=== PATIENT | male | born 1945 | race Caucasian/White ===

== ENCOUNTER 2020-11-22 06:25 | Day surgery (SDC) | payer OTHER ==
[~2020-11-22] VITALS: Ht 175.3 cm; Wt 59.1 kg
[~2020-11-22 06:25] MED LIST: ALBUTEROL SULF8.5 GM INH; ASPIR 8181 MG PO; ASPIRIN EC81 MG PO; AUGMENTIN 875-1 EACH PO; COLACE100 MG PO; COMBIVENT RESPIM4 GM INH; COZAAR100 MG PO; COZAAR25 MG PO; GLIPIZIDE XL5 MG PO; GLIPIZIDE5 MG PO; GLUCOPHAGE500 MG PO; HYDROCODON-ACE1 EA10 PO; LANTUS100 UNITS/ SUB-Q; METFORMIN HCL500 MG PO; NORVASC10 MG PO; OMEPRAZOLE10 MG PO; OMEPRAZOLE20 M1 PO; PERCOCET 5-3251 EACH PO; PERCOCET 7.5-31 EACH PO; PREDNISONE10 MG PO; PREDNISONE20 MG PO; REGLAN10 MG PO; REQUIP0.5 MG PO; ZITHROMAX250 MG PO
--- NOTE | 2020-11-22 09:17 | NUR ---
11/22/20 0917 Mackenzie Henderson 0904- PT ARRIVES TO PACU NONAROUSABLE TO NOXIOUS STIMULI WITH AN OPA IN PLACE. RESP EVEN AND SHALLOW. OXYGEN SAT HIGH 90'S ON 6L VIA MASK. 0909- PT REACTIVE TO STIMULI AND GAGGING ON HIS OPA. PT INSTRUCTED TO OPEN HIS MOUTH AND OPA REMOVED. OXYGEN MASK REPLACED AT 6L VIA. PT STARTS COUGHING FREQUENTLY. PRESSURE BEING HELD TO PT'S RIGHT INCISION. PT SOUNDS LIKE HE IS COUGHING UP SECRETIONS. MOUTH SUCTIONED. LUNG TODD ARE COARSE WITH A SLIGHT EXPIRATORY WHEEZE. DR. CARR NOTIFIED AND NEW ORDER RECEIVED.
[2020-11-22] MEDS ORDERED: IBUPROFEN600 MG PO (09:26)
[2020-11-22] MEDS ORDERED: ACETAMINOPHEN500 MG PO (09:27)
[2020-11-22] MEDS ORDERED: OXYCODON-ACETA1 EAC2 PO (09:27)
--- NOTE | 2020-11-22 10:44 | NUR ---
NEW VERBAL ORDER RECIEVED FOR T3 TO SUPRESS COUGH WELL TREAT PAIN. MEDICATED PER EMAR.
--- NOTE | 2020-11-23 10:04 | OR ---
[facility] [address], [place] [address] Signed DATE OF OPERATION: 11/22/2020 SURGEON: Irene Carr MD PREOPERATIVE DIAGNOSES: 1. Symptomatic right inguinal hernia. 2. Underlying chronic obstructive pulmonary disease, episodic cough. POSTOPERATIVE DIAGNOSES: 1. Right inguinal hernia, direct and indirect; indirect sac with sliding component (bladder fat). 2. Cord lipoma with nodule. ANESTHESIA: General endotracheal, Steve Rachael, SHOE CLERK and local 20 mL of 0.25% Marcaine with epinephrine. INDICATION: This 75-year-old white man is known to me from the past and is a patient of Dr. Syed. 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 He has underlying COPD, chronic cough, diabetes mellitus, hypertension, and other problems, but has developed rather significant right inguinal hernia which is relatively large, but completely reducible but quite symptomatic (painful). He is admitted to undergo repair at this time. He understands the risks of bleeding, infection, recurrent hernia, particularly given his chronic cough and COPD and other unforeseen complications. Understanding this, he wished to proceed. FINDINGS: There was a moderate-size lipoma of the cord, which had a firm nodule in the distal portion. This was excised. The hernia defect includes an indirect hernia sac without incarceration of hollow viscus both with bladder fat and the medial wall, which was freed up and ultimately hernia sac excised and ligated. The floor of the inguinal canal had an obvious direct defect as well. Implantation of Prolene mesh was undertaken in an underlay technique allowing for good repair of the hernia. Of note, the ilioinguinal nerve was well identified and preserved throughout. Electronically Signed By: IRENE CARR MD 11/23/20 1004 PATIENT NAME: ROSIE JANE OPERATIVE REPORT DATE OF : 43 REPORT #: [id number] PHYSICIAN: IRENE CARR MD PCP: ANTONELLA SYED MD REPORT IS CONFIDENTIAL AND NOT TO BE RELEASED WITHOUT AUTHORIZATION [facility] [address], [place] [address] Signed DESCRIPTION OF PROCEDURE: The patient was brought to the operating room, given a general endotracheal anesthetic. Preoperative antibiotic Ancef was given. Sequential compression device stockings were used and heparin subcutaneously administered. The lower abdomen was clipped and prepared with a chlorhexidine solution and draped sterilely. Affirmation of the right groin as the operative site was made. An incision was made cephalad to the pubic tubercle on the right side. Dissection was carried through the subcutaneous tissue with electrocautery. External oblique incised along its fibers and underlying ilioinguinal nerve was dissected free from the cremasteric muscle fibers and reflected around the external oblique protecting it throughout. The cord was mobilized from the floor with blunt and electrocautery dissection. The cord was encircled with a Bloxom drain. Dissection in the medial anterior aspect of the cord revealed a hernia sac, which was meticulously dissected free from the cord structures. Initially, noted was a lipoma of the cord laterally positioned and with a firm nodule in the distal portion. The hernia sac was dissected free fully and opened and internal inspection showed no sign of incarcerated hollow viscus, but there was on the medial wall a sliding component of bladder fat. This was dissected free from the hernia sac. The hernia sac was secured at its neck with 2 separate interrupted 2-0 silk sutures amputated and the sac amputated and passed for pathology. The lipoma of the cord was dissected free and similarly excised. An Allis clamp was applied to the tendon of the transversus abdominis. Medial to the inferior epigastric vessel was a hernia defect consistent with direct inguinal hernia. The attenuated fibers of the fascia transversalis were incised and properitoneal fat bluntly . The segment of Prolene mesh was cut to an elliptical configuration and secured in an underlay technique with interrupted 2-0 Prolene sutures. A defect was cut in the graft to accommodate the cord. The tails of the graft were secured laterally with all due care. A 20 mL of 0.25% Marcaine with epinephrine was injected locally. The cord was replaced into the canal. Hemostasis assured with electrocautery. The ilioinguinal nerve was replaced to the inguinal canal and the external oblique was reapproximated with running 2-0 Vicryl suture. Bryant layer was reapproximated with interrupted 3-0 Vicryl and skin closed with running subcuticular 3-0 Vicryl. Steri-Strips were applied as was an Acticoat silver sponge dressing. The patient tolerated procedure well and transferred to the recovery room in good condition. Notable in recovery room was a fair amount of coughing and straining. Hopefully, there is no effect on the recent repair. Electronically Signed By: IRENE CARR MD 11/23/20 1004 PATIENT NAME: ROSIE JANE OPERATIVE REPORT DATE OF : 43 REPORT #: [id number] PHYSICIAN: IRENE CARR MD PCP: ANTONELLA SYED MD REPORT IS CONFIDENTIAL AND NOT TO BE RELEASED WITHOUT AUTHORIZATION [facility] [address] [place] [address] Signed MD RONEN Mancuso/MADIL /[id number] cc: Antonella Syed MD Copies: ANTONELLA SYED MD ~ Electronically Signed By: IRENE CARR MD 11/23/20 1004 PATIENT NAME: ROSIE JANE OPERATIVE REPORT DATE OF : 43 REPORT #: [id number] PHYSICIAN: IRENE CARR MD PCP: ANTONELLA SYED MD REPORT IS CONFIDENTIAL AND NOT TO BE RELEASED WITHOUT AUTHORIZATION
--- NOTE | 2020-11-27 15:39 | PATH ---
[facility] [address] [place], [place] [address] Signed SPECIMEN(S): A RIGHT INDIRECT INGUINAL HERNIA SAC SPECIMEN(S): B LIPOMA OF CORD SPECIMEN SOURCE: A. RIGHT INDIRECT INGUINAL HERNIA SAC B. LIPOMA OF CORD CLINICAL HISTORY: Right inguinal hernia. FINAL PATHOLOGIC DIAGNOSIS: A. Right inguinal hernia sac: - Hernia sac. B. Lipoma of cord: - Congested fibroadipose tissue, consistent with features seen in lipoma of cord. COMMENT: Regarding specimen A, the specimen consists of benign fibrovascular tissue. There are changes compatible with a hernia sac. TWK:[facility]:C2NR MICROSCOPIC EXAMINATION: Histologic sections of all submitted blocks are examined by light microscopy. These findings, together with the gross examination, support the pathologic diagnosis. GROSS DESCRIPTION: Two specimens are received in two containers, labeled "JA." A. The specimen, labeled "JA, A," and designated on the requisition "right inguinal hernia sac," is received in formalin and consists of a portion of pink-mcginnis soft to membranous tissue (4.1 x 2.7 x 0.8 cm). Reporting Consultant sections are submitted in cassette A1. B. The specimen, labeled "JA, B," and designated on the requisition "lipoma of cord," is received in formalin and consists of a portion of yellow-mcginnis fatty tissue (5.5 x 2.3 x 1.3 cm). The specimen is inked blue and serially sectioned to reveal a yellow-mcginnis fatty lobulated cut surface with focal red-brown slightly firm area (1.6 x 1.4 x 1.0 cm). Reporting Consultant sections are submitted as follows: (B1) slightly firm area (B2-B3) fatty tissue PATIENT NAME: ROSIE JANE PATHOLOGY DATE OF : 43 REPORT #: [id number] PHYSICIAN: CAR YOUNG PCP: ANTONELLA SYED MD REPORT IS CONFIDENTIAL AND NOT TO BE RELEASED WITHOUT AUTHORIZATION [facility] [address] [facility] [place], [place] [address] Signed AC (under the direct supervision of a pathologist) The Gross Description was prepared using a voice recognition system. The report was reviewed for accuracy; however, sound-alike word errors, addition and/or deletions may occur. If there is any question about this report, please contact Client Services. PERFORMING LABORATORY: The technical component was performed by [employer], [address] [place] [address] (Rn Lvn: Awilda Napoles MD; CLIA# [id number]). The professional interpretation was performed by [facility], [address] [place] [address]. Diagnostician: Naren Wolf MD Pathologist Electronically Signed 11/27/2020 Copies: ~ PATIENT NAME: ROSIE JANE PATHOLOGY DATE OF : 43 REPORT #: [id number] PHYSICIAN: CAR PATHOLOGY PCP: ANTONELLA SYED MD REPORT IS CONFIDENTIAL AND NOT TO BE RELEASED WITHOUT AUTHORIZATION
== END 2020-11-22 11:25 | disposition home or self-care (01) ==
LOC: DS 06:25
PROVIDERS: ATTEND Surgery
PROC: 0YU50JZ Supplement Right Inguinal Region with Synthetic Substitute, Open Approach (ICD-10-PCS; principal; 2020-11-22 06:45)
DX: K40.90 Unilateral inguinal hernia, without obstruction or gangrene, not specified as recurrent (principal); D17.6 Benign lipomatous neoplasm of spermatic cord; J44.9 Chronic obstructive pulmonary disease, unspecified; I10 Essential (primary) hypertension; E11.9 Type 2 diabetes mellitus without complications; E78.00 Pure hypercholesterolemia, unspecified; K21.9 Gastro-esophageal reflux disease without esophagitis; M19.90 Unspecified osteoarthritis, unspecified site; G47.33 Obstructive sleep apnea (adult) (pediatric); F17.210 Nicotine dependence, cigarettes, uncomplicated; Z88.1 Allergy status to other antibiotic agents; Z88.8 Allergy status to other drugs, medicaments and biological substances; Z79.82 Long term (current) use of aspirin; Z79.4 Long term (current) use of insulin; Z79.899 Other long term (current) drug therapy; Z86.010 Personal history of colon polyps
CPT/HCPCS: 00830; 88302; 88304; C1781; J0131; J0690; J1100; J1644; J1885; J2001; J2370; J2405; J2704; J3010

== ENCOUNTER 2021-04-15 09:03 | Emergency (ER) | payer MEDICARE ==
[~2021-04-15] VITALS: Ht 175.3 cm; Wt 59.0 kg
[~2021-04-15 09:03] MED LIST changes: +ACETAMINOPHEN500 MG PO; +IBUPROFEN600 MG PO; +OXYCODON-ACETA1 EAC2 PO
[2021-04-15] MEDS ORDERED: PREDNISONE20 MG PO (12:07)
[2021-04-15] MEDS ORDERED: PERCOCET 5-3251 EACH PO (12:39)
--- NOTE | 2021-04-16 21:18 | EKG ---
[facility] [address] [facility] [place], [place] [address] Signed Normal sinus rhythm Left axis deviation Nonspecific ST abnormality Abnormal ECG When compared with ECG of 19-NOV-2020 10:55, QRS axis shifted left Confirmed by EUSEBIO LA DO ([id number]) on 04/16/2021 9:18:34 PM Electronically Signed By: EUSEBIO LA DO 04/16/212117 PATIENT NAME: ROSIE JANE Electrocardiogram DATE OF : 43 PHYSICIAN: EUSEBIO LA DO REPORT #: [id number] REPORT IS CONFIDENTIAL AND NOT TO BE RELEASED WITHOUT AUTHORIZATION
== END 2021-04-15 12:45 | disposition home or self-care (01) ==
LOC: ED 09:03
DX: J44.1 Chronic obstructive pulmonary disease with (acute) exacerbation (principal); I10 Essential (primary) hypertension; E11.9 Type 2 diabetes mellitus without complications; E78.00 Pure hypercholesterolemia, unspecified; F17.200 Nicotine dependence, unspecified, uncomplicated; Z88.1 Allergy status to other antibiotic agents; Z79.899 Other long term (current) drug therapy; Z79.82 Long term (current) use of aspirin; Z79.4 Long term (current) use of insulin; Z79.84 Long term (current) use of oral hypoglycemic drugs; Z20.822 Contact with and (suspected) exposure to COVID-19
CPT/HCPCS: 71045; 73630; 80048; 81001; 83880; 84484; 85025; 93005; 93010; 94640; 96374; 99285-25; C9803; J7512; U0003

== ENCOUNTER 2021-07-11 06:11 | Day surgery (SDC) | payer OTHER ==
[~2021-07-11] VITALS: Ht 175.3 cm; Wt 60.5 kg
--- NOTE | ~2021-07-11 | OR ---
[facility] [place] [facility] [address] [place], [place] [address] Draft DATE OF OPERATION: 07/11/2021 SURGEON: Irene Carr MD PREOPERATIVE DIAGNOSIS: History of Whipple resection and presumed gastroparesis. POSTOPERATIVE DIAGNOSES: 1. Anatomy consistent with Whipple resection and probable pyloric preservation. 2. Mild distal esophagitis with minimal Fierro's epithelial changes. 3. Retention of food in stomach (modest) probable gastroparesis with chronic gastritis. PROCEDURE: Upper endoscopy with biopsy. ANESTHESIA: Intravenous sedation; propofol infusion, Steve Cano CRNA. INDICATION: This 76-year-old white man is a patient of Dr. Syed at [facility]. He is referred for upper endoscopy. The patient is thought to have gastroparesis related in part to Whipple resection for duodenal tumor several years ago. He has no dysphagia or hematemesis. He has numerous other medical problems including advanced COPD. He understands the risk of bleeding, infection, and perforation related to upper endoscopy and wished to proceed. FINDINGS: There was retained material within the gastric remnant. It appeared that the pylorus was probably preserved (pylorus preserving Whipple resection). There was mild chronic distal esophagitis with minimal Fierro's changes. Retention of some portion of food in the stomach and mild gastritis. The jejunal limb appeared normal. The anastomosis was not strictured. PROCEDURE: The patient was brought to the endoscopy suite and placed in the lateral decubitus position with full cardiopulmonary monitoring and was given intravenous sedation with propofol infusional technique by the refinisher. A bite block was placed through the patient was edentulous. Ancef was given preoperatively. After satisfactory sedation, an Olympus video upper endoscope was passed in the hypopharynx. The vocal cords appeared normal. Scope was easily passed in the esophagus. Throughout its length, it had PATIENT NAME: ROSIE JANE OPERATIVE REPORT DATE OF : 43 REPORT #: [id number] PHYSICIAN: IRENE CARR MD PCP: JOHAN HERRERA MD REPORT IS CONFIDENTIAL AND NOT TO BE RELEASED WITHOUT AUTHORIZATION [facility] [place] [facility] [address] [place], [place] [address] Draft a chronic inflammatory appearance and some mucoid material. There was a feline appearance of the esophagus, but not typical of his eosinophilic esophagitis. The scope was passed into the stomach (gastric remnant) without problem showing retention of some mucoid bilious stained fluid suggestive though not diagnostic of gastroparesis. Scope was advanced to the gastrojejunal anastomosis which was widely patent. The scope was passed through it easily and the jejunal limb appeared normal, it was biopsied nevertheless. The scope was withdrawn and stomach biopsies were obtained as well as anastomotic biopsies. Retroflexed view showed a reasonably good flap valve. The scope was withdrawn to the distal esophagus. Small island of Fierro's epithelium was noted and not worrisome in appearance. Biopsies were obtained. The scope was withdrawn to the mid esophagus where biopsies were additionally obtained. Scope was removed and the patient was taken to the recovery room in good condition. CONCLUDING DIAGNOSIS: Anatomy consistent with prior Whipple resection with probable pyloric preservation though uncertain. There appears to be some component of delayed gastric emptying most likely, but no sign of gastric outlet obstruction. The flap valve was normal. There is minimal Fierro's epithelium. PLAN: If epigastric pain should occur, consideration might be made for Carafate prescription. Promotility agents are unlikely to be too effective in his case and his symptoms are rather minimal if any currently. He will return to the ongoing care of Dr. Syed at the [facility]. MD RONEN Mancuso/MODL /[id number] cc: Antonella Syed MD Copies: ANTONELLA SYED MD PATIENT NAME: ROSIE JANE OPERATIVE REPORT DATE OF : 43 REPORT #: [id number] PHYSICIAN: IRENE CARR MD PCP: JOHAN HERRERA MD REPORT IS CONFIDENTIAL AND NOT TO BE RELEASED WITHOUT AUTHORIZATION [facility] [place] [facility] [address] [place] [id number] Draft ~ PATIENT NAME: ROSIE JANE OPERATIVE REPORT DATE OF : 43 REPORT #: [id number] PHYSICIAN: IRENE CARR MD PCP: JOHAN HERRERA MD REPORT IS CONFIDENTIAL AND NOT TO BE RELEASED WITHOUT AUTHORIZATION
--- NOTE | 2021-07-11 08:03 | NUR ---
07/11/21 0803 Andrew,Kristen 0747 PT ARRIVED TO PACU ON 6L VIA NC, PT ASLEEP AND RESP EVEN AND UNLABORED. O2 DECREASED TO 2L. 0758 PT STARTS COUGHING AND O2 REMOVED. PT OPENS HIS EYES AND THEN EASILY FALLS BACK TO SLEEP.
--- NOTE | 2021-07-11 13:28 | NUR ---
PT ALERT, ORIENTED AND SUPPORTED BY HIS JULIUS. ALL QUESTIONS ASKED ANSWERED. PT REQUESTED PRAYER, JULIUS WILL REMAIN FOR DC. WILL FOLLOW NEEDED
--- NOTE | 2021-07-12 10:41 | PATH ---
[facility] [address] [place], [place] [address] Signed SPECIMEN(S): A JEJUNUM BIOPSY SPECIMEN(S): B GASTROJEJUNAL ANASTOMOSIS BIOPSY SPECIMEN(S): C BODY BIOPSY SPECIMEN(S): D DISTAL ESOPHAGEAL BIOPSY SPECIMEN(S): E MID ESOPHAGEAL BIOPSY SPECIMEN SOURCE: A. JEJUNUM BIOPSY B. GASTROJEJUNAL ANASTOMOSIS BIOPSY C. BODY BIOPSY D. DISTAL ESOPHAGEAL BIOPSY E. MID ESOPHAGEAL BIOPSY CLINICAL HISTORY: EGD. Gastroparesis, history of malignant tumor of duodenum (Whipple). Post: Chronic gastritis, possible Fierro's. FINAL PATHOLOGIC DIAGNOSIS: A. Small bowel, jejunum, biopsy: - Small bowel mucosa with focal reactive epithelial changes and mild villous blunting. - Negative for increased intraepithelial lymphocytes. - Negative for dysplasia or malignancy. B. Gastrojejunal anastomosis, biopsy: - Small bowel mucosa with villous blunting and reactive epithelial changes. - Negative for increased intraepithelial lymphocytes. - Negative for dysplasia or malignancy. C. Stomach, body, biopsy: - Oxyntic mucosa with focal wide reactive gastropathy. - Negative for Helicobacter organisms on HE stain. - Negative for dysplasia or malignancy. D. Esophagus, distal, biopsy: - Squamocolumnar junctional mucosa with mild chronic inflammation and reactive epithelial changes, suggestive of reflux esophagitis. - Negative for intestinal metaplasia, dysplasia, or malignancy. E. Esophagus, mid, biopsy: - Squamous mucosa with mild reactive changes and focal hyperkeratosis. - Negative for increased intraepithelial eosinophils. - Negative for intestinal metaplasia, dysplasia, or malignancy. NAL:cml:C2NR PATIENT NAME: ROSIE JANE PATHOLOGY DATE OF : 43 REPORT #: [id number] PHYSICIAN: CAR PATHOLOGY PCP: JOHAN HERRERA MD REPORT IS CONFIDENTIAL AND NOT TO BE RELEASED WITHOUT AUTHORIZATION [facility] [address] [place], [place] [address] Signed MICROSCOPIC EXAMINATION: Histologic sections of all submitted blocks are examined by light microscopy. These findings, together with the gross examination, support the pathologic diagnosis. GROSS DESCRIPTION: Five specimens are received in five containers, labeled "JA." A. The specimen, labeled "JA, 1," and designated on the requisition "jejunum," is received in formalin and consists of one mcginnis soft tissue fragment that measures 0.3 cm in greatest dimension. The specimen is entirely submitted in cassette (A1). B. The specimen, labeled "JA, 2," and designated on the requisition "gastrojejunal anastomosis," is received in formalin and consists of one mcginnis soft tissue fragment that measures 0.3 cm in greatest dimension. The specimen is entirely submitted in cassette (B1). C. The specimen, labeled "JA, 3," and designated on the requisition "stomach body," is received in formalin and consists of two mcginnis soft tissue fragments that measure 0.2-0.3 cm in greatest dimension. The specimen is entirely submitted in cassette (C1). D. The specimen, labeled "JA, 4," and designated on the requisition "distal esophagus," is received in formalin and consists of two mcginnis soft tissue fragments that measure 0.3 cm in greatest dimension. The specimen is entirely submitted in cassette (D1). E. The specimen, labeled "JA, 5," and designated on the requisition "mid esophagus," is received in formalin and consists of two mcginnis soft tissue fragments that measure 0.3-0.5 cm in greatest dimension. The specimen is entirely submitted in cassette (E1). AT (under the direct supervision of a pathologist) The Gross Description was prepared using a voice recognition system. The report was reviewed for accuracy; however, sound-alike word errors, addition and/or deletions may occur. If there is any question about this report, please contact Client Services. PERFORMING LABORATORY: The technical component was performed by [employer] [address] (CLIA# [id number]). Professional interpretation was performed by [facility], [address] [address] (CLIA# [id number]). PATIENT NAME: ROSIE JANE PATHOLOGY DATE OF : 43 REPORT #: [id number] PHYSICIAN: CAR YOUNG PCP: JOHAN HERRERA MD REPORT IS CONFIDENTIAL AND NOT TO BE RELEASED WITHOUT AUTHORIZATION [facility] [address] [place], [place] [address] Signed Diagnostician: Jeannette Kapadia MD Pathologist Electronically Signed 07/12/2021 Copies: ~ PATIENT NAME: ROSIE JANE PATHOLOGY DATE OF : 43 REPORT #: [id number] PHYSICIAN: CAR PATHOLOGY PCP: JOHAN HERRERA MD REPORT IS CONFIDENTIAL AND NOT TO BE RELEASED WITHOUT AUTHORIZATION
== END 2021-07-11 08:39 | disposition home or self-care (01) ==
LOC: OPS 06:11 → DS 06:13 → OPS 07:30 → DS 10:00
PROVIDERS: ATTEND Surgery
PROC: 0DB78ZX Excision of Stomach, Pylorus, Via Natural or Artificial Opening Endoscopic, Diagnostic (ICD-10-PCS; 2021-07-11)
PROC: 0DB68ZX Excision of Stomach, Via Natural or Artificial Opening Endoscopic, Diagnostic (ICD-10-PCS; 2021-07-11)
PROC: 0DBA8ZX Excision of Jejunum, Via Natural or Artificial Opening Endoscopic, Diagnostic (ICD-10-PCS; 2021-07-11)
PROC: 0DB28ZX Excision of Middle Esophagus, Via Natural or Artificial Opening Endoscopic, Diagnostic (ICD-10-PCS; principal; 2021-07-11 07:30)
DX: K31.9 Disease of stomach and duodenum, unspecified (principal); K20.90 Esophagitis, unspecified without bleeding; J44.9 Chronic obstructive pulmonary disease, unspecified; I10 Essential (primary) hypertension; C17.0 Malignant neoplasm of duodenum; Z88.1 Allergy status to other antibiotic agents; Z88.8 Allergy status to other drugs, medicaments and biological substances
CPT/HCPCS: J0690; J2704; J7121

== ENCOUNTER 2021-11-04 10:33 | Emergency (ER) | payer OTHER ==
[~2021-11-04] VITALS: Ht 175.3 cm; Wt 51.7 kg
[2021-11-04] MEDS ORDERED: DOXYCYCLINE HY100 MG PO (13:59)
[2021-11-04] MEDS ORDERED: PREDNISONE20 MG PO (13:59)
--- NOTE | 2021-11-05 07:29 | EKG ---
[facility] [address] [facility] [place] [address] Signed Sinus rhythm with premature supraventricular complexes and with occasional and consecutive premature ventricular complexes Low voltage QRS Nonspecific ST and T wave abnormality Abnormal ECG When compared with ECG of 15-APR-2021 10:56, premature ventricular complexes are now present premature supraventricular complexes are now present QRS axis shifted right ST more depressed in Inferior leads Confirmed by DARIUS RIDER MD ([id number]) on 11/05/2021 7:29:08 AM Electronically Signed By: DARIUS RIDER MD 11/05/21 0729 PATIENT NAME: ROSIE JANE Electrocardiogram DATE OF : 43 PHYSICIAN: DARIUS RIDER MD REPORT #: [id number] REPORT IS CONFIDENTIAL AND NOT TO BE RELEASED WITHOUT AUTHORIZATION
== END 2021-11-04 14:41 | disposition home or self-care (01) ==
LOC: ED 10:33
DX: J40 Bronchitis, not specified as acute or chronic (principal); E11.649 Type 2 diabetes mellitus with hypoglycemia without coma; I10 Essential (primary) hypertension; J44.9 Chronic obstructive pulmonary disease, unspecified; F17.200 Nicotine dependence, unspecified, uncomplicated; Z88.8 Allergy status to other drugs, medicaments and biological substances; Z79.899 Other long term (current) drug therapy; Z79.82 Long term (current) use of aspirin; Z79.4 Long term (current) use of insulin
CPT/HCPCS: 36415; 36600; 71045; 80053; 81001; 82803; 83605; 83690; 84484; 85025; 87502; 93005; 93010; 94640; 96374; 99285-25; J1100; U0003

== ENCOUNTER 2021-12-05 17:07 | Emergency (ER) | payer OTHER, MEDICARE ==
[~2021-12-05] VITALS: Ht 175.3 cm; Wt 56.7 kg
[~2021-12-05 17:07] MED LIST changes: +ADVAIR 500-501 EACH INH; -ALBUTEROL SULF8.5 GM INH; +BACLOFEN20 MG PO; +DOXYCYCLINE HY100 MG PO; -GLUCOPHAGE500 MG PO; +HYDROCODON-ACE1 EAC8 PO; +IPRAT-ALBUT 0.5-3 ML INH; +LANTUS SOL100 UNIT/1 SUB-Q; -LANTUS100 UNITS/ SUB-Q; +MEGESTROL400 MG/10 PO; +MULTI VITAMIN1 EACH PO; +NARCAN4 MG NAS; +PRAVASTATIN SOD80 MG PO; +PRESERVISION A1 EACH PO; +PROVENTIL HFA6.7 GM INH; -REQUIP0.5 MG PO; +ROPINIROLE HCL4 MG PO
--- OUTSIDE RECORDS SUMMARY | 2021-12-05 17:14 | XMS ---
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 CRITERIA MET - [facility] - 2 Visits in 30 Days CARE PROVIDERS [facility] Internal Medicine: Pulmonary Disease Current PHONE: Unknown SHARON [facility] Current PHONE: [phone] Sonali has no Care Guidelines for this patient. E.D. VISIT COUNT (12 MO.) [address] [place] [address] TOTAL 4 NOTE: Visits indicate total known visits. 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 - long term (current) use of aspirin - Essential (primary) hypertension - Pure hypercholesterolemia, unspecified - Contact with and (suspected) exposure to COVID-19 - Weakness - Type 2 diabetes mellitus without complications - long term (current) use of insulin - Allergy status to other antibiotic agents - long term (current) use of oral hypoglycemic drugs INPATIENT VISIT TRACKING (12 MO.) 11/07/2021:17 [facility] [place] TYPE: Observation COMPLAINT: - JUAN F DIAGNOSES: - Restless legs syndrome - Chronic obstructive pulmonary disease with (acute) exacerbation - Atrial premature depolarization - Chronic pain syndrome - Unspecified fall, initial encounter - Contact with and (suspected) exposure to COVID-19 - long term (current) use of oral hypoglycemic drugs - long term (current) use of aspirin - FDC (current) use of insulin - Opioid dependence, uncomplicated - Allergy status to other drugs, medicaments and biological substances - Acute kidney failure, unspecified - Allergy status to other antibiotic agents - Nicotine dependence, unspecified, uncomplicated - Essential (primary) hypertension - Type 2 diabetes mellitus with hyperglycemia [email or web address]
[2021-12-05] MEDS ORDERED: PLAVIX75 MG PO (20:01)
--- NOTE | 2021-12-07 17:35 | EKG ---
[facility] [address] [facility] [place] [address] Signed Normal sinus rhythm Left anterior fascicular block Abnormal ECG When compared with ECG of 07-NOV-2021 15:41, premature atrial complexes are no longer present Confirmed by BRETT DÍAZ MD ([id number]) on 12/07/2021 5:35:37 PM Electronically Signed By: BRETT DÍAZ MD 12/07/21 1735 PATIENT NAME: ROSIE JANE Electrocardiogram DATE OF : 43 PHYSICIAN: BRETT DÍAZ MD REPORT #: [id number] REPORT IS CONFIDENTIAL AND NOT TO BE RELEASED WITHOUT AUTHORIZATION
== END 2021-12-05 20:30 | disposition home or self-care (01) ==
LOC: ED 17:07
DX: G45.9 Transient cerebral ischemic attack, unspecified (principal); I10 Essential (primary) hypertension; J44.9 Chronic obstructive pulmonary disease, unspecified; E11.9 Type 2 diabetes mellitus without complications; F17.200 Nicotine dependence, unspecified, uncomplicated; Z88.1 Allergy status to other antibiotic agents; Z88.8 Allergy status to other drugs, medicaments and biological substances; Z79.52 Long term (current) use of systemic steroids; Z79.4 Long term (current) use of insulin
CPT/HCPCS: 36415; 70450; 70496; 70498; 71045; 80053; 84484; 85025; 85610; 85730; 87502; 93005; 93010; 99285-25; C9803; Q3014; Q9967; U0003

== ENCOUNTER 2021-12-29 02:32 | Emergency (ER) | payer OTHER, MEDICARE ==
[~2021-12-29] VITALS: Ht 175.3 cm; Wt 55.8 kg
[~2021-12-29 02:32] MED LIST changes: +CEFPODOXIME PR200 MG PO; +PLAVIX75 MG PO
--- OUTSIDE RECORDS SUMMARY | 2021-12-29 02:38 | XMS ---
PreManage Notification: ROSIE JANE Security Pulpit Operator Events No recent Security Events currently on file CRITERIA MET - [facility] - 2 Visits in 30 Days CARE PROVIDERS [facility] Internal Medicine: Pulmonary Disease Current PHONE: Unknown JOHAN HERRERA [facility] Current PHONE: [phone] Sonali has no Care Guidelines for this patient. Durga VISIT COUNT (12 MO.) [address] [place] [address] TOTAL 6 NOTE: Visits indicate total known visits. ED/UCC VISIT TRACKING (12 MO.) 12/29/2021 02:32 [facility] TYPE: Emergency COMPLAINT: - BLOOD SUGAR PROBLEM 12/13/2021 08:54 [facility] TYPE: Emergency COMPLAINT: - CHEST PAIN 12/05/2021 17:07 [facility] TYPE: Emergency COMPLAINT: - POSS STROKE DIAGNOSES: - Nicotine dependence, unspecified, uncomplicated - Contact with and (suspected) exposure to COVID-19 - Chronic obstructive pulmonary disease, unspecified - Weakness - Transient cerebral ischemic attack, unspecified - terminal clerk (current) use of systemic steroids - USP (current) use of insulin - Type 2 diabetes mellitus without complications - Allergy status to other drugs, medicaments and biological substances - Allergy status to other antibiotic agents - Essential (primary) hypertension 11/07/2021 15:16 [facility] TYPE: Emergency COMPLAINT: - FALL 11/04/2021 10:33 [facility] TYPE: Emergency COMPLAINT: - WEAKNESS DIAGNOSES: - terminal clerk (current) use of insulin - Essential (primary) hypertension - Nicotine dependence, unspecified, uncomplicated - Contact with and (suspected) exposure to COVID-19 - USP (current) use of aspirin - Bronchitis, not specified as acute or chronic - Allergy status to other drugs, medicaments and biological substances - Shortness of breath - Other long term care social worker (current) drug therapy - Type 2 diabetes mellitus with hypoglycemia without coma - Chronic obstructive pulmonary disease, unspecified 04/15/2021 09:04 [facility] TYPE: Emergency COMPLAINT: - MULTIPLE COMPLAINTS DIAGNOSES: - terminal clerk (current) use of oral hypoglycemic drugs - Nicotine dependence, unspecified, uncomplicated - Chronic obstructive pulmonary disease with (acute) exacerbation - Other long term care social worker (current) drug therapy - USP (current) use of aspirin - Essential (primary) hypertension - Pure hypercholesterolemia, unspecified - Contact with and (suspected) exposure to COVID-19 - Weakness - Type 2 diabetes mellitus without complications - USP (current) use of insulin - Allergy status to other antibiotic agents INPATIENT VISIT TRACKING (12 MO.) 12/15/2021 12:[address] [facility] TYPE: Medical Surgical COMPLAINT: - PNEUMONIA DIAGNOSES: - Essential (primary) hypertension - Personal history of malignant neoplasm of pancreas - Essential (primary) hypertension - Edema, unspecified - Contact with and (suspected) exposure to COVID-19 - Allergy status to other antibiotic agents - Pneumonia due to other streptococci - Pneumonia due to other streptococci - Allergy status to other drugs, medicaments and biological substances - Other specified postprocedural states - Chronic obstructive pulmonary disease with (acute) lower respiratory infection - Allergy status to other drugs, medicaments and biological substances - Nicotine dependence, cigarettes, uncomplicated - Other specified postprocedural states - Pneumonia, unspecified organism - Edema, unspecified - Other [facility] (current[facility] drug therapy - Chronic obstructive pulmonary disease with (acute) lower respiratory infection - Type 2 diabetes mellitus without complications - Type 2 diabetes mellitus without complications - Other long term care social worker (current) drug therapy - Tobacco abuse counseling - Tobacco abuse counseling - Contact with and (suspected) exposure to COVID-19 - Personal history of malignant neoplasm of pancreas - Allergy status to other antibiotic agents - Nicotine dependence, cigarettes, uncomplicated 11/07/2021 15:17 [facility] TYPE: Observation COMPLAINT: - JUAN F DIAGNOSES: - Type 2 diabetes mellitus with hyperglycemia - Restless legs syndrome - Chronic obstructive pulmonary disease with (acute) exacerbation - Atrial premature depolarization - Chronic pain syndrome - Unspecified fall, initial encounter - Contact with and (suspected) exposure to COVID-19 - terminal clerk (current) use of oral hypoglycemic drugs - terminal clerk (current) use of aspirin - USP (current) use of insulin - Opioid dependence, uncomplicated - Allergy status to other drugs, medicaments and biological substances - Acute kidney failure, unspecified - Allergy status to other antibiotic agents - Nicotine dependence, unspecified, uncomplicated - Essential (primary) hypertension [email or web address]
== END 2021-12-29 07:10 | disposition home or self-care (01) ==
LOC: ED 02:32
DX: E11.649 Type 2 diabetes mellitus with hypoglycemia without coma (principal); J44.9 Chronic obstructive pulmonary disease, unspecified; R33.9 Retention of urine, unspecified; I10 Essential (primary) hypertension; E78.00 Pure hypercholesterolemia, unspecified; F17.200 Nicotine dependence, unspecified, uncomplicated; Z88.1 Allergy status to other antibiotic agents; Z88.8 Allergy status to other drugs, medicaments and biological substances; Z79.899 Other long term (current) drug therapy; Z79.4 Long term (current) use of insulin; Z79.02 Long term (current) use of antithrombotics/antiplatelets; Z79.82 Long term (current) use of aspirin
CPT/HCPCS: 36415; 51702; 71045; 74177; 80053; 81001; 83880; 85025; 85610; 85730; 94640; 99285-25; J1170; J2405; J2930; Q9967

== ENCOUNTER 2021-12-30 10:10 | Emergency (ER) | payer OTHER, MEDICARE ==
[~2021-12-30] VITALS: Ht 175.3 cm; Wt 55.8 kg
--- OUTSIDE RECORDS SUMMARY | 2021-12-30 10:22 | XMS ---
PreManage Notification: ROSIE JANE Security Partridge Farmer Events No recent Security Events currently on file CRITERIA MET - 6 ED Visits in 6 Months - [facility] - 2 Visits in 30 Days CARE PROVIDERS [facility] Internal Medicine: Pulmonary Disease Current PHONE: Unknown SHARON [facility] Current PHONE: [phone] Sonali has no Care Guidelines for this patient. Durga VISIT COUNT (12 MO.) [address] [place] [address] TOTAL 7 NOTE: Visits indicate total known visits. ED/UCC VISIT TRACKING (12 MO.) 12/30/2021 10:10 [facility] TYPE: Emergency COMPLAINT: - CHEST PAIN 12/29/2021 02:32 [facility] TYPE: Emergency COMPLAINT: - BLOOD SUGAR PROBLEM 12/13/2021 08:54 [facility] TYPE: Emergency COMPLAINT: - CHEST PAIN 12/05/2021 17:07 [facility] TYPE: Emergency COMPLAINT: - POSS STROKE DIAGNOSES: - Weakness - Transient cerebral ischemic attack, unspecified - assisted (current) use of systemic steroids - assisted (current) use of insulin - Type 2 diabetes mellitus without complications - Allergy status to other drugs, medicaments and biological substances - Allergy status to other antibiotic agents - Essential (primary) hypertension - Nicotine dependence, unspecified, uncomplicated - Contact with and (suspected) exposure to COVID-19 - Chronic obstructive pulmonary disease, unspecified 11/07/2021 15:16 [facility] TYPE: Emergency COMPLAINT: - FALL 11/04/2021 10:33 [facility] TYPE: Emergency COMPLAINT: - WEAKNESS DIAGNOSES: - Contact with and (suspected) exposure to COVID-19 - termite exterminator helper (current) use of aspirin - Bronchitis, not specified as acute or chronic - Allergy status to other drugs, medicaments and biological substances - Shortness of breath - Other bed bug exterminator (current) drug therapy - Type 2 diabetes mellitus with hypoglycemia without coma - Chronic obstructive pulmonary disease, unspecified - assisted (current) use of insulin - Essential (primary) hypertension - Nicotine dependence, unspecified, uncomplicated 04/15/2021 09:04 [facility] TYPE: Emergency COMPLAINT: - MULTIPLE COMPLAINTS DIAGNOSES: - assisted (current) use of aspirin - Essential (primary) hypertension - Pure hypercholesterolemia, unspecified - Contact with and (suspected) exposure to COVID-19 - Weakness - Type 2 diabetes mellitus without complications - termite exterminator helper (current) use of insulin - Allergy status to other antibiotic agents - assisted (current) use of oral hypoglycemic drugs - Nicotine dependence, unspecified, uncomplicated - Chronic obstructive pulmonary disease with (acute) exacerbation - Other bed bug exterminator (current) drug therapy INPATIENT VISIT TRACKING (12 MO.) 12/15/2021 12:42 [facility] TYPE: Medical Surgical COMPLAINT: - PNEUMONIA DIAGNOSES: - Allergy status to other drugs, medicaments and biological substances - Pneumonia due to other streptococci - Other specified postprocedural states - Chronic obstructive pulmonary disease with (acute) lower respiratory infection - Allergy status to other drugs, medicaments and biological substances - Nicotine dependence, cigarettes, uncomplicated - Other specified postprocedural states - Pneumonia, unspecified organism - Other longterm (current) drug therapy - Edema, unspecified - Chronic obstructive pulmonary disease with (acute) lower respiratory infection - Type 2 diabetes mellitus without complications - Other bed bug exterminator (current) drug therapy - Type 2 diabetes mellitus without complications - Tobacco abuse counseling - Tobacco abuse counseling - Contact with and (suspected) exposure to COVID-19 - Personal history of malignant neoplasm of pancreas - Allergy status to other antibiotic agents - Nicotine dependence, cigarettes, uncomplicated - Essential (primary) hypertension - Personal history of malignant neoplasm of pancreas - Essential (primary) hypertension - Contact with and (suspected) exposure to COVID-19 - Edema, unspecified - Allergy status to other antibiotic agents - Pneumonia due to other streptococci 11/07/2021 15:17 [facility] TYPE: Observation COMPLAINT: - JUAN F DIAGNOSES: - Chronic pain syndrome - Unspecified fall, initial encounter - Contact with and (suspected) exposure to COVID-19 - termite exterminator helper (current) use of oral hypoglycemic drugs - termite exterminator helper (current) use of aspirin - termite exterminator helper (current) use of insulin - Opioid dependence, uncomplicated - Allergy status to other drugs, medicaments and biological substances - Acute kidney failure, unspecified - Allergy status to other antibiotic agents - Nicotine dependence, unspecified, uncomplicated - Essential (primary) hypertension - Type 2 diabetes mellitus with hyperglycemia - Restless legs syndrome - Chronic obstructive pulmonary disease with (acute) exacerbation - Atrial premature depolarization [email or web address]
--- NOTE | 2021-12-30 16:18 | EKG ---
[facility] [address] [place] [address] Signed Sinus rhythm with occasional premature ventricular complexes Left axis deviation Low voltage QRS Abnormal ECG When compared with ECG of 13-DEC-2021 08:55, premature ventricular complexes are now present Confirmed by DARIUS RIDER MD ([id number]) on 12/30/2021 4:18:26 PM Electronically Signed By: DARIUS RIDER MD 12/30/21 1618 PATIENT NAME: ROSIE JANE Electrocardiogram DATE OF : 43 PHYSICIAN: DARIUS RIDER MD REPORT #: [id number] REPORT IS CONFIDENTIAL AND NOT TO BE RELEASED WITHOUT AUTHORIZATION
== END 2021-12-30 12:30 | disposition home or self-care (01) ==
LOC: ED 10:10
DX: R07.9 Chest pain, unspecified (principal); K59.00 Constipation, unspecified; J44.9 Chronic obstructive pulmonary disease, unspecified; I10 Essential (primary) hypertension; E11.9 Type 2 diabetes mellitus without complications; E78.00 Pure hypercholesterolemia, unspecified; F17.200 Nicotine dependence, unspecified, uncomplicated; Z88.1 Allergy status to other antibiotic agents; Z88.8 Allergy status to other drugs, medicaments and biological substances; Z79.899 Other long term (current) drug therapy; Z79.4 Long term (current) use of insulin; Z79.84 Long term (current) use of oral hypoglycemic drugs
CPT/HCPCS: 36415; 71045; 80053; 83735; 84484; 85025; 93005; 93010; 94640; 99285-25

== ENCOUNTER 2022-10-21 12:24 | Emergency (ER) | payer MEDICARE ==
[~2022-10-21] VITALS: Ht 175.3 cm; Wt 60.9 kg
--- OUTSIDE RECORDS SUMMARY | ~2022-10-21 | XMS | Continuity of Care Document ---
Demographics + + + | Address | [address] | | | [place] [address] | + + + | Preferred Language | Unknown | + + + | Marital Status | | + + + | Yazidism Affiliation | Unknown | + + + | Race | White | + + + | Ethnic Group | Unknown | + + + Author + + + | Author | [facility] | + + + | Organization | [facility] | + + + | Address | [address] | | | [place] [address] | + + + | Phone | | + + + Care Team Providers + + + + | Care Aircraft Instrument Mechanic Name | Role | Phone | + + + + Unavailable | Unavailable | + + + + Allergies and Intolerances + + + + + + | date | description | facility | reaction | severity | + + + + + + | (no date) | NO ALLERGY | [facility] | (no reaction) | (no severity) | | | INFORMATION ON | Medical Center | | | | | FILE | Hospital | | | + + + + + + Encounters No information. Functional Status No information. Immunizations No information. Medications No information. Problems + + + + | date | description | facility | + + + + | 2022-09-01 18:33 | TYPE 2 DIABETES MELLITUS | [facility] | | | WITHOUT COMPLICATIONS | | + + + + | 2022-09-01 18:33 | NICOTINE DEPENDENCE, | [facility] | | | UNSPECIFIED, UNCOMPLICATED | | + + + + | 2022-09-01 18:33 | Essential (primary) | [facility] | | | hypertension | | + + + + | 2022-09-01 18:33 | CHR OBSTRUCTIVE PULMON | [facility] | | | DISEASE WITH (ACUTE) LOWER | | + + + + | 2022-09-01 18:33 | CHRONIC OBSTRUCTIVE | [facility] | | | PULMONARY DISEASE W (ACUTE) | | | | EX | | + + + + | 2022-09-01 18:33 | PAIN IN LEFT SHOULDER | [facility] | + + + + | 2022-09-01 18:33 | CONTUSION OF LEFT ELBOW, | [facility] | | | INITIAL ENCOUNTER | | + + + + | 2022-09-01 18:33 | LACERATION WITHOUT FOREIGN | [facility] | | | BODY OF RIGHT ELBOW, IN | | + + + + | 2022-09-01 18:33 | LACERATION WITHOUT FOREIGN | [facility] | | | BODY OF LEFT ELBOW, INI | | + + + + | 2022-09-01 18:33 | LACERATION W/O FOREIGN | [facility] | | | BODY OF RIGHT FOREARM, INIT | | | | | | + + + + | 2022-09-01 18:33 | LACERATION WITHOUT FOREIGN | [facility] | | | BODY OF LEFT FOREARM, I | | + + + + | 2022-09-01 18:33 | STRIKING AGAINST OTH | [facility] | | | OBJECT W SUBSEQUENT FALL, | | | | INI | | + + + + | 2022-09-01 18:33 | USP (CURRENT) USE OF | [facility] | | | INSULIN | | + + + + | 2022-09-01 18:33 | COLOR CHECKER ROVING OR YARN (CURRENT) USE OF | [facility] | | | SYSTEMIC STEROIDS | | + + + + | 2022-09-01 18:33 | COLOR CHECKER ROVING OR YARN (CURRENT) USE OF | [facility] | | | ASPIRIN | | + + + + | 2022-09-01 18:33 | OTHER COLOR CHECKER ROVING OR YARN (CURRENT) | [facility] | | | DRUG THERAPY | | + + + + | 2022-09-01 18:33 | ALLERGY STATUS TO OTHER | [facility] | | | ANTIBIOTIC AGENTS STATUS | | + + + + | 2022-09-01 18:33 | ALLERGY STATUS TO OTH | [facility] | | | DRUG/MEDS/BIOL SUBST STATUS | | | | | | + + + + | 2022-09-01 18:33 | PRESENCE OF LEFT | [facility] | | | ARTIFICIAL HIP JOINT | | + + + + | 2022-09-26 08:41 | EFFUSION, LEFT ELBOW | [facility] | + + + + | 2022-09-26 08:41 | CONTUSION OF LEFT ELBOW, | [facility] | | | SUBSEQUENT ENCO | | + + + + | 2022-09-26 08:41 | CONTUSION OF LEFT ELBOW, | [facility] | | | SUBSEQUENT ENCOUNTER | | + + + + Procedures No information. Results/Labs No information. Social History No information. Vital Signs No information."
--- OUTSIDE RECORDS SUMMARY | ~2022-10-21 | XMS | Continuity of Care Document ---
Demographics + + + | Address | [address] | | | [place] [address] | + + + | Preferred Language | Unknown | + + + | Marital Status | | + + + | Hinduism Affiliation | Unknown | + + + | Race | White | + + + | Ethnic Group | Unknown | + + + Author + + + | Author | [facility] | + + + | Organization | [facility] | + + + | Address | [address] | | | [place] [address] | + + + | Phone | | + + + Care Team Providers + + + + | Care Sewer Connector Name | Role | Phone | + + + + Unavailable | Unavailable | + + + + Allergies and Intolerances + + + + + + | date | description | facility | reaction | severity | + + + + + + | (no date) | NO ALLERGY | [facility] | (no reaction) | (no severity) [...] + + + | 2022-09-01 18:33 | ASSISTED (CURRENT) USE OF | [facility] | | | INSULIN | | + + + + | 2022-09-01 18:33 | DEBIT AGENT (CURRENT) USE OF | [facility] | | | SYSTEMIC STEROIDS | | + + + + | 2022-09-01 18:33 | DEBIT AGENT (CURRENT) USE OF | [facility] | | | ASPIRIN | | + + + + | 2022-09-01 18:33 | OTHER DEBIT AGENT (CURRENT) | [facility] | | | DRUG [...]
[~2022-10-21 12:24] MED LIST changes: +AMOX TR-K CLV1 EAC1 PO; +COLCRYS0.6 MG PO; +FUROSEMIDE20 MG PO; +GABAPENTIN300 MG PO; +POTASSIUM CHLO10 ME1 PO; +SPIRIVA18 MCG INH
[2022-10-21] MEDS ORDERED: PREDNISONE20 MG PO (13:05)
[2022-10-21] MEDS ORDERED: CLOPIDOGREL75 MG PO (13:06)
[2022-10-21 17:50] VITALS: BP 116/72
--- NOTE | 2022-10-21 20:53 | EKG ---
[facility] [address] [place] [address] Signed Normal sinus rhythm Left axis deviation Low voltage QRS Abnormal ECG When compared with ECG of 01-SEP-2022 19:37, No significant change was found Confirmed by Bertha Sanchez MD () on 10/21/2022 8:53:09 PM Electronically Signed By: BERTHA SANCHEZ MD 10/21/222052 PATIENT NAME: CAMERONROSIE HARTMAN Electrocardiogram DATE OF : 43 PHYSICIAN: BERTHA SANCHEZ MD REPORT #: [id number] REPORT IS CONFIDENTIAL AND NOT TO BE RELEASED WITHOUT AUTHORIZATION
== END 2022-10-21 17:59 | disposition home or self-care (01) ==
LOC: ED 12:24
DX: R53.1 Weakness (principal); J44.9 Chronic obstructive pulmonary disease, unspecified; R60.0 Localized edema; I10 Essential (primary) hypertension; E11.9 Type 2 diabetes mellitus without complications; E78.00 Pure hypercholesterolemia, unspecified; F17.200 Nicotine dependence, unspecified, uncomplicated; Z88.1 Allergy status to other antibiotic agents; Z88.8 Allergy status to other drugs, medicaments and biological substances; Z79.899 Other long term (current) drug therapy; Z79.4 Long term (current) use of insulin; Z79.52 Long term (current) use of systemic steroids
CPT/HCPCS: 36415; 71045; 80053; 83735; 83880; 84484; 85025; 93005; 93010; 94640; 96374; 99285-25; 99406; J1940

== ENCOUNTER 2023-01-07 13:08 | Inpatient (IN) | payer OTHER ==
[~2023-01-07] VITALS: Ht 175.3 cm; Wt 59.0 kg
[~2023-01-07 13:08] MED LIST changes: +CLOPIDOGREL75 MG PO
[2023-01-07 13:34] LABS: BASOPHILS 0.8 % (0-2); EOSINOPHILS 3.8 % (0-6); HEMATOCRIT 42.4 % (35.0-50.0); HEMOGLOBIN 13.7 g/dL (12.0-18.0); LYMPHOCYTES 10.6 % (24-44); MCHC 32.4 g/dl (30-36); MCV 92.8 fl (81-99); MONOCYTES 8.7 % (0-12); NEUTROPHILS 76.1 % (39-80); PLATELET COUNT 213 K/uL (140-440); RBC 4.57 M/ul (4.3-5.7); RDW 16.5 (10.5-15.0)
[2023-01-07 13:46] LABS: ALBUMIN 3.7 g/dL (3.4-5.0); ANION GAP 13.5 (7-21); BILIRUBIN, TOTAL 0.4 ng/dL (0.2-1.0); BUN/CREATININE RATIO 19.54 (6.0-28.6); CALCIUM 9.7 mg/dL (8.5-10.1); CREATININE, SERUM 0.87 mg/dL (0.70-1.30); MAGNESIUM 2.1 mg/dL (1.8-2.4); POTASSIUM 4.5 mmol/L (3.5-5.1); PROTEIN, TOTAL 7.4 g/dL (6.4-8.2)
[2023-01-07 16:11] LABS: INFLUENZA B NAA NEGATIVE (NEGATIVE); RESPIRATORY SYNCYTIAL VIR NAA NEGATIVE (NEGATIVE)
--- NOTE | 2023-01-07 20:44 | EKG ---
[facility] [address] [place] [address] Signed Normal sinus rhythm Left axis deviation Abnormal ECG When compared with ECG of 05-NOV-2022 19:35, T wave amplitude has increased in Lateral leads Confirmed by Bertha Sanchez MD () on 01/07/2023 8:44:06 PM Electronically Signed By: BERTHA SANCHEZ MD 01/07/232043 PATIENT NAME: CAMERONROSIE HARTMAN Electrocardiogram DATE OF : 43 PHYSICIAN: BERTHA SANCHEZ MD REPORT #: [id number] REPORT IS CONFIDENTIAL AND NOT TO BE RELEASED WITHOUT AUTHORIZATION
--- NOTE | 2023-01-07 21:00 | NUR ---
PT ARRIVED TO UNIT AT 2030. PT ARRIVED DROWSY FROM PREVIOUSLY GIVEN ATIVAN, BUT ABLE TO COMMUNICATE AND IS A&O X4. PT IS A LITTLE FORGETFUL AT THIS TIME. PT ARRIVED ON 2L NC, SPO2 97%. LUNGS ARE COARSE AND DIMISHED, PT HAS A WET COUGH BUT IN NON PRODUCTIVE. BP AND HEART RYTHEM WNL. PT DID URINATE IN URINAL WITH OUT TROUBLE. PT DOES HAVE GENERALIZED BRUISING. FAMILY IS AT BEDSIDE. ALL QUESTIONS AND CONCERNS ADDRESSED. PT DID RECIEVE A SNACK. PT IS NOW RESTING, CALL LIGHT WITH IN REACH AND BED ALARM IS SET.
[2023-01-07 21:07] VITALS: BP 148/78
--- NOTE | 2023-01-07 22:00 | NUR ---
PT IS RESTING IN BED. VS ARE WNL. NO COMPLAINTS OF PAIN. ALL QUESTIONS AND CONCERNS ADDRESSED. CALL LIGHT WITH IN REACH.
[2023-01-08] VITALS (9 sets, daily range): BP systolic 111–145; BP diastolic 46–81
--- NOTE | 2023-01-08 | NUR ---
PT IS RESTING IN BED. VS ARE WNL, NO COMPLAINTS OF PAIN AT THIS TIME. PT ABLE TO USE URINAL. NO QUESTION OR CONCERNS AT THIS TIME. CALL LIGHT WITH IN REACH.
--- NOTE | 2023-01-08 02:00 | NUR ---
PT IS RESTING. PT DID REQUEST URINAL. NO COMPLAINTS OF PAIN. ALL QUESTIONS AND CONCERNS ADDRESSED. PT REPOSITIONS SELF. CALL LIGHT WITH IN REACH, BED ALARM SET.
--- NOTE | 2023-01-08 04:29 | NUR ---
PT RESTING IN BED, PT CALLED FOR URINAL. NO COMPLAINTS AT THIS TIME. PT REPOSITIONS SELF. CALL LIGHT WITH IN REACH AND BED ALARM SET. VS ARE WNL.
[2023-01-08 05:39] LABS: BASOPHILS 0.6 % (0-2); HEMATOCRIT 40.9 % (35.0-50.0); HEMOGLOBIN 13.3 g/dL (12.0-18.0); LYMPHOCYTES 6.9 % (24-44); MCHC 32.4 g/dl (30-36); MCV 92.4 fl (81-99); MONOCYTES 1.1 % (0-12); NEUTROPHILS 91.4 % (39-80); PLATELET COUNT 199 K/uL (140-440); RBC 4.43 M/ul (4.3-5.7); RDW 16.2 (10.5-15.0)
[2023-01-08 05:57] LABS: ALBUMIN 3.5 g/dL (3.4-5.0); ALBUMIN/GLOBULIN RATIO 0.97 (1.1-2.4); ANION GAP 14.3 (7-21); BILIRUBIN, TOTAL 0.4 ng/dL (0.2-1.0); BUN/CREATININE RATIO 26.08 (6.0-28.6); CALCIUM 9.3 mg/dL (8.5-10.1); CREATININE, SERUM 0.92 mg/dL (0.70-1.30); MAGNESIUM 2.1 mg/dL (1.8-2.4); PHOSPHORUS, INORGANIC 4.1 mg/dL (2.5-4.9); POTASSIUM 4.3 mmol/L (3.5-5.1); PROTEIN, TOTAL 7.1 g/dL (6.4-8.2)
--- NOTE | 2023-01-08 06:40 | NUR ---
PT IS UP TO CHAIR, CHAIR ALARM ON. VS WNL. PT IS RESTING COMFORTABLY. NO QUESTIONS OR CONCERNS AT THIS TIME. PT STANDBY ASSIST WITH WALKER. CALL LIGHT WITH IN REACH.
--- NOTE | 2023-01-08 07:30 | NUR ---
REPORT RECIEVED FROM SAFETY INVESTIGATOR RN. PATIENT RESTING IN THE CHAIR AT THIS TIME. PATIENT ALERT AND ORIENTED AND CALLS APPROPRIATELY. PATIENT USES THE URINAL ON HIS OWN WITH NO ISSUES. CALL LIGHT IN REACH.
--- NOTE | 2023-01-08 08:17 | NUR ---
PATIENT SITTING UP IN RECLINER. VITALS AND GLUCOSE CHARTED. BREAKFAST AND FRESH ICE WATER PROVIDED. WASHCLOTH PROVIDED FOR FACE AND HANDS. CALL LIGHT IN EASY REACH
[2023-01-08] MEDS ORDERED: PIOGLITAZONE HC15 MG PO (08:26)
[2023-01-08] MEDS ORDERED: LANTUS SOL100 UNIT/1 SUB-Q (08:50)
--- NOTE | 2023-01-08 09:30 | NUR ---
THIS RN IN TO SEE PATIENT. PATIENT MEDICATIONS GIVEN THIS AM. PATIENTS AT THE BEDSIDE AND REVIEWED PLAN OF CARE WITH PATIENT AND HIS . PATIENT WILL MOVE TO [place] TODAY. PATIENT STATES "I WANT TO GO HOME". UPDATED ON PLAN OF CARE THAT HE IS NOT READY YET, BUT IS MAKING IMPROVEMENT. PATIENT WILL BE UP TO WORK WITH PT/OT TODAY.
[2023-01-08] MEDS ORDERED: ECONAZOLE NITRA30 GM TOP (09:35)
--- NOTE | 2023-01-08 09:36 | NUR ---
MED REC COMPLETE
--- NOTE | 2023-01-08 10:00 | NUR ---
PATIENT UP WORKING WITH PT/OT. PATIENTS AT THE BEDSIDE.
--- NOTE | 2023-01-08 10:06 | NUR ---
PATIENT BACK TO ROOM AFTER WORKING WITH PT. AT BEDSIDE, CALL LIGHT IN EASY REACH
--- NOTE | 2023-01-08 10:50 | NUR ---
PATIENT SITTING UP IN RECLINER, , KANDI, IN ROOM WELL. STATES HE LIVES IN HOUSE WITH , HAS 2 STEPS TO GET IN. HAS BEEN WORKING WITH [facility]. STATES HE USES WALKER AND OCCASIONALLY CANE TO GET AROUND. STATES HE HAS A SHOWER CHAIR AND NEBULIZER WELL. NOT ON HOME OXYGEN CHRONICALLY. PATIENT STATES FINANCIALLY HE IS DOING FINE, CONFIRMS. PATIENT AND SPOUSE BOTH DRIVE, BUT PROVIDES TRANPORTATION PRIMARILY. CAN NOT THINK OF ANY CURRENT NEEDS AT THIS TIME.
--- NOTE | 2023-01-08 10:59 | NUR ---
PATIENT REPORT GIVEN TO JESSICA FIGUEROA. THIS RN AND DEANDRA STUDENT NURSE TRANSFERED PATIENT IN THE CHAIR TO HIS NEW ROOM ON [place] ROOM 112. HIS BED HAS A WAFFLE OVERLAY PLACED FOR PATIENTS COMFORT. PATIENT REPORTED THE BED LAST NIGHT WAS VERY UNCOMFORTABLE. THIS RN SPOKE WITH MD ABOUT PATIENTS ANXIETY. SEE EMAR FOR NEW ORDERES. PATIENTS HOME MED ALSO ORDERED AND ADMINISTERED PRIOR TO TRANSFER. ALL BELONGIGNS SENT WITH PATIENT. PATIENT AND DENY ANY FURTHER NEEDS AT THIS TIME.
--- NOTE | 2023-01-08 11:05 | NUR ---
Patient to the medical floor from CCU. Patient arrived alert and oriented x3, no acute distress. Patient is on 1L of oxygen per nc, sp02 94%. Patient reports being a bit short of breath at this time; encouraged deep breathing techniques. Patient oriented to room and call light. at bedside. Personal supplies and call light within reach.
--- NOTE | 2023-01-08 13:26 | NUR ---
PT CONSENTED TO PRAYER. PRAYED FOR QUAKER AND ABIDING PEACE.
--- NOTE | 2023-01-08 15:27 | NUR ---
ADMIN TYLENOL 650MG PO AND NEURONTIN 600MG PO FOR REPORTS OF LEG PAIN. PATIENT ASSISTED FROM CHAIR TO BED PER HIS REQUEST SO HE CAN TAKE A SHORT NAP. REMAINS AT BEDSIDE. FRESH WATER PROVIDED. PERSONAL SUPPLIES AND CALL LIGHT WITHIN REACH.
--- NOTE | 2023-01-08 17:27 | NUR ---
ADMIN ATIVAN 0.5MG PO FOR REPORTS OF ANXIETY.
--- NOTE | 2023-01-08 17:39 | NUR ---
PATIENT SITTING UP IN CHAIR EATING DINNER, TOLERATING WELL. PATIENT HAS NO NOTABLE DISTRESS, SP02 95% ON 0.5L OXYGEN PER NC. CALL LIGHT WITHIN REACH.
--- NOTE | 2023-01-08 19:30 | NUR ---
PATIENT RESTING IN BED. REPORT PROVIDED BY DAYSHIFT RN, PATIENT WITHOUT COMPLAINT AND CALL LIGHT WITHIN REACH.
--- NOTE | 2023-01-08 20:37 | NUR ---
CALL RECEIVED FROM JOJO IN LAB, CRITICAL GLUCOSE RESULT OF 595, DR SANCHEZ MADE AWARE AT [address] ORDERS FOR ADDITIONAL INSULIN. CLARIFIED INSULIN ORDERS WITH MD, INSTRUCTED TO GIVE THE 10 UNITS LONG ACTING WITH THE 10 UNITS REGULAR INSULIN NOW AND TO RECHECK BS AROUND [id number] AND TO NOTIFY MD WITH RESULTS, HOLD SCHEDULED LISPRO FOR NOW AND WILL REASSESS NEED WITH 2200 BS CHECK. ALSO INSTRUCTED BY DR SANCHEZ TO HOLD EVENING IV SOLU-MEDROL. READ BACK TO CONFIRM, PRIMARY RN JARETT MADE AWARE.
--- NOTE | 2023-01-08 21:00 | NUR ---
PATIENT REPOSITIONED IN BED, VSS, BLOOD SUGAR ON GLUCOMETER >600 LAB DRAW DONE TO VERIFY AND IT WAS AT 595. VIDEO NETWORK ENGINEER CALLED MD AND ORDERS GIVEN FOR INSULIN. AND THEN A RECHECK IN 1-2 HOURS. AP REG. LUNGS DIMINISHED WITH EXP WHEEZE. rt IN ROOM TO DO BREATHING TREATMENT AND PULMONARY CARE. PATIENT STATES HE IS FEELING BETTER. LOOSE PRODUCTIVE COUGH. IV INFILTRATED WHEN ANTIBIOTIC STARTED AND D/C'D INTACT AND NEW IV STARTED IN RIGHT HAND WITH 20 GAUGE WITHOUT DIFFICULTY. PATIENT DENIES PAIN, WANTED TO GO TO BED. LIGHTS OUT AND CALL LIGHT IN REACH.
--- NOTE | 2023-01-08 22:49 | NUR ---
PATIENT TRYING TO SLEEP INBETWEEN CARE, RECHECK OF BS = 359 AND MD NOTIFIED AND CONFIRMED USE OF SS INSULIN FOR COVERAGE. PATIENT GIVEN 11 UNITS. WILL RECHECK BLOOD SUGAR IN 1-2 HOURS. PATIENT RESTING, NO RESP DISTRESS NOTED, LIGHTS OUT AND CALL LIGHT IN REACH.
--- NOTE | 2023-01-08 23:31 | NUR ---
PATIENT RESTING WITH EYES CLOSED, APPEARS COMFORTABLE, NO NOTED RESP DISTRESS, RR=20, O2 SATS >92%. CALL LIGHT WITHIN REACH.
[2023-01-09] VITALS (24 sets, daily range): BP systolic 76–116; BP diastolic 44–67
--- NOTE | 2023-01-09 00:11 | NUR ---
0011: CPOX ALARMING AND PRIMARY RN JARETT IN ROOM TO ASSESS FOLLOWED BY THIS RN PER REQUEST OF PRIMARY RN FOLLOWED QUICKLY BY NAILING MACHINE OPERATOR AUTOMATIC JUNE WHO WAS AT RN STATION. pt CYANOTIC IN COLOR AND APPEARS TO BE STARING OFF, NONVERBAL AND NOT ANSWERING QUESTIONS. pt FOUND LAYING IN BED, INCONTINENT OF URINE WITH FEET HANGING OVER EDGE OF BED. SPO2 60% 0.5LNC, HR WNL. pt FEET BACK IN BED. SEE EVENTS BELOW FOR DETAILS REGARDING RAPID RESPONSE. 0012: RAPID RESPONSE CALLED BY HENRY CLARK. SPO2 REMAINING IN THE 60'S, RESPIRATIONS LABORED, pt BEING PLACED ON 15L NONREBREATHER. RT AMISH TO ROOM AND ASSISTING WITH OXYGEN THERAPY. 0013: BLOOD SUGAR CHECKED, RESULT OF 305. 0015: BP OF 116/53, MAP OF 66, HR 69. [id number]:DR SANCHEZ TO ROOM AND UPDATED ON EVENTS THUS FAR. 0020: SPO2 64%, HR 68. X-RAY PER DR SNOWDEN COMPLETED. ED MD WANTED X-RAY PRIOR TO BIPAP PLACEMENT. 0021:BIPAP PLACED, SETTINGS 16/4, 100% O2. pt BECOMING MORE ALERT AND CONVERSE WITH PRIMARY RN JARETT. 0024:BP RESULT OF 99/49, MAP OF 57, HR 70. 0025: CALLED BY HENRY PADRON AND TO COME TO SEE pt. 0027:SPO2 80%, HR 69. BIPAP SETTINGS UNCHANGED, RT MANAGING BIPAP. 0028:SPO2 86-88%, HR 69. pt STATES WHILE ON BIPAP: "WHAT'S ALL THE FUSS ABOUT". pt UPDATED ON EVENTS AND THERAPEUTIC COMMUNICATION PROVIDED BY STAFF. 0030:pt TRANSFERRED TO CCU FOR CLOSER OBSERVATION. PRIMARY JARETT TO GO WITH pt AND GIVE REPORT TO CCU RN. RAPID RESPONSE COMPLETED. INDIVIDUALS PRESENT FOR RAPID RESPONSE INCLUDE: PRIMARY RN JARETT, ANDERS RNJUNE NAILING MACHINE OPERATOR AUTOMATIC, RT AMISH AND RT CECILE QUESADA, HENRY CLARK, HENRY PADRON, DR SNOWDEN, DR SANCHEZ, IMAGING, LAB.
--- NOTE | 2023-01-09 00:26 | NUR ---
PT CALLED AND NOTIFIED OF PT CHANGE OF CONDITION BY RN. ON PHONE WITH AT THIS TIME.
--- NOTE | 2023-01-09 00:38 | NUR ---
RN CHECK ON PATIENT BECAUSE HIS CONTINOUS PULSE OX WAS ALARMING, PATIENT FOUND WITH FEET OVER SIDE OF BED, UNRESPONSIVE AND O2 SATS @ 60%. SEE NOTE FROM MANAGER RISK FOR DETAILS OF RAPID RESPONCE. MD CONTACT PATIENT'S AND SHE IS COMING IN. PATIENT TRANSFERRED TO CCU AND REPORT GIVEN TO CCU RN.
--- NOTE | 2023-01-09 00:45 | NUR ---
PATIENT ARRIVED TO THE UNIT VIA THE BED WITH RT AND CARNALLITE PLANT OPERATOR. PATIENT ON BIPAP AND IS AROUSABLE UPON TRANSFER. VS STABLE ON ARRIVAL. BIPAP SETTINGS PER RT AT BEDSIDE. TREATMENT GIVEN. PATIENT HAS POOR AIR MOVEMENT THROUGHOUT LUNG FEILDS. CONGESTED COUGH NOTED. IN ROOM.
--- NOTE | 2023-01-09 01:15 | NUR ---
PATIENT'S BEDDING CHANGED; PATIENT HAD BEEN INCONTINENT DURING HYPOXIC EVENT ON MS. PATIENT TOLERATED BED CHANGE. DISCUSSED PATIENT'S ELEVATED GLUCOSE WITH MD; WILL REEVALUATE IN THE AM. PATIENT'S BP IS TRENDING DOWN; MD AWARE. IVF BOLUS STARTED. IV SITE WNL X1. PATIENT'S IN ROOM, DISCUSSED PLANS WITH AND RT. ALL QUESTIONS ANSWERED.
--- NOTE | 2023-01-09 02:15 | NUR ---
IV FLUID BOLUS FINISHED; CONTINUE NS AT 125. PATIENT IS RESTING COMFORTABLY. VS STABLE. BP SOFT; WITH ADEQUATE MAP.
--- NOTE | 2023-01-09 04:30 | NUR ---
PATIENT IS ALERT AND ORIENTED. REPORTS HAVING A GOOD NIGHT SLEEP. IS AWARE OF EVENTS FROM LAST NIGHT BUT ONLY FROM HIS TELLING HIM. PATIENT LUNG SOUNDS ARE DIMINISHED THROUGHOUT. TOLERATING 2L NC. VS STABLE. PATIENT DENIED NEED TO VOID. AT BEDSIDE.
[2023-01-09 05:24] LABS: BASOPHILS 0.4 % (0-2); HEMATOCRIT 33.3 % (35.0-50.0); HEMOGLOBIN 10.8 g/dL (12.0-18.0); LYMPHOCYTES 3.3 % (24-44); MCH 29.7 (27-36); MCHC 32.5 g/dl (30-36); MCV 91.3 fl (81-99); MONOCYTES 8.2 % (0-12); NEUTROPHILS 88.1 % (39-80); PLATELET COUNT 182 K/uL (140-440); RBC 3.64 M/ul (4.3-5.7); RDW 15.9 (10.5-15.0)
[2023-01-09 05:45] LABS: ALBUMIN/GLOBULIN RATIO 1.03 (1.1-2.4); ANION GAP 12.8 (7-21); BILIRUBIN, TOTAL 0.2 ng/dL (0.2-1.0); BUN/CREATININE RATIO 36.2 (6.0-28.6); CALCIUM 8.4 mg/dL (8.5-10.1); CREATININE, SERUM 1.16 mg/dL (0.70-1.30); POTASSIUM 3.8 mmol/L (3.5-5.1); PROTEIN, TOTAL 5.9 g/dL (6.4-8.2)
--- NOTE | 2023-01-09 06:15 | NUR ---
PATIENT PROVIDED FRESH COFFEE. RESTING IN BED. DENIED ANY FURTHER NEEDS. CALL LIGHT IN REACH.
--- NOTE | 2023-01-09 06:49 | NUR ---
PATIENT TOLERATING 4L NC; TITRATED TO 2L NC PER RT.
--- NOTE | 2023-01-09 07:03 | NUR ---
AT BEDSIDE. STATES PT DOES NOT REMEMBER EVENTS OF LAST NIGHT. STATES SHE IS "OK." BUT GETS TEARY EASILY. REQUESTED PRAYER. PRAYED FOR PEACE AND COMFORT. GAVE THANKS FOR SIKH.
--- NOTE | 2023-01-09 07:30 | NUR ---
REPORT RECIEVED FROM MACHINE RIGGER RN. PATIENT RESTING IN BED WITH HIS AT THE BEDSIDE. PATIENT ON 2L NC. PATIENT DENIES SOB.
--- NOTE | 2023-01-09 08:00 | NUR ---
PATIENT UP TO CHAIR FOR BREAKFAST, 1PA FOR SAFETY. IN ROOM. ROOM TIDIED, URINE AND VITALS CHARTED. CALL LIGHT IN EASY REACH
--- NOTE | 2023-01-09 09:00 | NUR ---
PATIENT UP IN THE CHAIR EATING BREAKFAST. PATIENT MEDICATIONS ADMINISTERED. MD IN TO SEE PATIENT. REVIEWED PATIENT PLAN OF CARE. PATIENTS BREATH SOUNDS COARSE BUT NO CRACKLES NOTED. PATIENTS COUGH IN MUCH MORE WET AND LOOSE TODAY WITH MORE REQUESNT COUGHING. PATIENT ALSO REQUIRING 2L FROM 0.5L YESTERDAY. REVIEWED POTENTIAL FLUID OVERLOAD. NO EDEMA IN FEET AT THIS TIME. WILL CLOSELY MONITOR. PATIENT ON IV FLUIDS AT 125MLS/HR. PATIENT WILL DO CHEST PHYSIOTHERAPY TODAY WITH RT. PATIENT AND AGREEABLE TO PLAN OF CARE. CALL LIGHT IN REACH.
--- NOTE | 2023-01-09 10:00 | NUR ---
PATIENT WORKING WITH RT AND DOING CHEST PHYSIOTHERAPY UP IN THE CHAIR. PATIENT TOLERATING WELL.
--- NOTE | 2023-01-09 12:30 | NUR ---
MEDICATIONS ADMINISTERED. PATIENT UP EATING LUNCH. PATIENTS FAMILY IN AT THE BEDSIDE. PATIENT HAS CALL LIGHT IN REACH AND CALLS APPROPRIATELY.
--- NOTE | 2023-01-09 14:30 | NUR ---
PATIENT RESTING UP IN THE CHAIR. PATIENT WATCHING TV. STAFF IN TO CHECK ON PATIENT. PATIENTS UPDATED ON PLAN OF CARE. ALL QUESTIONS ANSWERED. NO OTHER NEEDS AT THIS TIME.
--- NOTE | 2023-01-09 14:42 | NUR ---
UR NOTE: [facility] MET FOR CHRONIC OBSTRUCTIVE PULMONARY DISEASE (ISC) INPATIENT GL DAY 1 01/08/23 MET GL DAY 2 01/09/23 VARIANCE GL DAY 3
--- NOTE | 2023-01-09 16:51 | NUR ---
PATIENT AWAKE IN RECLINER, VISITING WITH AND SON. VITALS AND GLUCOSE CHARTED. CALL LIGHT IN EASY REACH
--- NOTE | 2023-01-09 17:30 | NUR ---
PATIENT UP EATING DINNER. MEDICATIONS ADMINISTERED. PATIENT FAMILY STEPPED OUT AT THIS TIME. PATIENT HAS FRESH WATER. CALL LIGHT IN REACH.
--- NOTE | 2023-01-09 18:00 | NUR ---
patient up working with occupational therapy.
--- NOTE | 2023-01-09 19:15 | NUR ---
SHIFT REPORT RECEIVED. PATIENT RESTING IN RECLINER WATCHING TV. VS STABLE. CALL LIGHT IN REACH.
--- NOTE | 2023-01-09 21:00 | NUR ---
PATIENT PROVIDED SCHEUDLED MEDS. IV SITE LEAKING IN RIGHT HAND. NEW SITE ESTABLISHED IN RIGHT WRIST. IV ABX STARTED PER ORDER. PATIENT MOVED FROM RECLINER TO BED WITH FWW AND MINIMAL ASSIST. PATIENT TOLERATING ROOM AIR. LUNG SOUNDS ARE DIMINISHED WITH COARSENESS IN RUL. MODERATE PRODUCTIVE COUGH. PATIENT USING EMESIS BAG TO SPIT. PATIENT REQUEST COFFEE; DECAF PROVIDED. PATIENT IN BED WATCHING TV. CALL LIGHT IN REACH. VS STABLE.
--- NOTE | 2023-01-09 22:15 | NUR ---
LIGHTS DIMMED. PATIENT DENIED FURTHER NEEDS. CALL LIGHT IN REACH. VS STABLE.
[2023-01-10] VITALS: BP 98/56
--- NOTE | 2023-01-10 01:00 | NUR ---
PATIENT TOLERATING ROOM AIR. APPEARS COMFORTABLE IN BED. EYES CLOSED. VS STABLE. ALLOW PATIENT TO REST. CALL LIGHT IN REACH.
[2023-01-10 02:00] VITALS: BP 99/55
[2023-01-10 04:00] VITALS: BP 113/58
--- NOTE | 2023-01-10 04:15 | NUR ---
PATIENT WOKE EASILY TO VOICE. DENIED ANY NEEDS OR CONCERNS. LUNG SOUNDS ARE DIMINSIHED AND COARSE THROUGHOUT. PATIENT CONTINUES TO COUGH WITH OCCATIONAL THICK SPUTUM. VS STABLE Sp02 88-90% ON ROOM AIR. ENCOURAGED COUGH AND DEEP BREATHING.
[2023-01-10 06:00] VITALS: BP 114/63
--- NOTE | 2023-01-10 06:00 | NUR ---
PATIENT APPEARS COMOFRTABLE. CALL LIGHT IN REACH. VS STABLE. UPDATE GIVEN TO
--- NOTE | 2023-01-10 07:30 | NUR ---
REPORT RECEIVED. UP OOB TO CHAIR. ASSESSMENT DONE. TRANSFERS FAIR WITH ASSIST. HAS OCC COUGH.
--- NOTE | 2023-01-10 08:00 | NUR ---
DR. MELO HERE TO SEE PATIENT. PATIENT WILL BE DISCHARGED TO HOME TODAY. EATING BREAKFAST WHILE SITTING IN CHAIR.
[2023-01-10] MEDS ORDERED: AZITHROMYCIN500 MG PO (08:09)
[2023-01-10] MEDS ORDERED: PREDNISONE20 MG PO (08:09)
[2023-01-10] MEDS ORDERED: CEFDINIR300 MG PO (08:09)
--- NOTE | 2023-01-10 09:40 | NUR ---
DISCHARGE INSTRUCTIONS GIVEN TO PATIENT AND PATIENT WITH UNDERSTANDING. SL TO R FOREARM DC'D WITH CATH INTACT.
== END 2023-01-10 09:45 | disposition home or self-care (01) | DRG 193 ==
LOC: ED 13:08 → MS 19:49 → CCU 19:49 → MS 01-08 10:30 → CCU 01-09 00:30
PROVIDERS: Emergency Medicine; ADMIT Family Medicine; ATTEND Family Medicine
PROC: 5A09357 Assistance with Respiratory Ventilation, Less than 24 Consecutive Hours, Continuous Positive Airway Pressure (ICD-10-PCS; principal; 2023-01-07)
DX: J18.9 Pneumonia, unspecified organism (principal); J96.21 Acute and chronic respiratory failure with hypoxia; J44.1 Chronic obstructive pulmonary disease with (acute) exacerbation; R04.2 Hemoptysis; J93.9 Pneumothorax, unspecified; J44.0 Chronic obstructive pulmonary disease with (acute) lower respiratory infection; T17.590A Other foreign object in bronchus causing asphyxiation, initial encounter; Z66 Do not resuscitate; F41.9 Anxiety disorder, unspecified; I10 Essential (primary) hypertension; E11.65 Type 2 diabetes mellitus with hyperglycemia; E78.00 Pure hypercholesterolemia, unspecified; F17.210 Nicotine dependence, cigarettes, uncomplicated; G25.81 Restless legs syndrome; Z85.07 Personal history of malignant neoplasm of pancreas; Z98.890 Other specified postprocedural states; Z96.642 Presence of left artificial hip joint; Z88.1 Allergy status to other antibiotic agents; Z88.8 Allergy status to other drugs, medicaments and biological substances; Z79.4 Long term (current) use of insulin; Z79.84 Long term (current) use of oral hypoglycemic drugs; Z79.01 Long term (current) use of anticoagulants; Z79.51 Long term (current) use of inhaled steroids; Z79.82 Long term (current) use of aspirin; Z90.89 Acquired absence of other organs; Z79.899 Other long term (current) drug therapy; Z11.52 Encounter for screening for COVID-19
CPT/HCPCS: 36415; 71045; 71260; 80053; 82803; 82947; 83036; 83735; 84100; 84484; 85025; 87040; 87070; 87205; 87502; 93005; 93010; 94640; 94660; 94667; 94668; 94762; 97161; 97164; 97165; 97168; 97530; 99406; A9270; C9803; J0456; J0696; J1815; J2060; J2930; J7030; J7060; J7512; Q0177; Q9967; U0002

== ENCOUNTER 2023-09-04 12:11 | Inpatient (IN) | payer OTHER ==
[~2023-09-04] VITALS: Ht 175.3 cm; Wt 59.0 kg
[~2023-09-04 12:11] MED LIST changes: +ALBUTEROL2.5 MG/3 M INH; +AZITHROMYCIN500 MG PO; +BREZTRI AEROS10.7 GM INH; +CEFDINIR300 MG PO; +ECONAZOLE NITRA30 GM TOP; +FERRIC X-150150 MG PO; +IPRATROPIU0.2 MG/1 M INH; +JARDIANCE25 MG PO; +PIOGLITAZONE HC15 MG PO; +PRESERVISION A1 EAC6 PO; +TOBRAMYCIN300 MG/5 M INH; +VITAMIN B-121000 MCG PO; +VITAMIN C500 M1 PO; +VITAMIN D325 MCG PO; +ZITHROMAX500 MG PO; +ZYRTEC10 MG PO
--- OUTSIDE RECORDS SUMMARY | 2023-09-04 12:12 | XMS ---
PreManage Notification: ROSIE JANE Security Composition Floor Layer Events No recent Security Events currently on file CRITERIA MET - [employer] [facility] Internal Medicine: Pulmonary Disease Current PHONE: Unknown Sonali has no Care Guidelines for this patient. ELarissa VISIT COUNT (12 MO.) 5 [facility] TOTAL 5 NOTE: Visits indicate total known visits. ED/UCC VISIT TRACKING (12 MO.) 09/04/2023 12:11 [facility] [place] TYPE: Emergency COMPLAINT: - SHORTNESS OF BREATH 07/14/2023 08:41 [facility] [place] TYPE: Emergency COMPLAINT: - L TOE WOUND DIAGNOSES: - Allergy status to other antibiotic agents - Allergy status to other drugs, medicaments and biological substances - Blister (nonthermal), left lesser toe(s), initial encounter - Chronic obstructive pulmonary disease, unspecified - Contusion of left great toe without damage to nail, initial encounter - Essential (primary) hypertension - Exposure to other specified factors, initial encounter - intermediate accountant (current) use of insulin - Nicotine dependence, unspecified, uncomplicated - Other nursing home (current) drug therapy - Type 2 diabetes mellitus without complications 01/07/2023 13:09 [facility] [place] TYPE: Emergency COMPLAINT: - SOB, COUGHING BLOOD 11/05/2022 19:10 [facility] [place] TYPE: Emergency COMPLAINT: - WEAKNESS DIAGNOSES: - Allergy status to other antibiotic agents - Allergy status to other drugs, medicaments and biological substances - Chronic obstructive pulmonary disease, unspecified - Contact with and (suspected) exposure to COVID-19 - Essential (primary) hypertension - MCFP (current) use of aspirin - intermediate accountant (current) use of insulin - intermediate accountant (current) use of oral hypoglycemic drugs - Nicotine dependence, unspecified, uncomplicated - Other nursing home (current) drug therapy - Spinal stenosis, lumbar region without neurogenic claudication - Type 2 diabetes mellitus without complications - Weakness 10/21/2022 12:25 [facility] [place] TYPE: Emergency COMPLAINT: - WEAKNESS DIAGNOSES: - Allergy status to other antibiotic agents - Allergy status to other drugs, medicaments and biological substances - Chronic obstructive pulmonary disease, unspecified - Essential (primary) hypertension - Localized edema - intermediate accountant (current) use of insulin - MCFP (current) use of systemic steroids - Nicotine dependence, unspecified, uncomplicated - Other nursing home (current) drug therapy - Pure hypercholesterolemia, unspecified - Type 2 diabetes mellitus without complications - Weakness INPATIENT VISIT TRACKING (12 MO.) [facility] DIAGNOSES: - Occlusion and stenosis of left carotid artery - Other acute postprocedural pain 01/28/2023 23:49 [facility] [place] TYPE: Observation COMPLAINT: - COPD EXACERBATION DIAGNOSES: - Allergy status to other antibiotic agents - Allergy status to other drugs, medicaments and biological substances - Altered mental status, unspecified - Chronic obstructive pulmonary disease with (acute) exacerbation - Encounter for screening for COVID-19 - Essential (primary) hypertension - Gout, unspecified - Hyperlipidemia, unspecified - intermediate accountant (current) use of antithrombotics/antiplatelets - MCFP (current) use of aspirin - MCFP (current) use of oral hypoglycemic drugs - Nicotine dependence, cigarettes, uncomplicated - Restless legs syndrome - Type 2 diabetes mellitus without complications 01/07/2023 19:49 [facility] [place] TYPE: Critical Care COMPLAINT: - ACUTE HYPOXIC RESPIRATORY FAILURE DIAGNOSES: - Acquired absence of other organs - Acute and chronic respiratory failure with hypoxia - Allergy status to other antibiotic agents - Allergy status to other drugs, medicaments and biological substances - Anxiety disorder, unspecified - Chronic obstructive pulmonary disease with (acute) exacerbation - Chronic obstructive pulmonary disease with (acute) lower respiratory infection - Do not resuscitate - Encounter for screening for COVID-19 - Essential (primary) hypertension - Hemoptysis - MCFP (current) use of anticoagulants - intermediate accountant (current) use of aspirin - intermediate accountant (current) use of inhaled steroids - intermediate accountant (current) use of insulin - intermediate accountant (current) use of oral hypoglycemic drugs - Nicotine dependence, cigarettes, uncomplicated - Other foreign object in bronchus causing asphyxiation, initial encounter - Other intermediate accountant (current) drug therapy - Other specified postprocedural states - Personal history of malignant neoplasm of pancreas - Pneumonia, unspecified organism - Pneumothorax, unspecified - Presence of left artificial hip joint - Pure hypercholesterolemia, unspecified - Restless legs syndrome - Type 2 diabetes mellitus with hyperglycemia - Type 2 diabetes mellitus without complications [email or web address]
[2023-09-04] MEDS ORDERED: ALBUTEROL/IPRATROPIUM 3 ML NEB INH PRN (12:45)
[2023-09-04 13:26] LABS: BASOPHILS 0.6 % (0-2); EOSINOPHILS 3.1 % (0-6); HEMATOCRIT 40.1 % (35.0-50.0); MCH 29.6 (27-36); MCHC 32.3 g/dl (30-36); MCV 91.7 fl (81-99); MONOCYTES 11.2 % (0-12); NEUTROPHILS 74.1 % (39-80); PLATELET COUNT 176 K/uL (140-440); RBC 4.37 M/ul (4.3-5.7); RDW 17.1 (10.5-15.0)
[2023-09-04] MEDS ORDERED: methylPREDNISolone SOD SUCC 125 MG/2 ML VIAL IV ONE (13:30)
[2023-09-04 13:51] LABS: ALBUMIN 3.4 g/dL (3.4-5.0); ALBUMIN/GLOBULIN RATIO 0.87 (1.1-2.4); BILIRUBIN, TOTAL 0.4 ng/dL (0.2-1.0); BUN/CREATININE RATIO 17.39 (6.0-28.6); CALCIUM 8.6 mg/dL (8.5-10.1); CREATININE, SERUM 0.92 mg/dL (0.70-1.30); MAGNESIUM 2.2 mg/dL (1.8-2.4); PROTEIN, TOTAL 7.3 g/dL (6.4-8.2)
[2023-09-04] MEDS ORDERED: GABAPENTIN 300 MG CAP PO ONE (14:30)
[2023-09-04] MEDS ORDERED: ROPINIROLE HCL 1 MG TAB PO ONE (14:30)
[2023-09-04] MEDS ORDERED: ALBUTEROL/IPRATROPIUM 3 ML NEB INH ONE (17:30)
[2023-09-04] MEDS ORDERED: ALBUTEROL SULFATE 0.083% 3 ML VIAL INH ONE (18:00)
[2023-09-04] MEDS ORDERED: AZITHROMYCIN 250 MG TAB PO ONE (18:00)
[2023-09-04] MEDS ORDERED: CEFTRIAXONE/SODIUM CHLORIDE 1 GM/100 ML PIGGYBACK IV ONE ×3 (18:00→21:30)
[2023-09-04] MEDS ORDERED: ACETAMINOPHEN 325 MG TAB PO PRN (18:45)
[2023-09-04] MEDS ORDERED: IBLOOD GLUCOSE TEST STRIP 1 EA TEST XX PRN (18:45)
[2023-09-04] MEDS ORDERED: ondansetron HCL 4 MG/2 ML VIAL IV PRN (18:45)
[2023-09-04] MEDS ORDERED: GLUCAGON,HUMAN RECOMBINANT 1 MG/ML VIAL SUB-Q PRN (18:45)
[2023-09-04] MEDS ORDERED: DEXTROSE 50% 50 ML SYR IV PRN ×2 (18:45)
[2023-09-04] MEDS ORDERED: DEXTROSE 5% 1,000 ML IV PRN (18:45)
--- NOTE | 2023-09-04 19:40 | NUR ---
REPORT RECEIVED OVER PHONE. PATIENT ARRIVED TO UNIT VIA STRETCHER. PATIENT ABLE TO TRANSFER SELF TO BED WITH 1 PA STAND BY ASSIST. NOTED SOB WITH ACTIVITY. AUDIABLE WHEEZING NOTED. WET PRODUCTIVE COUGH NOTED. SECOND RN SKIN CHECK COMPLETED. MILD REDNESS NOTED TO COCCXY AREA ON THAT IS BLANCHABLE. BRUISE NOTED TO RIGHT ANTERIOR HOLCOMB AND SKIN TEAR LIKE ABRASION NOTED TO LEFT ANTERIOR HOLCOMB. VSS. NO FURTHER NEEDS AT THIS TIME.
[2023-09-04 19:46] VITALS: BP 140/66
--- NOTE | 2023-09-04 20:00 | NUR ---
IV ABX STARTED, PATIENT REQUESTING FOOD. SANDWHICH BOX GIVEN. HS BLOOD SUGAR TAKEN AND MEDICATIONS GIVEN. NO FURTHER NEEDS AT THIS TIME. CALL LIGHT WITHIN REACH.
--- NOTE | 2023-09-04 20:17 | NUR ---
APPLICATION SUPPORT ANALYST CHECK PT BLOOD SUGAR. BLOOD SUGAR WAS 231. RN NOTIFIED. PT STATES NO FURTHER NEEDS AT THIS TIME. CALL LIGHT WITHIN REACH.
--- NOTE | 2023-09-04 20:28 | NUR ---
HS MEDICATIONS ADMINISTERED. PATIENT DENIES ANY NEEDS AT THIS TIME CALL LIGHT WITHIN REACH.
[2023-09-04] MEDS ORDERED: IBLOOD GLUCOSE TEST STRIP 1 EA TEST VI SCH (21:00)
[2023-09-04] MEDS ORDERED: INSULIN GLARGINE-YFGN 100 UNIT/ML ML SUB-Q SCH (21:00)
[2023-09-04] MEDS ORDERED: ROPINIROLE HCL 1 MG TAB PO SCH (21:00)
[2023-09-04] MEDS ORDERED: INSULIN LISPRO 100 UNIT/ML ML SUB-Q SCH (21:00)
[2023-09-04] MEDS ORDERED: MELATONIN 3 MG TAB PO PRN (21:00)
--- NOTE | 2023-09-04 22:47 | NUR ---
ASSESSMENT COMPLETED. PATIENT HAS NO C/O PAIN AT THIS TIME. REPORTS SLIGHT SOB WHILE AT REST. LUNGS CORASE WITH CRACKLES IN BILATERAL LOWER LOBES AND WHEEZING NOTED IN UPPER BILATERAL LOBES. OXYGEN SATURATION REMAINS WNL ON ROOM AIR. DISCUSSED PATIENTS RESPIRATORY STATUS WITH RT. NO FURTHER NEEDS AT THIS TIME. CALL LIGHT WITHIN REACH.
--- NOTE | 2023-09-04 23:09 | NUR ---
BED ALARM ANSWERED. PT SITTING ON EDGE OF BED NEEDED TO USE URINAL. FRACTIONATION PLANT SUPERVISOR SBA WHILE PT USED URINAL. OUTPUT NOTED AND URINAL EMPTIED. PT STATES NO FURTHER NEEDS AT THIS TIME. PT BACK IN BED WITH CALL LIGHT IN REACH. BED ALARMS BACK ON.
[2023-09-05 00:31] LABS: INFLUENZA B NAA NEGATIVE (NEGATIVE); RESPIRATORY SYNCYTIAL VIR NAA NEGATIVE (NEGATIVE)
--- NOTE | 2023-09-05 01:10 | NUR ---
PATIENT RESTING IN BED WITH EYES CLOSED. RESPIRATIONS EVEN AND UNLABORED. CALL LIGHT WITHIN REACH.
[2023-09-05 03:06] VITALS: BP 119/70
[2023-09-05 03:07] VITALS: BP 119/70
--- NOTE | 2023-09-05 03:09 | NUR ---
VSS. PATIENT DENIES ANY PAIN OR DISCOMFORT. DENIES ANY SOB AT THIS TIME. LUNG SOUND CORASE INSPRIATORY WHEEZING AND EXPRITORY WHEEZING NOTED THROUGHOUT. OXYGEN SATURATING WNL ON ROOM AIR. NO FURTHER NEEDS AT THIS TIME CALL LIGHT WITHIN REACH.
--- NOTE | 2023-09-05 03:41 | NUR ---
BED ALARM ANSWERED. PT SITTING ON EDGE OF BED. PT STATED HE NEEDED TO USE THE URINAL. DETECTIVE YOUTH BUREAU SBA. PT BACK IN BED. URINAL EMPTIED AND OUTPUT NOTED. BED ALARM BACK ON. PT STATES NO FURTHER NEEDS AT THIS TIME. CALL LIGHT PLACED WITHIN REACH.
[2023-09-05 05:26] LABS: BASOPHILS 0.4 % (0-2); LYMPHOCYTES 11.1 % (24-44); MCH 29.5 (27-36); MCHC 32.3 g/dl (30-36); MCV 91.2 fl (81-99); MONOCYTES 2.3 % (0-12); NEUTROPHILS 86.2 % (39-80); PLATELET COUNT 179 K/uL (140-440); RBC 4.06 M/ul (4.3-5.7); RDW 16.9 (10.5-15.0)
[2023-09-05 05:44] LABS: ALBUMIN/GLOBULIN RATIO 0.83 (1.1-2.4); ANION GAP 12.6 (7-21); BILIRUBIN, TOTAL 0.3 ng/dL (0.2-1.0); CALCIUM 8.5 mg/dL (8.5-10.1); CREATININE, SERUM 1.05 mg/dL (0.70-1.30); MAGNESIUM 2.4 mg/dL (1.8-2.4); POTASSIUM 4.6 mmol/L (3.5-5.1); PROTEIN, TOTAL 6.6 g/dL (6.4-8.2)
[2023-09-05 05:45] VITALS: BP 127/65
[2023-09-05 05:47] VITALS: BP 127/65
--- NOTE | 2023-09-05 05:49 | NUR ---
PATIENT RRESTING IN BED. VSS. NOTED WET PRODUCTIVE COUGH. AUDIABLE WHEEZING NOTED. DENIES ANY SOB AT THIS TIME. DENIES ANY NEEDS AT THIS TIME. CALL LIGHT WITHIN REACH BED ALARM ON.
--- NOTE | 2023-09-05 07:26 | NUR ---
PT AWAKE WATCHING TV WITH CALL LIGHT WITHIN REACH. NO REQUESTS AT THIS TIME.
--- NOTE | 2023-09-05 07:46 | NUR ---
Board has been updated and call light has been placed within reach. Water has been filled and BG has been checked
[2023-09-05] MEDS ORDERED: BUDESONIDE 0.5 MG/2 ML VIAL INH SCH (08:00)
[2023-09-05] MEDS ORDERED: ALBUTEROL/IPRATROPIUM 3 ML NEB INH SCH (08:00)
[2023-09-05] MEDS ORDERED: predniSONE 20 MG TAB PO SCH (09:00)
[2023-09-05] MEDS ORDERED: ENOXAPARIN SODIUM 40 MG/0.4 ML SYR SUB-Q SCH (09:00)
[2023-09-05 09:05] VITALS: BP 125/62
[2023-09-05] MEDS ORDERED: PHARMACY RENAL DOSE ADJUSTMENT 1 DOSE MISC PO SCH (12:00)
--- NOTE | 2023-09-05 12:01 | NUR ---
DISCUSSED INSULIN FAST ACTING VS BASAL, IMPORTANCE OF KEEPING BLOOD GLUCOSE IN CONTROL, AND HOW MEDICATIONS CAN INFLUENCE IT.
[2023-09-05] MEDS ORDERED: PREDNISONE20 MG PO (12:18)
[2023-09-05] MEDS ORDERED: ZITHROMAX250 MG PO (12:20)
[2023-09-05] MEDS ORDERED: CEFDINIR300 MG PO (12:21)
--- NOTE | 2023-09-05 12:51 | NUR ---
PT RESTING IN BED, NOTIFIED OF DC ORDER AND PLAN FOR RT TO DO INSTRUCTION FIRST. CALL LIGHT WITHIN REACH.
[2023-09-05 13:13] VITALS: BP 140/76
--- NOTE | 2023-09-05 13:42 | NUR ---
PT AMBULATED TO RESTROOM, TOLERATED WELL.
[2023-09-05] MEDS ORDERED: CEFTRIAXONE/SODIUM CHLORIDE 2 GM/100 ML PIGGYBACK IV SCH (18:00)
[2023-09-05] MEDS ORDERED: AZITHROMYCIN 500 MG in DEXTROSE 5% 250 ML IV SCH (18:00)
--- NOTE | 2023-09-05 22:14 | EKG ---
[facility] [address] [place] [address] Signed Sinus rhythm with occasional premature ventricular complexes Junctional ST depression, probably normal Borderline ECG When compared with ECG of 07-JAN-2023 13:08, premature ventricular complexes are now present T wave amplitude has decreased in Lateral leads Confirmed by Bertha Sanchez MD () on 09/05/2023 10:14:43 PM Electronically Signed By: BERTHA SANCHEZ MD 09/05/23 2214 PATIENT NAME: ROSIE JANE Electrocardiogram DATE OF : 43 PHYSICIAN: BERTHA SANCHEZ MD REPORT #: [id number] REPORT IS CONFIDENTIAL AND NOT TO BE RELEASED WITHOUT AUTHORIZATION
== END 2023-09-05 14:03 | disposition home or self-care (01) | DRG 193 ==
LOC: ED 12:11 → MS 18:47
PROVIDERS: Emergency Medicine; ADMIT Family Medicine; ATTEND Family Medicine
DX: J18.9 Pneumonia, unspecified organism (principal); J96.21 Acute and chronic respiratory failure with hypoxia; J44.1 Chronic obstructive pulmonary disease with (acute) exacerbation; J44.0 Chronic obstructive pulmonary disease with (acute) lower respiratory infection; E11.9 Type 2 diabetes mellitus without complications; Z66 Do not resuscitate; I10 Essential (primary) hypertension; F17.210 Nicotine dependence, cigarettes, uncomplicated; G25.81 Restless legs syndrome; E78.00 Pure hypercholesterolemia, unspecified; J45.909 Unspecified asthma, uncomplicated; Z85.07 Personal history of malignant neoplasm of pancreas; Z98.890 Other specified postprocedural states; Z90.89 Acquired absence of other organs; Z88.1 Allergy status to other antibiotic agents; Z88.8 Allergy status to other drugs, medicaments and biological substances; Z79.2 Long term (current) use of antibiotics; Z79.84 Long term (current) use of oral hypoglycemic drugs; Z79.899 Other long term (current) drug therapy; Z79.01 Long term (current) use of anticoagulants; Z79.4 Long term (current) use of insulin; Z79.51 Long term (current) use of inhaled steroids
CPT/HCPCS: 36415; 71045; 80053; 83735; 84100; 84484; 85025; 87502; 93005; 93010; 94640; 94760; 94761; A9270; J0696; J1650; J1815; J2919; J7512; U0002

== ENCOUNTER 2023-09-18 20:05 | Observation (INO) | payer OTHER ==
[~2023-09-18] VITALS: Ht 175.3 cm; Wt 61.0 kg
--- OUTSIDE RECORDS SUMMARY | 2023-09-18 20:06 | XMS ---
PreManage Notification: ROSIE JANE Security Asbestos Pipe Supervisor Events No recent Security Events currently on file CRITERIA MET - [facility] - 2 Visits in 30 Days [facility] Internal Medicine: Pulmonary Disease Current PHONE: Unknown Sonali has no Care Guidelines for this patient. E.Emely VISIT COUNT (12 MO.) 6 [facility] TOTAL 6 NOTE: Visits indicate total known visits. ED/UCC VISIT TRACKING (12 MO.) 09/18/2023 20:05 [facility] TYPE: Emergency COMPLAINT: - SHORTNESS OF BREATH 09/04/2023 12:11 [facility] [place] TYPE: Emergency [...] to other specified factors, initial encounter - skilled nursing (current) use of insulin - Nicotine dependence, unspecified, uncomplicated - Other half-way (current) drug therapy - Type 2 diabetes [...] to COVID-19 - Essential (primary) hypertension - long term acute care registered nurse (current) use of aspirin - long term acute care registered nurse (current) use of insulin - long term acute care registered nurse (current) use of oral hypoglycemic drugs - Nicotine dependence, unspecified, uncomplicated - Other longwall shearer operator (current) drug therapy - Spinal stenosis, lumbar region without neurogenic claudication - Type 2 diabetes mellitus without complications - Weakness 10/21/2022 12:25 [facility] [place] TYPE: Emergency COMPLAINT: - WEAKNESS DIAGNOSES: - Allergy status to other antibiotic agents - Allergy status to other drugs, medicaments and biological substances - Chronic obstructive pulmonary disease, unspecified - Essential (primary) hypertension - Localized edema - skilled nursing (current) use of insulin - long term acute care registered nurse (current) use of systemic steroids - Nicotine dependence, unspecified, uncomplicated - Other longwall shearer operator (current) drug therapy - Pure hypercholesterolemia, unspecified - Type 2 diabetes mellitus without complications - Weakness INPATIENT VISIT TRACKING (12 MO.) 09/04/2023 18:[address] [facility] [place] TYPE: Medical Surgical COMPLAINT: - ACUTE HYPOXIC RESPIRATORY FAILURE DIAGNOSES: - Acquired absence of other organs - Acquired absence of other organs - Acute and chronic respiratory failure with hypoxia - Acute and chronic respiratory failure with hypoxia - Acute respiratory failure with hypoxia - Allergy status to other antibiotic agents - Allergy status to other antibiotic agents - Allergy status to other drugs, medicaments and biological substances - Allergy status to other drugs, medicaments and biological substances - Chronic obstructive pulmonary disease with (acute) exacerbation - Chronic obstructive pulmonary disease with (acute) exacerbation - Chronic obstructive pulmonary disease with (acute) lower respiratory infection - Chronic obstructive pulmonary disease with (acute) lower respiratory infection - Do not resuscitate - Do not resuscitate - Essential (primary) hypertension - Essential (primary) hypertension - skilled nursing (current) use of antibiotics - long term acute care registered nurse (current) use of antibiotics - skilled nursing (current) use of anticoagulants - skilled nursing (current) use of anticoagulants - skilled nursing (current) use of inhaled steroids - long term acute care registered nurse (current) use of inhaled steroids - skilled nursing (current) use of insulin - skilled nursing (current) use of insulin - skilled nursing (current) use of oral hypoglycemic drugs - skilled nursing (current) use of oral hypoglycemic drugs - Nicotine dependence, cigarettes, uncomplicated - Nicotine dependence, cigarettes, uncomplicated - Other longwall shearer operator (current) drug therapy - Other half-way (current) drug therapy - Other specified postprocedural states - Other specified postprocedural states - Personal history of malignant neoplasm of pancreas - Personal history of malignant neoplasm of pancreas - Pneumonia, unspecified organism - Pneumonia, unspecified organism - Pure hypercholesterolemia, unspecified - Pure hypercholesterolemia, unspecified - Restless legs syndrome - Restless legs syndrome - Type 2 diabetes mellitus without complications - Type 2 diabetes mellitus without complications - Unspecified asthma, uncomplicated - Unspecified asthma, uncomplicated [facility]23 09[facility] DIAGNOSES: [...] - Gout, unspecified - Hyperlipidemia, unspecified - long term acute care registered nurse (current) use of antithrombotics/antiplatelets - long term acute care registered nurse (current) use of aspirin - skilled nursing (current) use of oral hypoglycemic drugs - [...] - Essential (primary) hypertension - Hemoptysis - skilled nursing (current) use of anticoagulants - long term acute care registered nurse (current) use of aspirin - skilled nursing (current) use of inhaled steroids - skilled nursing (current) use of insulin - long term acute care registered nurse (current) use of oral hypoglycemic drugs - Nicotine dependence, cigarettes, uncomplicated - Other foreign object in bronchus causing asphyxiation, initial encounter - Other longwall shearer operator (current) drug therapy - Other specified postprocedural states - Personal history of malignant neoplasm of pancreas - Pneumonia, unspecified organism - Pneumothorax, unspecified - Presence of left artificial hip joint - Pure hypercholesterolemia, unspecified - Restless legs syndrome - Type 2 diabetes mellitus with hyperglycemia - Type 2 diabetes mellitus without complications [email or web address]
[2023-09-18 20:14] LABS: PH, VENOUS 7.397 (7.31-7.41)
[2023-09-18 20:15] LABS: BASOPHILS 0.5 % (0-2); EOSINOPHILS 4.9 % (0-6); HEMATOCRIT 39.3 % (35.0-50.0); HEMOGLOBIN 12.5 g/dL (12.0-18.0); LYMPHOCYTES 7.7 % (24-44); MCH 29.4 (27-36); MCHC 31.7 g/dl (30-36); MCV 92.6 fl (81-99); MONOCYTES 9.9 % (0-12); PLATELET COUNT 126 K/uL (140-440); RBC 4.24 M/ul (4.3-5.7); RDW 17.1 (10.5-15.0)
[2023-09-18] MEDS ORDERED: ALBUTEROL/IPRATROPIUM 3 ML NEB INH ONE (20:15)
[2023-09-18 20:36] LABS: ALBUMIN/GLOBULIN RATIO 0.86 (1.1-2.4); BILIRUBIN, TOTAL 0.4 ng/dL (0.2-1.0); BUN/CREATININE RATIO 15.74 (6.0-28.6); CREATININE, SERUM 1.27 mg/dL (0.70-1.30); PROTEIN, TOTAL 6.5 g/dL (6.4-8.2)
[2023-09-18] MEDS ORDERED: AZITHROMYCIN/DEXTROSE 500 MG/250 ML BAG IV ONE (22:30)
[2023-09-18 23:12] VITALS: BP 131/69
[2023-09-18] MEDS ORDERED: ALBUTEROL SULFATE 0.083% 3 ML VIAL INH PRN (23:15)
--- NOTE | 2023-09-18 23:38 | NUR ---
PATIENT TO THE FLOOR VIA STRETCHER BY MIGRATION AGENT. PATIENT TRANSFERRED INDEPENDENTLY FROM STRETCHER TO BED. IV FLUSHED WNL. ASSESSMENT COMPLETE. SCATTERED BRUISES NOTED AND RED JOHAN ON MIDDLE OF BACK. BILAT LUNG TODD DIMINISHED THROUGHOUT WITH EXP WHEEZES IN RLL. PATIENT DENIES NEEDS AT THIS TIME. PATIENT EDUCATED TO ROOM AND CALL LIGHT. CALL LIGHT IN REACH.
[2023-09-18] MEDS ORDERED: PRAVASTATIN SOD 20 MG TAB PO SCH (23:40)
--- NOTE | 2023-09-18 23:40 | NUR ---
in to provd. pt a cup of coffee, emptied urinal, no further needs
[2023-09-18] MEDS ORDERED: ROPINIROLE HCL 1 MG TAB PO SCH (23:41)
[2023-09-18] MEDS ORDERED: GABAPENTIN 300 MG CAP PO PRN (23:45)
[2023-09-19] MEDS ORDERED: ALBUTEROL/IPRATROPIUM 3 ML NEB INH SCH
--- NOTE | 2023-09-19 00:05 | NUR ---
PATIENT RESTING IN BED. SCHEDULED MEDICATIONS ADMINISTERED. FRESH WATER PROVIDED. MENU PROVIDED. PATIENT DENIES FURTHER NEEDS. BED ALARM ON FOR SAFETY. CALL LIGHT IN REACH.
--- NOTE | 2023-09-19 00:14 | NUR ---
DECREASED O2 TO 1 LPM.
--- NOTE | 2023-09-19 01:30 | NUR ---
CALL LIGHT ANSWERED. PATIENT UP AT BEDSIDE TO USE URINAL INDEPENDENTLY. PATIENT BACK TO BED. BED ALARM ON FOR SAFETY. CALL LIGHT IN REACH.
[2023-09-19 02:48] VITALS: BP 131/69
--- NOTE | 2023-09-19 02:50 | NUR ---
IN TO ASSIST PT WITH URINAL, PT SBA AT EOB TO VOID, VS CHECKED, PT PROVIDED CUP OF COFFEE AND ICE WATER
[2023-09-19 03:00] VITALS: BP 134/73
--- NOTE | 2023-09-19 04:27 | NUR ---
CALL LIGHT ANSWERED. PATIENT UP AT BEDSIDE TO VOID IN URINAL. ASSESSMENT COMPLETE. PATIENT DENIES SOB. LLL HAS EXP AND INSPIRATORY WHEEZES NOTED. RLL DIMINISHED. RUL CLEAR. STEPHANIA DIMINISHED. PATIENT HAS NO FURTHER NEEDS. CALL LIGHT IN REACH.
[2023-09-19 05:24] VITALS: BP 133/78
[2023-09-19 05:38] LABS: BASOPHILS 0.1 % (0-2); EOSINOPHILS 0.1 % (0-6); HEMATOCRIT 39.2 % (35.0-50.0); HEMOGLOBIN 12.7 g/dL (12.0-18.0); LYMPHOCYTES 3.7 % (24-44); MCH 29.7 (27-36); MCHC 32.5 g/dl (30-36); MCV 91.6 fl (81-99); MONOCYTES 0.9 % (0-12); NEUTROPHILS 95.2 % (39-80); PLATELET COUNT 123 K/uL (140-440); RBC 4.28 M/ul (4.3-5.7)
[2023-09-19 06:05] LABS: ALBUMIN 2.9 g/dL (3.4-5.0); ALBUMIN/GLOBULIN RATIO 0.78 (1.1-2.4); ANION GAP 15.9 (7-21); BILIRUBIN, TOTAL 0.5 ng/dL (0.2-1.0); BUN/CREATININE RATIO 20.61 (6.0-28.6); CALCIUM 8.1 mg/dL (8.5-10.1); CREATININE, SERUM 1.31 mg/dL (0.70-1.30); MAGNESIUM 2.4 mg/dL (1.8-2.4); POTASSIUM 3.9 mmol/L (3.5-5.1); PROTEIN, TOTAL 6.6 g/dL (6.4-8.2)
--- NOTE | 2023-09-19 06:58 | NUR ---
Pt report received from HENRY Jovel. Pt is awake, resting in bed, side rails up x2, call light in reach. Pt requested paper and pen, which was provided.
[2023-09-19] MEDS ORDERED: BUDESONIDE 0.5 MG/2 ML VIAL INH SCH (08:00)
--- NOTE | 2023-09-19 08:02 | NUR ---
IS ANALYST ASSISTED PATIENT IN GIVING HIM THE URINAL, PATIENT WAS THEN ABLE TO USE URINAL PROPERLY. PAITENT VOIDED URINE AND IS ANALYST RECORDED PATIENTS OUTPUT ON CHART IN ROOM. CALL LIGHT WITHIN REACH, NO FURTHER NEEDS AT THIS TIME.
[2023-09-19] MEDS ORDERED: CLOPIDOGREL BISULFATE 75 MG TAB PO SCH (09:00)
[2023-09-19 09:35] VITALS: BP 144/73
--- NOTE | 2023-09-19 09:37 | NUR ---
PATIENT SITTING ON SIDE OF BED. PT WALK SBA TO BR AND BACK TO BED. VITALS AND I/O'S COMPLETED. PT HAS NO OTHER REQUESTS AT THIS TIME. CALL LIGHT WITHIN REACH.
--- NOTE | 2023-09-19 10:42 | NUR ---
ASSISTED PT WITH MOVING FROM HIS BED TO SITTING IN THE RECLINER. BRAKE COUPLER ROAD FREIGHT EMPTIED PT URINAL, GAVE PT A WARM BLANKET, AND REFILLED PT ICE WATER. NO FUIRTHER COMPLAINTS AND CALL LIGHT IS WITHIN REACH
[2023-09-19] MEDS ORDERED: DULOXETINE HCL30 MG PO (11:01)
[2023-09-19] MEDS ORDERED: DULOXETINE HCL60 MG PO (11:02)
[2023-09-19] MEDS ORDERED: PIOGLITAZONE HC30 MG PO (11:03)
[2023-09-19] MEDS ORDERED: PREDNISONE20 MG PO (11:21)
[2023-09-19] MEDS ORDERED: predniSONE 20 MG TAB PO ONE (11:30)
--- NOTE | 2023-09-19 23:29 | EKG ---
[facility] [address] [facility] [place] [address] Signed Sinus rhythm with occasional premature ventricular complexes Left axis deviation Abnormal ECG When compared with ECG of 04-SEP-2023 12:57, No significant change was found Confirmed by Bertha Sanchez MD () on 09/19/2023 11:28:59 PM Electronically Signed By: BERTHA SANCHEZ MD 09/19/23 2329 PATIENT NAME: ROSIE JANE Electrocardiogram DATE OF : 43 PHYSICIAN: BERTHA SANCHEZ MD REPORT #: [id number] REPORT IS CONFIDENTIAL AND NOT TO BE RELEASED WITHOUT AUTHORIZATION
== END 2023-09-19 12:00 | disposition home or self-care (01) ==
LOC: ED 20:05 → MS 20:06
PROVIDERS: Internal Medicine; ADMIT Family Medicine; ATTEND Family Medicine
DX: J96.21 Acute and chronic respiratory failure with hypoxia (principal); J44.1 Chronic obstructive pulmonary disease with (acute) exacerbation; I10 Essential (primary) hypertension; E11.9 Type 2 diabetes mellitus without complications; E78.5 Hyperlipidemia, unspecified; G25.81 Restless legs syndrome; Z88.1 Allergy status to other antibiotic agents; Z88.8 Allergy status to other drugs, medicaments and biological substances; Z79.82 Long term (current) use of aspirin; Z79.4 Long term (current) use of insulin; Z79.899 Other long term (current) drug therapy
CPT/HCPCS: 36415; 71045; 80053; 82803; 83735; 84100; 84484; 85025; 93005; 93010; 94640; 94760; 96374; 99285-25; G0378; J0456

== ENCOUNTER 2023-09-25 20:08 | Emergency (ER) | payer OTHER ==
[~2023-09-25] VITALS: Ht 175.3 cm; Wt 57.2 kg
[~2023-09-25 20:08] MED LIST changes: +DULOXETINE HCL30 MG PO; +DULOXETINE HCL60 MG PO; +PIOGLITAZONE HC30 MG PO
--- OUTSIDE RECORDS SUMMARY | 2023-09-25 20:09 | XMS ---
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 E.Emely VISIT COUNT (12 MO.) [address] [place] [address] TOTAL 7 NOTE: Visits indicate total known visits. ED/UCC VISIT TRACKING (12 MO.) 09/25/2023 20:08 [facility] [place] TYPE: Emergency COMPLAINT: - SOB 09/18/2023 20:[address] [facility] [place] TYPE: Emergency COMPLAINT: - SHORTNESS OF [...] to other specified factors, initial encounter - terminal press operator (current) use of insulin - Nicotine dependence, unspecified, uncomplicated - Other assisted (current) drug therapy - Type 2 diabetes [...] to COVID-19 - Essential (primary) hypertension - terminal press operator (current) use of aspirin - terminal press operator (current) use of insulin - terminal press operator (current) use of oral hypoglycemic drugs - Nicotine dependence, unspecified, uncomplicated - Other exterminator termite (current) drug therapy - Spinal stenosis, lumbar region without neurogenic claudication - Type 2 diabetes mellitus without complications - Weakness 10/21/2022 12:25 [facility] [place] TYPE: Emergency COMPLAINT: - WEAKNESS DIAGNOSES: - Allergy status to other antibiotic agents - Allergy status to other drugs, medicaments and biological substances - Chronic obstructive pulmonary disease, unspecified - Essential (primary) hypertension - Localized edema - jail (current) use of insulin - terminal press operator (current) use of systemic steroids - Nicotine dependence, unspecified, uncomplicated - Other exterminator termite (current) drug therapy - Pure hypercholesterolemia, unspecified - Type 2 diabetes mellitus without complications - Weakness INPATIENT VISIT TRACKING (12 MO.) 09/18/2023 20:06 [facility] [place] TYPE: Observation COMPLAINT: - COPD EXACERBATION DIAGNOSES: - Acute and chronic respiratory failure with hypoxia - Allergy status to other antibiotic agents - Allergy status to other drugs, medicaments and biological substances - Chronic obstructive pulmonary disease with (acute) exacerbation - Essential (primary) hypertension - Hyperlipidemia, unspecified - terminal press operator (current) use of aspirin - terminal press operator (current) use of insulin - Other exterminator termite (current) drug therapy - Restless legs syndrome - Type 2 diabetes mellitus without complications 09/04/2023 18:[address] [facility] [address] [facility] [place] [...] (primary) hypertension - Essential (primary) hypertension - terminal press operator (current) use of antibiotics - terminal press operator (current) use of antibiotics - terminal press operator (current) use of anticoagulants - jail (current) use of anticoagulants - terminal press operator (current) use of inhaled steroids - terminal press operator (current) use of inhaled steroids - jail (current) use of insulin - jail (current) use of insulin - terminal press operator (current) use of oral hypoglycemic drugs - jail (current) use of oral hypoglycemic drugs - Nicotine dependence, cigarettes, uncomplicated - Nicotine dependence, cigarettes, uncomplicated - Other assisted (current) drug therapy - Other exterminator termite (current) drug therapy - Other specified postprocedural [...] uncomplicated - Unspecified asthma, uncomplicated [facility] [place] [facility] DIAGNOSES: - Occlusion and [...] - Gout, unspecified - Hyperlipidemia, unspecified - terminal press operator (current) use of antithrombotics/antiplatelets - jail (current) use of aspirin - terminal press operator (current) use of oral hypoglycemic drugs - [...] - Essential (primary) hypertension - Hemoptysis - jail (current) use of anticoagulants - terminal press operator (current) use of aspirin - jail (current) use of inhaled steroids - terminal press operator (current) use of insulin - terminal press operator (current) use of oral hypoglycemic drugs - Nicotine dependence, cigarettes, uncomplicated - Other foreign object in bronchus causing asphyxiation, initial encounter - Other exterminator termite (current) drug therapy - Other specified postprocedural states - Personal history of malignant neoplasm of pancreas - Pneumonia, unspecified organism - Pneumothorax, unspecified - Presence of left artificial hip joint - Pure hypercholesterolemia, unspecified - Restless legs syndrome - Type 2 diabetes mellitus with hyperglycemia - Type 2 diabetes mellitus without complications [email or web address]
[2023-09-25] MEDS ORDERED: ACETAMINOPHEN 500 MG TAB PO ONE (20:30)
[2023-09-25] MEDS ORDERED: LACTATED RINGER'S 1,000 ML IV ONE (20:30)
[2023-09-25 20:41] LABS: BASOPHILS 0.4 % (0-2); EOSINOPHILS 5.7 % (0-6); HEMATOCRIT 40.8 % (35.0-50.0); HEMOGLOBIN 13.1 g/dL (12.0-18.0); LYMPHOCYTES 5.6 % (24-44); MCH 29.3 (27-36); MCV 91.7 fl (81-99); MONOCYTES 4.9 % (0-12); NEUTROPHILS 83.4 % (39-80); PLATELET COUNT 145 K/uL (140-440); RBC 4.45 M/ul (4.3-5.7); RDW 16.9 (10.5-15.0)
[2023-09-25 21:09] LABS: ALBUMIN 3.1 g/dL (3.4-5.0); ALBUMIN/GLOBULIN RATIO 0.94 (1.1-2.4); ANION GAP 14.1 (7-21); BILIRUBIN, TOTAL 0.4 ng/dL (0.2-1.0); BUN/CREATININE RATIO 29.82 (6.0-28.6); CALCIUM 8.1 mg/dL (8.5-10.1); CREATININE, SERUM 1.14 mg/dL (0.70-1.30); POTASSIUM 4.1 mmol/L (3.5-5.1); PROTEIN, TOTAL 6.4 g/dL (6.4-8.2); TSH, 3RD GENERATION 1.243 uIU/mL (0.358-3.740)
[2023-09-25 21:41] LABS: INFLUENZA B NAA NEGATIVE (NEGATIVE); RESPIRATORY SYNCYTIAL VIR NAA NEGATIVE (NEGATIVE)
[2023-09-25 22:16] LABS: BILIRUBIN, URINE NEGATIVE (negative); BLOOD/HGB, URINE NEGATIVE (Negative); KETONE, URINE NEGATIVE (Negative); LEUK ESTERASE, URINE NEGATIVE (negative); NITRITE, URINE NEGATIVE (negative); PH, URINE 5.5 (5-7)
[2023-09-26 00:45] VITALS: BP 138/92
--- NOTE | 2023-09-26 13:38 | EKG ---
[facility] [address] [facility] [place] [address] Signed Sinus rhythm with occasional premature ventricular complexes Left axis deviation Nonspecific ST abnormality Abnormal ECG When compared with ECG of 18-SEP-2023 20:17, No significant change was found Confirmed by Sunday Emery MD ([id number]) on 09/26/2023 1:38:11 PM Electronically Signed By: SUNDAY EMERY 09/26/23 1338 PATIENT NAME: ROSIE JANE Electrocardiogram DATE OF : 43 PHYSICIAN: SUNDAY EMERY REPORT #: [id number] REPORT IS CONFIDENTIAL AND NOT TO BE RELEASED WITHOUT AUTHORIZATION
== END 2023-09-26 00:46 | disposition home or self-care (01) ==
LOC: ED 20:08
PROVIDERS: Internal Medicine
DX: B34.9 Viral infection, unspecified (principal); I10 Essential (primary) hypertension; J44.9 Chronic obstructive pulmonary disease, unspecified; E11.9 Type 2 diabetes mellitus without complications; F17.200 Nicotine dependence, unspecified, uncomplicated; Z88.1 Allergy status to other antibiotic agents; Z88.8 Allergy status to other drugs, medicaments and biological substances; Z79.899 Other long term (current) drug therapy; Z79.84 Long term (current) use of oral hypoglycemic drugs; Z79.4 Long term (current) use of insulin; Z79.82 Long term (current) use of aspirin
CPT/HCPCS: 36415; 71045; 80053; 81003; 83880; 84443; 84484; 85025; 87502; 93005; 93010; A9270; J7121; U0002

== ENCOUNTER 2023-10-01 16:11 | Emergency (ER) | payer OTHER ==
[~2023-10-01] VITALS: Ht 175.3 cm; Wt 56.2 kg
--- OUTSIDE RECORDS SUMMARY | 2023-10-01 16:12 | XMS ---
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 E.Emely VISIT COUNT (12 MO.) [address] [place] [address] TOTAL 8 NOTE: Visits indicate total known visits. ED/UCC VISIT TRACKING (12 MO.) 10/01/2023 16:11 [facility] [place] TYPE: Emergency COMPLAINT: - WEAKNESS/TROUBLE BREATHING 09/25/2023 20:08 [facility] [place] TYPE: Emergency COMPLAINT: - SOB DIAGNOSES: - Allergy status to other antibiotic agents - Allergy status to other drugs, medicaments and biological substances - Chronic obstructive pulmonary disease, unspecified - Essential (primary) hypertension - assisted (current) use of aspirin - assisted (current) use of insulin - intermediate teacher (current) use of oral hypoglycemic drugs - Nicotine dependence, unspecified, uncomplicated - Other chcf (current) drug therapy - Type 2 diabetes mellitus without complications - Viral infection, unspecified - Weakness 09/18/2023 20:05 [facility] [place] TYPE: Emergency [...] to other specified factors, initial encounter - assisted (current) use of insulin - Nicotine dependence, unspecified, uncomplicated - Other superintendent container terminal (current) drug therapy - Type 2 diabetes [...] to COVID-19 - Essential (primary) hypertension - assisted (current) use of aspirin - intermediate teacher (current) use of insulin - intermediate teacher (current) use of oral hypoglycemic drugs - Nicotine dependence, unspecified, uncomplicated - Other superintendent container terminal (current) drug therapy - Spinal stenosis, lumbar region without neurogenic claudication - Type 2 diabetes mellitus without complications - Weakness 10/21/2022 12:25 [facility] [place] TYPE: Emergency COMPLAINT: - WEAKNESS DIAGNOSES: - Allergy status to other antibiotic agents - Allergy status to other drugs, medicaments and biological substances - Chronic obstructive pulmonary disease, unspecified - Essential (primary) hypertension - Localized edema - assisted (current) use of insulin - assisted (current) use of systemic steroids - Nicotine dependence, unspecified, uncomplicated - Other chcf (current) drug therapy - Pure hypercholesterolemia, unspecified [...] Essential (primary) hypertension - Hyperlipidemia, unspecified - intermediate teacher (current) use of aspirin - assisted (current) use of insulin - Other superintendent container terminal (current) drug therapy - Restless legs syndrome - Type 2 diabetes mellitus without complications 09/04/2023 18:47 [facility] [place] TYPE: Medical Surgical COMPLAINT: - ACUTE [...] (primary) hypertension - Essential (primary) hypertension - intermediate teacher (current) use of antibiotics - assisted (current) use of antibiotics - intermediate teacher (current) use of anticoagulants - intermediate teacher (current) use of anticoagulants - assisted (current) use of inhaled steroids - intermediate teacher (current) use of inhaled steroids - intermediate teacher (current) use of insulin - assisted (current) use of insulin - assisted (current) use of oral hypoglycemic drugs - intermediate teacher (current) use of oral hypoglycemic drugs - Nicotine dependence, cigarettes, uncomplicated - Nicotine dependence, cigarettes, uncomplicated - Other superintendent container terminal (current) drug therapy - Other superintendent container terminal (current) drug therapy - Other specified postprocedural [...] uncomplicated - Unspecified asthma, uncomplicated 08/04/2023 09:41 [facility] ([facility] TYPE: Intensive Care DIAGNOSES: - Occlusion and stenosis of left carotid artery - Other acute postprocedural pain 01/28/2023 23:49 [facility] [place] TYPE: Observation COMPLAINT: - COPD EXACERBATION DIAGNOSES: - Allergy status to other antibiotic agents - Allergy status to other drugs, medicaments and biological substances - Altered mental status, unspecified - Chronic obstructive pulmonary disease with (acute) exacerbation - Encounter for screening for COVID-19 - Essential (primary) hypertension - Gout, unspecified - Hyperlipidemia, unspecified - intermediate teacher (current) use of antithrombotics/antiplatelets - intermediate teacher (current) use of aspirin - assisted (current) use of oral hypoglycemic drugs - Nicotine dependence, cigarettes, uncomplicated - Restless legs syndrome - Type 2 diabetes mellitus without complications 01/07/2023 19:[address] [facility] [place] TYPE: Critical Care COMPLAINT: - ACUTE [...] - Essential (primary) hypertension - Hemoptysis - assisted (current) use of anticoagulants - assisted (current) use of aspirin - intermediate teacher (current) use of inhaled steroids - assisted (current) use of insulin - intermediate teacher (current) use of oral hypoglycemic drugs - Nicotine dependence, cigarettes, uncomplicated - Other foreign object in bronchus causing asphyxiation, initial encounter - Other superintendent container terminal (current) drug therapy - Other specified postprocedural states - Personal history of malignant neoplasm of pancreas - Pneumonia, unspecified organism - Pneumothorax, unspecified - Presence of left artificial hip joint - Pure hypercholesterolemia, unspecified - Restless legs syndrome - Type 2 diabetes mellitus with hyperglycemia - Type 2 diabetes mellitus without complications [email or web address]
[2023-10-01] MEDS ORDERED: MORPHINE SULFATE 4 MG/ML VIAL IV ONE (17:45)
[2023-10-01] MEDS ORDERED: BACTRIM 400-801 EACH PO (19:11)
[2023-10-01 19:28] VITALS: BP 130/63
== END 2023-10-01 19:28 | disposition home or self-care (01) ==
LOC: ED 16:11
DX: L02.31 Cutaneous abscess of buttock (principal); I10 Essential (primary) hypertension; E11.9 Type 2 diabetes mellitus without complications; E78.00 Pure hypercholesterolemia, unspecified; J44.89 Other specified chronic obstructive pulmonary disease; Z79.02 Long term (current) use of antithrombotics/antiplatelets; Z79.84 Long term (current) use of oral hypoglycemic drugs; Z79.51 Long term (current) use of inhaled steroids; Z79.82 Long term (current) use of aspirin; Z79.899 Other long term (current) drug therapy; Z88.1 Allergy status to other antibiotic agents; Z88.8 Allergy status to other drugs, medicaments and biological substances
CPT/HCPCS: 10060; 99282-25; J2270

== ENCOUNTER 2023-10-11 09:09 | Emergency (ER) | payer OTHER, MEDICARE ==
[~2023-10-11] VITALS: Ht 175.3 cm; Wt 54.3 kg
[~2023-10-11 09:09] MED LIST changes: +BACTRIM 400-801 EACH PO
--- OUTSIDE RECORDS SUMMARY | 2023-10-11 09:10 | XMS ---
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 Durga VISIT COUNT (12 MO.) [address] [place] [address] TOTAL 9 NOTE: Visits indicate total known visits. ED/UCC VISIT TRACKING (12 MO.) 10/11/2023 09:09 [facility] [place] TYPE: Emergency COMPLAINT: - WOUND CHECK 10/01/2023 16:11 [facility] [place] TYPE: Emergency COMPLAINT: - WEAKNESS/TROUBLE BREATHING DIAGNOSES: - Allergy status to other antibiotic agents - Allergy status to other drugs, medicaments and biological substances - Cutaneous abscess of buttock - Essential (primary) hypertension - group home (current) use of antithrombotics/antiplatelets - group home (current) use of aspirin - terminal manager (current) use of inhaled steroids - terminal manager (current) use of oral hypoglycemic drugs - Nicotine dependence, unspecified, uncomplicated - Other rat exterminator (current) drug therapy - Other specified chronic obstructive pulmonary disease - Pure hypercholesterolemia, unspecified - Type 2 diabetes mellitus without complications - Weakness 09/25/2023 20:08 [facility] [place] TYPE: Emergency COMPLAINT: - SOB DIAGNOSES: - Allergy status to other antibiotic agents - Allergy status to other drugs, medicaments and biological substances - Chronic obstructive pulmonary disease, unspecified - Essential (primary) hypertension - group home (current) use of aspirin - terminal manager (current) use of insulin - group home (current) use of oral hypoglycemic drugs - Nicotine dependence, unspecified, uncomplicated - Other alf (current) drug therapy - Type 2 diabetes [...] other specified factors, initial encounter - terminal manager (current) use of insulin - Nicotine dependence, unspecified, uncomplicated - Other alf (current) drug therapy - Type 2 diabetes [...] COVID-19 - Essential (primary) hypertension - terminal manager (current) use of aspirin - group home (current) use of insulin - group home (current) use of oral hypoglycemic drugs - Nicotine dependence, unspecified, uncomplicated - Other alf (current) drug therapy - Spinal stenosis, lumbar region without neurogenic claudication - Type 2 diabetes mellitus without complications - Weakness 10/21/2022 12:25 [facility] [place] TYPE: Emergency COMPLAINT: - WEAKNESS DIAGNOSES: - Allergy status to other antibiotic agents - Allergy status to other drugs, medicaments and biological substances - Chronic obstructive pulmonary disease, unspecified - Essential (primary) hypertension - Localized edema - terminal manager (current) use of insulin - group home (current) use of systemic steroids - Nicotine dependence, unspecified, uncomplicated - Other alf (current) drug therapy - Pure hypercholesterolemia, unspecified [...] Essential (primary) hypertension - Hyperlipidemia, unspecified - group home (current) use of aspirin - terminal manager (current) use of insulin - Other rat exterminator (current) drug therapy - Restless legs syndrome [...] (primary) hypertension - Essential (primary) hypertension - group home (current) use of antibiotics - group home (current) use of antibiotics - group home (current) use of anticoagulants - group home (current) use of anticoagulants - group home (current) use of inhaled steroids - terminal manager (current) use of inhaled steroids - group home (current) use of insulin - terminal manager (current) use of insulin - group home (current) use of oral hypoglycemic drugs - group home (current) use of oral hypoglycemic drugs - Nicotine dependence, cigarettes, uncomplicated - Nicotine dependence, cigarettes, uncomplicated - Other alf (current) drug therapy - Other alf (current) drug therapy - Other specified postprocedural [...] uncomplicated - Unspecified asthma, uncomplicated [facility]23 [facility] [facility] [address] Care [...] - Gout, unspecified - Hyperlipidemia, unspecified - group home (current) use of antithrombotics/antiplatelets - group home (current) use of aspirin - group home (current) use of oral hypoglycemic drugs - [...] - Essential (primary) hypertension - Hemoptysis - terminal manager (current) use of anticoagulants - group home (current) use of aspirin - terminal manager (current) use of inhaled steroids - group home (current) use of insulin - terminal manager (current) use of oral hypoglycemic drugs - Nicotine dependence, cigarettes, uncomplicated - Other foreign object in bronchus causing asphyxiation, initial encounter - Other alf (current) drug therapy - Other specified postprocedural states - Personal history of malignant neoplasm of pancreas - Pneumonia, unspecified organism - Pneumothorax, unspecified - Presence of left artificial hip joint - Pure hypercholesterolemia, unspecified - Restless legs syndrome - Type 2 diabetes mellitus with hyperglycemia - Type 2 diabetes mellitus without complications [email or web address]
[2023-10-11] MEDS ORDERED: CEPHALEXIN500 M1 PO (10:02)
[2023-10-11 10:06] VITALS: BP 128/113
== END 2023-10-11 10:06 | disposition home or self-care (01) ==
LOC: ED 09:09
DX: L02.31 Cutaneous abscess of buttock (principal); I10 Essential (primary) hypertension; J44.9 Chronic obstructive pulmonary disease, unspecified; E11.9 Type 2 diabetes mellitus without complications; F17.200 Nicotine dependence, unspecified, uncomplicated; Z88.1 Allergy status to other antibiotic agents; Z88.8 Allergy status to other drugs, medicaments and biological substances; Z79.84 Long term (current) use of oral hypoglycemic drugs; Z79.4 Long term (current) use of insulin; Z79.899 Other long term (current) drug therapy; Z79.82 Long term (current) use of aspirin
CPT/HCPCS: 99282

== ENCOUNTER 2023-11-19 04:10 | Emergency (ER) | payer OTHER, MEDICARE ==
[~2023-11-19] VITALS: Ht 175.3 cm; Wt 60.0 kg
[~2023-11-19 04:10] MED LIST changes: +CEPHALEXIN500 M1 PO
--- OUTSIDE RECORDS SUMMARY | 2023-11-19 04:17 | XMS ---
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 Durga VISIT COUNT (12 MO.) 8 [facility] TOTAL 8 NOTE: Visits indicate total known visits. ED/UCC VISIT TRACKING (12 MO.) 11/19/2023 04:11 [facility] [place] TYPE: Emergency COMPLAINT: - RT HAND INJURY 10/11/2023 09:09 [facility] [place] TYPE: Emergency COMPLAINT: - WOUND CHECK DIAGNOSES: - Allergy status to other antibiotic agents - Allergy status to other drugs, medicaments and biological substances - Chronic obstructive pulmonary disease, unspecified - Cutaneous abscess of buttock - Essential (primary) hypertension - jail (current) use of aspirin - jail (current) use of insulin - jail (current) use of oral hypoglycemic drugs - Nicotine dependence, unspecified, uncomplicated - Other assisted (current) drug therapy - Type 2 diabetes mellitus without complications 10/01/2023 16:11 [facility] [place] TYPE: Emergency COMPLAINT: - WEAKNESS/TROUBLE BREATHING DIAGNOSES: - Allergy status to other antibiotic agents - Allergy status to other drugs, medicaments and biological substances - Cutaneous abscess of buttock - Essential (primary) hypertension - jail (current) use of antithrombotics/antiplatelets - jail (current) use of aspirin - jail (current) use of inhaled steroids - jail (current) use of oral hypoglycemic drugs - Nicotine dependence, unspecified, uncomplicated - Other assistant terminal manager (current) drug therapy - Other specified chronic obstructive pulmonary disease - Pure hypercholesterolemia, unspecified - Type 2 diabetes mellitus without complications - Weakness 09/25/2023 20:08 [facility] [place] TYPE: Emergency COMPLAINT: - SOB DIAGNOSES: - Allergy status to other antibiotic agents - Allergy status to other drugs, medicaments and biological substances - Chronic obstructive pulmonary disease, unspecified - Essential (primary) hypertension - long term (current) use of aspirin - long term (current) use of insulin - jail (current) use of oral hypoglycemic [...] to other specified factors, initial encounter - long term (current) use of insulin - Nicotine dependence, unspecified, uncomplicated - Other assistant terminal manager (current) drug therapy - Type 2 diabetes mellitus without complications 01/07/2023 13:09 [facility] [place] TYPE: Emergency COMPLAINT: - SOB, COUGHING BLOOD INPATIENT VISIT TRACKING (12 MO.) 09/18/2023 20:06 [facility] [place] TYPE: Observation COMPLAINT: - COPD EXACERBATION DIAGNOSES: - Acute and chronic respiratory failure with hypoxia - Allergy status to other antibiotic agents - Allergy status to other drugs, medicaments and biological substances - Chronic obstructive pulmonary disease with (acute) exacerbation - Essential (primary) hypertension - Hyperlipidemia, unspecified - jail (current) use of aspirin - jail (current) use of insulin - Other assistant terminal manager (current) drug therapy - Restless legs syndrome [...] (primary) hypertension - Essential (primary) hypertension - long term (current) use of antibiotics - jail (current) use of antibiotics - long term (current) use of anticoagulants - jail (current) use of anticoagulants - long term (current) use of inhaled steroids - long term (current) use of inhaled steroids - long term (current) use of insulin - long term (current) use of insulin - jail (current) use of oral hypoglycemic drugs - long term (current) use of oral hypoglycemic drugs - Nicotine dependence, cigarettes, uncomplicated - Nicotine dependence, cigarettes, uncomplicated - Other assisted (current) drug therapy - Other assistant terminal manager (current) drug therapy - Other specified postprocedural [...] uncomplicated - Unspecified asthma, uncomplicated 08/04/2023 09:41 [facility] (Jelani Palomares) TYPE: Intensive Care DIAGNOSES: - Occlusion and stenosis of left carotid artery - Other acute postprocedural pain 01/28/2023 23:49 [facility] [place] TYPE: Observation COMPLAINT: - COPD EXACERBATION DIAGNOSES: - Allergy status to other antibiotic agents - Allergy status to other drugs, medicaments and biological substances - Altered mental status, unspecified - Chronic obstructive pulmonary disease with (acute) exacerbation - Encounter for screening for COVID-19 - Essential (primary) hypertension - Gout, unspecified - Hyperlipidemia, unspecified - jail (current) use of antithrombotics/antiplatelets - jail (current) use of aspirin - long term (current) use of oral [...] - jail (current) use of anticoagulants - jail (current) use of aspirin - long term (current) use of inhaled steroids - long term (current) use of insulin - long term (current) use of oral hypoglycemic drugs - Nicotine dependence, cigarettes, uncomplicated - Other foreign object in bronchus causing asphyxiation, initial encounter - Other assisted (current) drug therapy - Other specified postprocedural states - Personal history of malignant neoplasm of pancreas - Pneumonia, unspecified organism - Pneumothorax, unspecified - Presence of left artificial hip joint - Pure hypercholesterolemia, unspecified - Restless legs syndrome - Type 2 diabetes mellitus with hyperglycemia - Type 2 diabetes mellitus without complications [email or web address]
[2023-11-19] MEDS ORDERED: HYDROCODONE/ACETA 7.5/325 TAB PO ONE (04:30)
[2023-11-19] MEDS ORDERED: COLCHICINE 0.6 MG TAB PO ONE (04:45)
[2023-11-19 04:55] LABS: BASOPHILS 0.8 % (0-2); HEMATOCRIT 40.2 % (35.0-50.0); LYMPHOCYTES 9.6 % (24-44); MCH 29.7 (27-36); MCHC 32.3 g/dl (30-36); MCV 91.8 fl (81-99); MONOCYTES 9.2 % (0-12); NEUTROPHILS 74.4 % (39-80); PLATELET COUNT 159 K/uL (140-440); RBC 4.38 M/ul (4.3-5.7); RDW 17.1 (10.5-15.0)
[2023-11-19 05:09] LABS: ALBUMIN/GLOBULIN RATIO 0.86 (1.1-2.4); BILIRUBIN, TOTAL 0.4 ng/dL (0.2-1.0); BUN/CREATININE RATIO 13.55 (6.0-28.6); CALCIUM 8.8 mg/dL (8.5-10.1); CREATININE, SERUM 1.18 mg/dL (0.70-1.30); PROTEIN, TOTAL 6.5 g/dL (6.4-8.2)
[2023-11-19] MEDS ORDERED: PREDNISONE20 MG PO (05:18)
[2023-11-19] MEDS ORDERED: HYDROCODONE BIT/ACETAMINOPHEN 5/325 MG 1 TAB HOME.PACK PO ONE (05:30)
[2023-11-19] MEDS ORDERED: predniSONE 20 MG TAB PO ONE (05:30)
[2023-11-19 05:40] VITALS: BP 160/76
== END 2023-11-19 05:40 | disposition home or self-care (01) ==
LOC: ED 04:10
PROVIDERS: Internal Medicine
DX: M19.041 Primary osteoarthritis, right hand (principal); I10 Essential (primary) hypertension; E11.9 Type 2 diabetes mellitus without complications; E78.00 Pure hypercholesterolemia, unspecified; J44.89 Other specified chronic obstructive pulmonary disease; F17.200 Nicotine dependence, unspecified, uncomplicated; Z79.82 Long term (current) use of aspirin; Z79.84 Long term (current) use of oral hypoglycemic drugs; Z79.899 Other long term (current) drug therapy; Z79.51 Long term (current) use of inhaled steroids; Z88.1 Allergy status to other antibiotic agents; Z88.8 Allergy status to other drugs, medicaments and biological substances
CPT/HCPCS: 36415; 73130; 80053; 84550; 85025; 86140; 99283; A9270; J7512

== ENCOUNTER 2024-01-24 16:27 | Emergency (ER) | payer OTHER, MEDICARE ==
[~2024-01-24] VITALS: Ht 175.3 cm; Wt 56.8 kg
[~2024-01-24 16:27] MED LIST changes: +AZITHROMYCIN250 MG PO; +CYCLOBENZAPRINE10 MG PO; +LIDODERM1 EACH TOP
--- OUTSIDE RECORDS SUMMARY | 2024-01-24 16:29 | XMS ---
PreManage Notification: ROSIE JANE Security Work Environment Safety Inspector Events No recent Security Events currently on file CRITERIA MET - 6 ED Visits in 6 Months CARE PROVIDERS [facility] Internal Medicine: Pulmonary Disease Current PHONE: Unknown Sonali has no Care Guidelines for this patient. Durga VISIT COUNT (12 MO.) 9 SUSAN Wiley TOTAL 9 NOTE: Visits indicate total known visits. ED/UCC VISIT TRACKING (12 MO.) 01/24/2024 16:28 [facility] [place] TYPE: Emergency COMPLAINT: - SHORTNESS OF BREATH 12/09/2023 15:23 [facility] [place] TYPE: Emergency COMPLAINT: - HIP PAIN DIAGNOSES: - Allergy status to other antibiotic agents - Allergy status to other drugs, medicaments and biological substances - Chronic obstructive pulmonary disease, unspecified - Essential (primary) hypertension - termite control representative (current) use of anticoagulants - termite control representative (current) use of aspirin - termite control representative (current) use of inhaled steroids - termite control representative (current) use of insulin - nursing home (current) use of oral hypoglycemic drugs - Nicotine dependence, unspecified, uncomplicated - Other fci (current) drug therapy - Pain in left hip - Personal history of malignant neoplasm of pancreas - Presence of left artificial hip joint - Pure hypercholesterolemia, unspecified - Type 2 diabetes mellitus without complications 11/19/2023 04:11 [facility] [place] TYPE: Emergency COMPLAINT: - RT HAND INJURY DIAGNOSES: - Allergy status to other antibiotic agents - Allergy status to other drugs, medicaments and biological substances - Essential (primary) hypertension - termite control representative (current) use of aspirin - nursing home (current) use of inhaled steroids - termite control representative (current) use of oral hypoglycemic drugs - Nicotine dependence, unspecified, uncomplicated - Other fci (current) drug therapy - Other specified chronic obstructive pulmonary disease - Pain in right hand - Primary osteoarthritis, right hand - Pure hypercholesterolemia, unspecified - Type 2 diabetes mellitus without complications 10/11/2023 09:09 [facility] [place] TYPE: Emergency COMPLAINT: - WOUND CHECK DIAGNOSES: - Allergy status to other antibiotic agents - Allergy status to other drugs, medicaments and biological substances - Chronic obstructive pulmonary disease, unspecified - Cutaneous abscess of buttock - Essential (primary) hypertension - termite control representative (current) use of aspirin - nursing home (current) use of insulin - nursing home (current) use of oral hypoglycemic drugs - Nicotine dependence, unspecified, uncomplicated - Other assistant terminal manager (current) drug therapy - Type 2 diabetes mellitus without complications 10/01/2023 16:11 [facility] TYPE: Emergency COMPLAINT: - WEAKNESS/TROUBLE BREATHING DIAGNOSES: - Allergy status to other antibiotic agents - Allergy status to other drugs, medicaments and biological substances - Cutaneous abscess of buttock - Essential (primary) hypertension - nursing home (current) use of antithrombotics/antiplatelets - nursing home (current) use of aspirin - nursing home (current) use of inhaled steroids - nursing home (current) use of oral hypoglycemic drugs - Nicotine dependence, unspecified, uncomplicated - Other fci (current) drug therapy - Other specified chronic obstructive pulmonary disease - Pure hypercholesterolemia, unspecified - Type 2 diabetes mellitus without complications - Weakness 09/25/2023 20:08 [facility] [place] TYPE: Emergency COMPLAINT: - SOB DIAGNOSES: - Allergy status to other antibiotic agents - Allergy status to other drugs, medicaments and biological substances - Chronic obstructive pulmonary disease, unspecified - Essential (primary) hypertension - nursing home (current) use of aspirin - nursing home (current) use of insulin - nursing home (current) use of oral hypoglycemic drugs [...] to other specified factors, initial encounter - nursing home (current) use of insulin - Nicotine dependence, unspecified, uncomplicated - Other assistant terminal manager (current) drug therapy - Type 2 diabetes mellitus without complications INPATIENT VISIT TRACKING (12 MO.) 09/18/2023 20:06 [facility] [place] TYPE: Observation COMPLAINT: - COPD EXACERBATION DIAGNOSES: - Acute and chronic respiratory failure with hypoxia - Allergy status to other antibiotic agents - Allergy status to other drugs, medicaments and biological substances - Chronic obstructive pulmonary disease with (acute) exacerbation - Essential (primary) hypertension - Hyperlipidemia, unspecified - nursing home (current) use of aspirin - nursing home (current) use of insulin - Other assistant [...] (primary) hypertension - Essential (primary) hypertension - termite control representative (current) use of antibiotics - nursing home (current) use of antibiotics - nursing home (current) use of anticoagulants - nursing home (current) use of anticoagulants - termite control representative (current) use of inhaled steroids - nursing home (current) use of inhaled steroids - nursing home (current) use of insulin - nursing home (current) use of insulin - termite control representative (current) use of oral hypoglycemic drugs - termite control representative (current) use of oral hypoglycemic drugs - Nicotine dependence, cigarettes, uncomplicated - Nicotine dependence, cigarettes, uncomplicated - Other fci (current) drug therapy - Other assistant terminal [...] uncomplicated - Unspecified asthma, uncomplicated 08/04/2023 09:41 [facility] Naomie DUONG (Jelani Palomares) TYPE: Intensive Care DIAGNOSES: - Occlusion and stenosis of left carotid artery - Other acute postprocedural pain 01/28/2023 23:49 [facility] TYPE: Observation COMPLAINT: - COPD EXACERBATION DIAGNOSES: - Allergy status to other antibiotic agents - Allergy status to other drugs, medicaments and biological substances - Altered mental status, unspecified - Chronic obstructive pulmonary disease with (acute) exacerbation - Encounter for screening for COVID-19 - Essential (primary) hypertension - Gout, unspecified - Hyperlipidemia, unspecified - nursing home (current) use of antithrombotics/antiplatelets - nursing home (current) use of aspirin - termite control representative (current) use of oral hypoglycemic drugs - Nicotine dependence, cigarettes, uncomplicated - Restless legs syndrome - Type 2 diabetes mellitus without complications [email or web address]
[2024-01-24] MEDS ORDERED: ALBUTEROL/IPRATROPIUM 3 ML NEB INH PRN (16:45)
[2024-01-24] MEDS ORDERED: methylPREDNISolone SOD SUCC 125 MG/2 ML VIAL IV ONE (17:00)
[2024-01-24] MEDS ORDERED: ALBUTEROL/IPRATROPIUM 3 ML NEB INH ONE (17:00)
[2024-01-24] MEDS ORDERED: ROPINIROLE HCL 1 MG TAB PO ONE (17:00)
[2024-01-24 17:17] LABS: BASOPHILS 2.1 % (0-2); EOSINOPHILS 9.4 % (0-6); HEMATOCRIT 44.8 % (35.0-50.0); HEMOGLOBIN 14.6 g/dL (12.0-18.0); LYMPHOCYTES 18.4 % (24-44); MCH 30.6 (27-36); MCHC 32.5 g/dl (30-36); MCV 93.9 fl (81-99); MONOCYTES 9.3 % (0-12); NEUTROPHILS 60.8 % (39-80); PLATELET COUNT 195 K/uL (140-440); RBC 4.77 M/ul (4.3-5.7); RDW 16.2 (10.5-15.0)
[2024-01-24 17:40] LABS: ALBUMIN 3.6 g/dL (3.4-5.0); ALBUMIN/GLOBULIN RATIO 0.9 (1.1-2.4); ANION GAP 14.4 (7-21); BILIRUBIN, TOTAL 0.4 ng/dL (0.2-1.0); BUN/CREATININE RATIO 15.38 (6.0-28.6); CALCIUM 9.2 mg/dL (8.5-10.1); CREATININE, SERUM 1.04 mg/dL (0.70-1.30); MAGNESIUM 2.2 mg/dL (1.8-2.4); POTASSIUM 4.4 mmol/L (3.5-5.1); PROTEIN, TOTAL 7.6 g/dL (6.4-8.2)
[2024-01-24 17:47] LABS: INFLUENZA B NAA NEGATIVE (NEGATIVE); RESPIRATORY SYNCYTIAL VIR NAA NEGATIVE (NEGATIVE)
[2024-01-24] MEDS ORDERED: ECONAZOLE NITRA30 GM TOP (17:55)
[2024-01-24] MEDS ORDERED: PRESERVISION A1 EAC5 PO (17:57)
[2024-01-24] MEDS ORDERED: ALLOPURINOL100 MG PO (17:57)
[2024-01-24] MEDS ORDERED: NOVOLOG FL100 UNIT/1 SUB-Q (17:57)
[2024-01-24] MEDS ORDERED: MAGNESIUM100 MG PO (17:58)
[2024-01-24] MEDS ORDERED: PRAVASTATIN SOD80 MG PO (17:59)
[2024-01-24] MEDS ORDERED: CEFDINIR 300 MG CAP PO ONE (18:00)
[2024-01-24] MEDS ORDERED: AZITHROMYCIN 250 MG TAB PO ONE (18:00)
[2024-01-24] MEDS ORDERED: ZITHROMAX250 MG PO (18:03)
[2024-01-24] MEDS ORDERED: PREDNISONE20 MG PO (18:03)
[2024-01-24] MEDS ORDERED: CEFDINIR300 MG PO (18:03)
[2024-01-24 18:11] VITALS: BP 157/74
--- NOTE | 2024-01-25 19:17 | EKG ---
[facility] [address] [facility] [place] [address] Signed Sinus rhythm with frequent premature ventricular complexes Left axis deviation Junctional ST depression, probably abnormal Abnormal ECG When compared with ECG of 24-JAN-2024 11:25, (Unconfirmed) premature ventricular complexes are now present (RBBB and left anterior fascicular block) is no longer present Confirmed by Fredi Britton MD ([id number]) on 01/25/2024 7:17:39 PM Electronically Signed By: FREDI BRITTON MD 01/25/241916 PATIENT NAME: ROSIE JANE Electrocardiogram DATE OF : 43 PHYSICIAN: FREDI BRITTON MD REPORT #: [id number] REPORT IS CONFIDENTIAL AND NOT TO BE RELEASED WITHOUT AUTHORIZATION
== END 2024-01-24 18:13 | disposition home or self-care (01) ==
LOC: ED 16:27
PROVIDERS: Emergency Medicine
DX: J44.1 Chronic obstructive pulmonary disease with (acute) exacerbation (principal); J44.0 Chronic obstructive pulmonary disease with (acute) lower respiratory infection; J18.9 Pneumonia, unspecified organism; I10 Essential (primary) hypertension; E11.9 Type 2 diabetes mellitus without complications; F17.200 Nicotine dependence, unspecified, uncomplicated; Z88.1 Allergy status to other antibiotic agents; Z88.8 Allergy status to other drugs, medicaments and biological substances; Z79.84 Long term (current) use of oral hypoglycemic drugs; Z79.4 Long term (current) use of insulin; Z79.82 Long term (current) use of aspirin; Z79.899 Other long term (current) drug therapy
CPT/HCPCS: 36415; 71045; 80053; 83735; 83880; 84484; 85025; 87502; 93005; 93010; 94640; 96374; 99285-25; J2919; U0002

== ENCOUNTER 2024-05-14 19:27 | Inpatient (IN) | payer OTHER, MEDICARE ==
[~2024-05-14] VITALS: Ht 175.3 cm; Wt 60.7 kg
[~2024-05-14 19:27] MED LIST changes: +ACTOS30 MG PO; +ALLOPURINOL100 MG PO; -COLCRYS0.6 MG PO; +MAGNESIUM250 M1 PO; +NOVOLOG FL100 UNIT/1 SUB-Q; -PIOGLITAZONE HC15 MG PO; +PRESERVISION A1 EAC5 PO
[2024-05-14] MEDS ORDERED: DEXTROSE 50% 50 ML SYR ONE (19:37)
[2024-05-14 19:40] LABS: BASOPHILS 0.7 % (0-2); HEMATOCRIT 45.8 % (35.0-50.0); HEMOGLOBIN 15.2 g/dL (12.0-18.0); LYMPHOCYTES 12.9 % (24-44); MCH 31.7 (27-36); MCHC 33.1 g/dl (30-36); MCV 95.7 fl (81-99); MONOCYTES 10.9 % (0-12); NEUTROPHILS 72.5 % (39-80); PLATELET COUNT 130 K/uL (140-440); RBC 4.78 M/ul (4.3-5.7); RDW 16.5 (10.5-15.0)
[2024-05-14] MEDS ORDERED: ALBUTEROL/IPRATROPIUM 3 ML NEB INH PRN (19:45)
[2024-05-14] MEDS ORDERED: DEXTROSE 50% 50 ML SYR IV ONE (19:45)
[2024-05-14 19:58] LABS: ALBUMIN 3.6 g/dL (3.4-5.0); ALBUMIN/GLOBULIN RATIO 0.92 (1.1-2.4); ANION GAP 13.5 (7-21); BILIRUBIN, TOTAL 0.5 mg/dL (0.2-1.0); BUN/CREATININE RATIO 16.32 (6.0-28.6); CALCIUM 8.8 mg/dL (8.5-10.1); CREATININE, SERUM 0.98 mg/dL (0.70-1.30); MAGNESIUM 2.4 mg/dL (1.8-2.4); POTASSIUM 4.5 mmol/L (3.5-5.1); PROTEIN, TOTAL 7.5 g/dL (6.4-8.2)
[2024-05-14 20:29] LABS: CORONAVIRUS COVID-19 AG NEGATIVE (NEGATIVE); INFLUENZA A AG NEGATIVE (NEGATIVE); INFLUENZA B AG NEGATIVE (NEGATIVE)
[2024-05-14] MEDS ORDERED: ALBUTEROL SULFATE 0.5% 2.5 MG/0.5 ML VIAL INH ONE (20:30)
[2024-05-14] MEDS ORDERED: methylPREDNISolone SOD SUCC 125 MG/2 ML VIAL IV ONE (20:30)
[2024-05-14] MEDS ORDERED: FUROSEMIDE 20 MG/2 ML VIAL IV ONE (20:45)
[2024-05-14] MEDS ORDERED: LORazepam 2 MG/ML VIAL IV ONE (21:00)
[2024-05-14 22:03] LABS: PH, VENOUS 7.389 (7.31-7.41)
[2024-05-14] MEDS ORDERED: IBLOOD GLUCOSE TEST STRIP 1 EA TEST XX PRN (22:15)
[2024-05-14] MEDS ORDERED: ondansetron HCL 4 MG/2 ML VIAL IV PRN (22:15)
[2024-05-14] MEDS ORDERED: ACETAMINOPHEN 325 MG TAB PO PRN (22:15)
[2024-05-14] MEDS ORDERED: DEXTROSE 50% 50 ML SYR IV PRN ×2 (22:15)
[2024-05-14] MEDS ORDERED: GLUCAGON,HUMAN RECOMBINANT 1 MG/ML VIAL SUB-Q PRN (22:15)
[2024-05-14] MEDS ORDERED: DEXTROSE 5% 1,000 ML IV PRN (22:15)
[2024-05-14] MEDS ORDERED: ROPINIROLE HCL 1 MG TAB PO SCH (22:29)
[2024-05-14] MEDS ORDERED: GABAPENTIN 300 MG CAP PO PRN (22:30)
[2024-05-14] MEDS ORDERED: NICOTINE 14 MG/24 HR 1 EA TDSY TD PRN (22:30)
[2024-05-14] MEDS ORDERED: AZITHROMYCIN 500 MG in DEXTROSE 5% 250 ML IV SCH (22:32)
[2024-05-14] MEDS ORDERED: CEFTRIAXONE SODIUM 2 GM in SODIUM CHLORIDE 0.9% 100 ML IV SCH (22:33)
[2024-05-14] MEDS ORDERED: CLOTRIMAZOLE 1% 30 GM TUBE TOP SCH (22:41)
[2024-05-14] MEDS ORDERED: guaiFENesin 600 MG TABCR PO PRN (22:45)
[2024-05-14] MEDS ORDERED: BENZONATATE 100 MG CAP PO PRN (22:45)
[2024-05-14] MEDS ORDERED: DEXTROSE 5% 250 ML IV ONE (22:49)
[2024-05-14 23:19] VITALS: BP 119/83
[2024-05-14] MEDS ORDERED: CEFTRIAXONE SODIUM 2 GM VIAL ONE (23:23)
[2024-05-14] MEDS ORDERED: hydrOXYzine pamoate 25 MG CAP PO PRN (23:45)
[2024-05-14] MEDS ORDERED: ALBUTEROL SULFATE 0.083% 3 ML VIAL INH PRN (23:45)
--- NOTE | 2024-05-14 23:46 | NUR ---
RT PROVIDED LYRIC WITH A PEP CORNET. HE DEMONSTRATED UNDERSTANDING AND PROFICIENCY IN THE USE OF THE CORNET LEVEL 5 PEP. ADDITIONALLY, RT PLACED LYRIC ON A CONTINUOUS PULSE OX DUE TO PNEUMONIA AND HIS NEED FOR OXYGEN. RT PLACED DUONEB, PULMICORT, AND ALBUTEROL ORDERS FOR LYRIC TO HELP HEAL FROM THE PNEUMONIA WITH A COPD EXACERBATION. LYRIC STATED THAT HE HAS BEEN SMOKING FOR WELL OVER 40 YEARS, DOES NOT USE A HOME CPAP/BIPAP, AND DOES HAVE PRN OXYGEN FOR HOME.
[2024-05-14 23:47] VITALS: BP 119/83
--- NOTE | 2024-05-14 23:58 | NUR ---
PATIENT ARRIVED TO THE FLOOR VIA STRETCHER. PATIENT ABLE TO TRANSFER FROM STRETCHER TO BED WITH MINIMAL ASSISTANCE. PATIENTS STANDING WEIGHT OBTAINED. PATIENT IS IN HOSPITAL BED RESTING. PATIENT PLACED ON 1L VIA NC. PATIENTS VITALS OBTAINED AND RECORDED. PATIENTS ADMISSION COMPLETED BY EMR IMPLEMENTATION SPECIALIST. PATIENTS ASSESMENT COMPLETED. IV ANX INFUSING PER ORDER. PATIENTS PM MEDS GIVEN PER ORDER. PATIENT IS REQUESTING MEDICATION FOR ANXIETY. PLACED CALL TO MD TO REQUEST PRN ANXIETY MEDICATION. TELEPHONE ORDER RECEIVED AND VERIFIED USING READBACK METHOD.
[2024-05-15] VITALS (10 sets, daily range): BP systolic 127–157; BP diastolic 62–79
--- NOTE | 2024-05-15 00:12 | NUR ---
PATIENT IS RESTING IN BED AND REMAINS ON 1L VIA NC. PATIENT GIVEN PRN ANXIETY PER REQUEST. PATIENT DENIES ANY FURTHER NEEDS. CALL LIGHT IN REACH. CPOX IN USE.
--- NOTE | 2024-05-15 02:21 | NUR ---
PATIENT IS RESTING IN BED WITH EYES CLOSED, RR 20. PATIENT REMAINS ON 1L VIA NC. CPOX IN USE. NAD NOTED. CALL LIGHT IN REACH.
--- NOTE | 2024-05-15 02:45 | NUR ---
PRN ALBUTEROL GIVEN. LYRIC WENT TO THE RESTROOM AND WAS SOB UPON RETURNING TO BED.
--- NOTE | 2024-05-15 02:55 | NUR ---
PATIENT UP OUT BED AND VOIDED. PATIENT SOB WHEN GETTING UP TO VOID. PATIENT IS BACK IN BED RESTING. RT IN ROOM TO ADMIN NEB. PATIENT REMAINS ON 1L VIA NC. CPOX IN USE. PATIENT DENIES ANY PAIN. NO FURTHER NEEDS NOTED. CALL LIGHT IN REACH.K
--- NOTE | 2024-05-15 04:07 | NUR ---
PATIENT IS RESTING IN BED WITH EYES CLOSED, CPOX READINGS ARE WNL. CALL LIGHT IN REACH. NAD NOTED.
[2024-05-15 05:22] LABS: BASOPHILS 0.1 % (0-2); HEMATOCRIT 38.4 % (35.0-50.0); HEMOGLOBIN 12.6 g/dL (12.0-18.0); LYMPHOCYTES 1.6 % (24-44); MCH 31.9 (27-36); MCHC 32.8 g/dl (30-36); MCV 97.3 fl (81-99); MONOCYTES 0.6 % (0-12); NEUTROPHILS 97.7 % (39-80); PLATELET COUNT 103 K/uL (140-440); RBC 3.95 M/ul (4.3-5.7); RDW 16.6 (10.5-15.0)
[2024-05-15 05:38] LABS: ALBUMIN 2.9 g/dL (3.4-5.0); ALBUMIN/GLOBULIN RATIO 0.85 (1.1-2.4); ANION GAP 16.2 (7-21); BILIRUBIN, TOTAL 0.3 mg/dL (0.2-1.0); BUN/CREATININE RATIO 13.28 (6.0-28.6); CREATININE, SERUM 1.43 mg/dL (0.70-1.30); MAGNESIUM 2.3 mg/dL (1.8-2.4); PHOSPHORUS, INORGANIC 3.3 mg/dL (2.5-4.9); POTASSIUM 5.2 mmol/L (3.5-5.1); PROTEIN, TOTAL 6.3 g/dL (6.4-8.2)
--- NOTE | 2024-05-15 06:15 | NUR ---
PLACED CALL TO MD TO UPDATE ON PATIENTS CRITCAL BS. NEW ORDERS RECEIVED. VERIFIED ORDER USING REPEATBACK METHOD.
[2024-05-15] MEDS ORDERED: INSULIN GLARGINE-YFGN 100 UNIT/ML ML SUB-Q ONE (06:30)
--- NOTE | 2024-05-15 06:45 | NUR ---
PATIENT IS RESTING IN BED WATCHING TV. PATIENTS BS CHECKED AND SS AND LONG ACTING GIVEN PER ORDER. PATIENT GIVEN PRN ANXIETY MEDICATION PER REQUEST. PATIENT UPDATED ON PLAN OF CARE AND ALL QUESTIONS ANSWERED. PATIENT DENIES ANY SOB. PATIENT REMAINS ON 1L VIA PR. PATIENT DENIES ANY FURTHER NEEDS. CALL LIGHT IN REACH.
--- NOTE | 2024-05-15 07:10 | NUR ---
REPORT RECEIVED FROM HENRY VASQUEZ. PT REQUESTS USING URINAL. STANDS AT BEDSIDE TO USE URINAL INDEPENDENTLY. PT ENCOURAGED TO USE CALL LIGHT, CALL IF HE IS EXPERIENCING SOB OR LIGHTHEADEDNESS. PT VERBALIZES UNDERSTANDING.
--- NOTE | 2024-05-15 07:29 | NUR ---
PT ASSISTED TO BSC WITH SBA ONLY. CALL LIGHT IN REACH, TOILET PAPER AVAILABLE.
--- NOTE | 2024-05-15 07:45 | NUR ---
NOTIFIED OF BLOOD GLUCOSE OF 462, NO NEW ORDERS AT THIS TIME.
[2024-05-15] MEDS ORDERED: ALBUTEROL/IPRATROPIUM 3 ML NEB INH SCH ×2 (08:00→12:00)
[2024-05-15] MEDS ORDERED: IBLOOD GLUCOSE TEST STRIP 1 EA TEST VI SCH (08:00)
[2024-05-15] MEDS ORDERED: INSULIN LISPRO 100 UNIT/ML ML SUB-Q SCH (08:00)
[2024-05-15] MEDS ORDERED: BUDESONIDE 0.5 MG/2 ML VIAL INH SCH (08:00)
--- NOTE | 2024-05-15 08:11 | NUR ---
PATIENT IN BED AT THIS TIME. CHIEF TRANSFER AND PUMPHOUSE OPERATOR WENT INTO PATIENTS ROOM FOR HOURLY ROUNDS. CALL LIGHT WITHIN REACH, NO FURTHER NEEDS AT THIS TIME.
--- NOTE | 2024-05-15 08:26 | NUR ---
MEDICATION ADMINISTERED, SEE MAR. PTs IV IN L WRIST HAS INFILTRATED WHEN FLUSHING. IV REMOVED. NEW IV PLACED IN R FOREARM. BREAKFAST TRAY ARRIVES, PT IS EATING BREAKFAST AT THIS TIME. NO OTHER REQUESTS, CALL LIGHT IN REACH.
[2024-05-15] MEDS ORDERED: ENOXAPARIN SODIUM 40 MG/0.4 ML SYR SUB-Q SCH (09:00)
[2024-05-15] MEDS ORDERED: methylPREDNISolone SOD SUCC 125 MG/2 ML VIAL IV SCH (09:00)
--- NOTE | 2024-05-15 09:17 | NUR ---
PT FAMILY PRESENT IN ROOM AT THIS TIME, REQUESTING TO BRING PT MCDONALDS. PT AND PT FAMILY EDUCATED ON PTs BLOOD SUGARS, ALL VERBALIZE UNDERSTANDING. PT IS REQUESTING ANTI-ANXIETY MEDICATION AT THIS TIME. AMISH, RESPIRATORY THERAPY, ALSO PRESENT IN ROOM ADMINISTERING BREATHING TREATMENT. NO OTHER REQUESTS, CALL LIGHT IN REACH.
--- NOTE | 2024-05-15 09:26 | NUR ---
NOTIFIED OF PTs CONTINUED COMPLAINTS OF ANXIEY.
[2024-05-15] MEDS ORDERED: LORazepam 1 MG TAB PO ONE (09:30)
--- NOTE | 2024-05-15 09:34 | NUR ---
PATIENT IN BED AT THIS TIME. ENGINEERING FACULTY MEMBER CHARTED VITALS AND I&O'S. CALL LIGHT WITHIN REACH, NO FURTHER NEEDS AT THIS TIME.
--- NOTE | 2024-05-15 10:45 | NUR ---
ASSESSMENT COMPLETE. PT HAS TWO VISITORS PRESENT IN ROOM AT THIS TIME. HE ENDORSES ANXIETY, ANXIOLYTIC MEDICATION ADMINISTERED, SEE MAR. CPOX AT BEDSIDE. PT SUSTAINS SPO2>96% WHILE RESTING IN BED. LUNG SOUNDS ARE COARSE WITH WHEEZES THROUGHOUT. PT HAS SEVERAL QUESTIONS REGARDING NEBULIZER TX AND INHALERS, EDUCATION PROVIDED, PT VERBALIZES UNDERSTANDING. PITTING EDEMA NOTED TO BILAT ANKLES TO MID-CALF. PT REPORTS THIS EDEMA IS CHRONIC FOR HIM, FAMILY INCLUDES THAT HE USUALLY JUST HAS SWELLING OF THE R LEG AND NOT BOTH. PT DENIES CARDIAC HX. FRESH ICE WATER PROVIDED. PT IS REQUESTING MCDONALDs. EDUCATION PROVIDED REGARDING BLOOD SUGARS, PT VERBALIZES UNDERSTANDING. NO OTHER REQUESTS AT THIS TIME, CALL LIGHT IN REACH.
--- NOTE | 2024-05-15 11:24 | NUR ---
MD PRESENT IN ROOM TO ASSESS, ANSWER QUESTIONS, AND ADDRESS CONCERNS. ALL QUESTIONS AND CONCERNS ADDRESSED AT THIS TIME. NO REQUESTS, CALL LIGHT IN REACH.
[2024-05-15] MEDS ORDERED: INHALER, ASSIST DEVICES 1 EACH SPACER MISC ONE (11:30)
[2024-05-15] MEDS ORDERED: ALBUTEROL SULFATE 8 GM INH INH PRN (11:30)
[2024-05-15] MEDS ORDERED: VENTOLIN HFA18 GM INH (11:35)
[2024-05-15] MEDS ORDERED: PHARMACY RENAL DOSE ADJUSTMENT 1 DOSE MISC PO SCH (12:00)
--- NOTE | 2024-05-15 12:05 | NUR ---
PT UPDATED ON PLAN OF CARE. PT REPORTS GOOD EFFECT FROM ANXIOLYTIC THIS AM. PHARMACY LATANYA PRESENT ATTEMPTING TO GET ACCURATE MED RECORDS. LATANYA REMAINS IN ROOM AT THIS TIME.
--- NOTE | 2024-05-15 12:29 | NUR ---
MEDICATION ADMINISTERED, SEE MAR. URINAL EMPTIED. PT IS EATING LUNCH. NO REQUESTS AT THIS TIME, CALL LIGHT IN REACH, SON PRESENT IN ROOM.
[2024-05-15] MEDS ORDERED: IRON325 M1 PO (13:05)
[2024-05-15] MEDS ORDERED: METFORMIN HCL500 M3 PO (13:07)
[2024-05-15] MEDS ORDERED: INSULIN AS100 UNIT/3 SUB-Q (13:11)
[2024-05-15] MEDS ORDERED: COLCRYS0.6 MG PO (13:13)
[2024-05-15] MEDS ORDERED: AZITHROMYCIN250 MG PO (13:13)
[2024-05-15] MEDS ORDERED: ONE DAILY WITH1 EACH PO (13:15)
--- NOTE | 2024-05-15 13:45 | NUR ---
PT RESTING IN BED WITH HOB ELEVATED, EYES CLOSED, RR EVEN AND UNLABORED WITH OCCASIONAL MOAN HEARD. CPOX AT BEDSIDE. SON REMAINS IN ROOM. LUNCH TRAY REMOVED. CALL LIGHT IN REACH.
--- NOTE | 2024-05-15 14:54 | NUR ---
PT RESTING IN BED, 2LNC IN PLACE WITH CPOX AT BEDSIDE. SON REMAINS IN ROOM. PT REPORTS SLIGHT EASE IN BREATHING. LUNG SOUNDS DIMINISHED THROUGHOUT, EXPIRATORY WHEEZES NOTED TO BUL, WHEEZES NOTED BLL. PT EXPRESSES CONCERN REGARDING RLS MEDICATIONS. IV TO R FOREARM FLUSHES WNL. NO REQUESTS AT THIS TIME, CALL LIGHT IN REACH.
--- NOTE | 2024-05-15 16:24 | NUR ---
MEDICATION ADMINISTERED, SEE MAR. PT UP IN RECLINER WORKING WITH AMISH FROM RESPIRATORY THERAPY AT THIS TIME. PT PRESENT IN ROOM. PT ASKING ABOUT PREVIOUSLY ADMINISTERED ANXIOLYTIC, STATES HE FELT IT WORKED VERY WELL FOR HIM. LARGER SOCKS PROVIDED PER PT REQUEST. PT HAS NO OTHER REQUESTS AT THIS TIME, REMAINS WORKING WITH RT. REMAINS IN ROOM. CALL LIGHT IN REACH.
--- NOTE | 2024-05-15 16:32 | NUR ---
MESSAGED REGARDING PTs MEDICATION REQUESTS.
--- NOTE | 2024-05-15 16:55 | NUR ---
MEDICATION ADMINISTERED, SEE MAR. PT UP IN RECLINER EATING SUPPER AT THIS TIME. NO REQUESTS, CALL LIGHT IN REACH.
[2024-05-15] MEDS ORDERED: GABAPENTIN 300 MG CAP PO SCH (17:00)
[2024-05-15] MEDS ORDERED: ROPINIROLE HCL 1 MG TAB PO SCH (17:00)
--- NOTE | 2024-05-15 18:30 | NUR ---
PT CPOX ALARMING. PT STANDING AT BEDSIDE USING URINAL, HE HAS REMOVED HIS CPOX PROBE. PT FINISHES WITH URINAL. FRESH CPOX PROBE APPLIED. PT EXPRESSES CONCERNS OVER MEDICATIONS, THERAPEUTIC COMMUNICATION PROVIDED. PT LAYS BACK DOWN IN BED, THIS RN ASSISTS TO RAISE COVERS. PT SPEAKS BRIEFLY THAT HE WAS IN [place] BUT DOES NOT EXPAND FURTHER. NO REQUESTS AT THIS TIME, CALL LIGHT IN REACH.
--- NOTE | 2024-05-15 19:15 | NUR ---
RECEIVED REPORT FROM DAY SHIFT RN. PATIENT IS RESTING IN BED. PATIENT DENIES ANY NEEDS. CALL LIGHT IN REACH.
--- NOTE | 2024-05-15 19:18 | EKG ---
[facility] [address] [facility] [place] [address] Signed Normal sinus rhythm Left axis deviation Junctional ST depression, probably normal Abnormal ECG When compared with ECG of 24-JAN-2024 16:43, premature ventricular complexes are no longer present Confirmed by Bertha Sanchez MD () on 05/15/2024 7:17:49 PM Electronically Signed By: BERTHA SANCHEZ MD 05/15/241917 PATIENT NAME: ROSIE JANE Electrocardiogram DATE OF : 43 PHYSICIAN: BERTHA SANCHEZ MD REPORT #: [id number] REPORT IS CONFIDENTIAL AND NOT TO BE RELEASED WITHOUT AUTHORIZATION
[2024-05-15] MEDS ORDERED: CEFTRIAXONE SODIUM 2 GM VIAL ONE (20:54)
[2024-05-15] MEDS ORDERED: AZITHROMYCIN 500 MG VIAL ONE (20:54)
--- NOTE | 2024-05-15 21:23 | NUR ---
PATIENTS VITALS TAKEN AND RECORDED. INTAKE AND OUTPUT RECORDED. PATIENT REMAINS ON 1L VIA NC. PATIENTS PM MEDS GIVEN PER ORDER. ABX INFUSING PER ORDER. PATIENT DENIES ANY PAIN. PATIENT DOES REPORT SOB-RT IN ROOM TO ADMIN NEB. ASSESMENT COMPLETED. PATIENT HAS CPOX IN USE. PATIENTS BS CHECK AND NO SS GIVEN BS NOTED TO BE 96. SNACK PROVIDED PER PATIENT REQUEST. PATIENT DENIES ANY FURTHER NEEDS. RT REMAINS IN ROOM. CALL LIGHT IN REACH.
--- NOTE | 2024-05-15 21:24 | NUR ---
RT DECREASED LYRIC TO 0.5L NC DURING HIS BREATHING TREATMENT TO SEE IF HE CAN MAINTAIN HIS SPO2 OFF OXYGEN. LYRIC DID REQUEST TO BE TRIALED OFF THE OXYGEN. LYRIC USES THE CORNET LEVEL 5 W/O DIFFICULTY.
--- NOTE | 2024-05-15 21:35 | NUR ---
LYRIC'S NASAL CANNULA IS CURRENTLY OFF, THOUGH HE DOES WEAR 1-3L PRN AT HOME. CURRENTLY LYRIC IS MAINTAINING HIS SPO2. RN HAS BEEN NOTIFIED OF CHANGE.
--- NOTE | 2024-05-15 22:25 | NUR ---
PATIENT REQUESTING MEDICATION FOR ANXIETY. PATIENT STATED "I JUST FEEL ANXIOUS AND I CANT SLLEP", PRN MEDICATION GIVEN PER ORDER. PATIENT DENIES ANY PAIN OR SOB. PATIENT DENIES ANY FURTHER NEEDS. CALL LIGHT IN REACH. IV ABX INFUSING PER ORDER.
[2024-05-15] MEDS ORDERED: LORazepam 1 MG TAB PO PRN (22:45)
--- NOTE | 2024-05-15 23:46 | NUR ---
LYRIC IS ASLEEP ON ROOM AIR AND MAINTAINING AN SPO2 OF 90-93%. RT REMOVED LYRIC'S GLASSES AND PLACED THEM ON THE BEDSIDE TABLE. DUONEB WAS GIVEN. LYRIC DOES MUMBLE TALK IN HIS SLEEP.
--- NOTE | 2024-05-16 00:01 | NUR ---
PATIENT IS RESTING IN BED WITH EYES CLSOED, CPOX READINGS ARE WNL. CALL LIGHT ON REACH. URINAL EMPITED.
--- NOTE | 2024-05-16 02:04 | NUR ---
PATIENT UP TO VOID IN URINAL AND MISSED URINAL. PATIENTS GOWN CHANGED. PATIENT IS BACK IN BED RESTING. PATIENTS LEGS WASHED AND NEW SOCKS APPLIED. PATIENT DENIES ANY PAIN OR SOB. PATIENT IS ON RA. VPOX IN USE. PATIENT DENIES ANY FURTHER NEEDS. CALL LIGHT IN REACH.
--- NOTE | 2024-05-16 04:18 | NUR ---
PATIENT IS RESTING IN BED WITH EYES CLOSED, CPOX READINGS ARE WNL. CALL LIGHT IN REACH.
[2024-05-16 04:37] VITALS: BP 160/74
[2024-05-16 04:42] VITALS: BP 160/74
--- NOTE | 2024-05-16 04:49 | NUR ---
PATIENT STOOD AT BEDSIDE AND USED URINAL. PATIENT ABLE TO VOID. PATIENT IS NOW IN RELCINER RESTING. PATIENTS VITALS TAKEN AND RECORDED. INTAKE AND OUTPUT RECORDED. PATIENT REPORTS SOB AND C/O COUGH. PRN COUGH MEDICATION GIVEN PER ORDER. PATIENT GIVEN PRN ANXIETY MEDICATION PER REQUEST. PATIENTS DW OBTAINED AND RECORDED. RT IN ROOM TO ADMIN NEB. PATIENT DENIES ANY FURTHER NEEDS. CALL LIGHT IN REACH. FRESH COFFEE AND WATER PROVIDED.
[2024-05-16 05:48] LABS: BASOPHILS 0.2 % (0-2); HEMATOCRIT 41.8 % (35.0-50.0); HEMOGLOBIN 13.5 g/dL (12.0-18.0); MCH 31.2 (27-36); MCHC 32.3 g/dl (30-36); MCV 96.6 fl (81-99); MONOCYTES 2.4 % (0-12); NEUTROPHILS 94.4 % (39-80); PLATELET COUNT 112 K/uL (140-440); RBC 4.32 M/ul (4.3-5.7); RDW 16.6 (10.5-15.0)
[2024-05-16 06:12] LABS: ALBUMIN 3.2 g/dL (3.4-5.0); ALBUMIN/GLOBULIN RATIO 0.94 (1.1-2.4); ANION GAP 13.7 (7-21); BILIRUBIN, TOTAL 0.2 mg/dL (0.2-1.0); BUN/CREATININE RATIO 23.68 (6.0-28.6); CALCIUM 8.7 mg/dL (8.5-10.1); CREATININE, SERUM 1.14 mg/dL (0.70-1.30); POTASSIUM 4.7 mmol/L (3.5-5.1); PROTEIN, TOTAL 6.6 g/dL (6.4-8.2)
--- NOTE | 2024-05-16 07:53 | NUR ---
MORNING REPORT RECIEVED FROM, HENRY VAQSUEZ. PT SITTING UP IN CHAIR PT REQUESTED MEDICATION FOR RESTLESS LEGS. MD SANCHEZ WAS MADE AWARE. PT HAS CALL LIGHT IN REACH AND NO CONCERNS AT THIS TIME.
--- NOTE | 2024-05-16 07:56 | NUR ---
MORNING GABAPENTIN GIVEN. DR. SANCHEZ IS ORDERING 2MG MIRAPEX THIS MORNING.
[2024-05-16] MEDS ORDERED: ALBUTEROL/IPRATROPIUM 3 ML NEB INH SCH (08:00)
[2024-05-16] MEDS ORDERED: ROPINIROLE HCL 1 MG TAB PO ONE (08:00)
--- NOTE | 2024-05-16 08:03 | NUR ---
PATIENT GIVEN ONE TIME DOSE 2MG REQUIP. BG IS 302.
--- NOTE | 2024-05-16 08:19 | NUR ---
UR CLINICAL REVIEW: [facility] [place] MEETS INPT STATUS FOR PNEUMONIA ID [facility] IN[facility] 05/14/24 @ 2219 ORDER MATCHES REG CLINICALS FAXED TO [facility] FOR REVIEW DISCHARGE TO HOME WHEN STABLE 05/18/24
[2024-05-16 08:59] VITALS: BP 148/66
--- NOTE | 2024-05-16 10:00 | NUR ---
PT LAYING IN BED WITH AT PT BEDSIDE, PT HAS NO CONCERNS AT THIS TIME. CALL LIGHT IN REACH.
--- NOTE | 2024-05-16 10:19 | NUR ---
Today I find Shan in his bed, AAOX3 and answering questions appropriately. His is at the bedside. Shan shares that he feels like his care has been good while in the hospital. He verbalizes that the nurses are explaining his treatment plan and medications, including side effects to him. And he feels that he has had good explanation of his transition of care for self care when returning to home. The IMM letter is explained, along with the four hour waiver information. Shna is agreeable with the information, he does cassie the IMM letter, and a signed copy of the letter is provided to him. He denies further questions or needs at this time.
[2024-05-16 10:31] VITALS: BP 148/66
--- NOTE | 2024-05-16 11:06 | NUR ---
PT WANTED TO MAKE SURE THE PT HAD NO RECIEVED ANY PAIN MEDICATION LIKE OXY. PT REPORTS PT HAS PAST ADDICTIONS TO NARCOTICS. PT WAS WAS AGREEABLE TO CONVERSATION.
--- NOTE | 2024-05-16 11:41 | NUR ---
PT SITTING UP IN BED WITH SITTING BED SIDE, MD SANCHEZ IS IN ROOM DISCUSSING POC WITH THE FAMILY. PT HAS CALL LIGHT IN REACH.
--- NOTE | 2024-05-16 11:44 | NUR ---
ALERT AND ORIENTED. FAMILY MEMBER IN ROOM AT THIS TIME. PATIENT LIVES IN HOUSE WITH RAMP TO GET INSIDE. HE HAS A WALKER, CANE, WHEELCHAIR, ELECTRIC SCOOTER, NEBULIZER AND OXYGEN HE WEARS PRN, THROUGH [employer]. PATIENT HAS A CAREGIVER WHICH IS PROVIDED BY MA. HE GETS 10 HOURS A WEEK OF ASSISTANCE. HE DRIVES. HE HAS NO FINANCIAL CONCERNS. HIS PHONE NUMBER IS NOT CORRECT IN THE SYSTEM. HIS PHONE NUMBER IS [phone]. ADMITTING NOTIFIED. NO KNOWN CM NEEDS AT THIS TIME. WILL CONTINUE TO CHECK IN WITH PATIENT.
--- NOTE | 2024-05-16 11:58 | NUR ---
medications reconciled by pharmacy
[2024-05-16] MEDS ORDERED: CEFDINIR300 MG PO (12:09)
[2024-05-16] MEDS ORDERED: CLOTRIMAZOLE45 G1 TOP (12:12)
[2024-05-16] MEDS ORDERED: PREDNISONE20 MG PO (12:14)
--- NOTE | 2024-05-16 12:20 | NUR ---
PT SITTING UP IN CHAIR, PT HAS LUNCH TRAY AND HAS NO CONCERNS AT THIS TIME. PT HAS CALL LIGHT IN REACH.
[2024-05-16 13:06] VITALS: BP 151/70
== END 2024-05-16 13:47 | disposition home or self-care (01) | DRG 193 ==
LOC: ED 19:27 → MS 22:19
PROVIDERS: Emergency Medicine; ADMIT Family Medicine; ATTEND Family Medicine
DX: J18.9 Pneumonia, unspecified organism (principal); J96.01 Acute respiratory failure with hypoxia; J44.0 Chronic obstructive pulmonary disease with (acute) lower respiratory infection; J44.1 Chronic obstructive pulmonary disease with (acute) exacerbation; I10 Essential (primary) hypertension; F17.210 Nicotine dependence, cigarettes, uncomplicated; Z96.643 Presence of artificial hip joint, bilateral; E78.5 Hyperlipidemia, unspecified; R21 Rash and other nonspecific skin eruption; G25.81 Restless legs syndrome; D69.6 Thrombocytopenia, unspecified; E87.70 Fluid overload, unspecified; E11.65 Type 2 diabetes mellitus with hyperglycemia; F41.9 Anxiety disorder, unspecified; Z98.62 Peripheral vascular angioplasty status; Z98.890 Other specified postprocedural states; Z88.1 Allergy status to other antibiotic agents; Z85.07 Personal history of malignant neoplasm of pancreas; Z99.81 Dependence on supplemental oxygen; Z87.09 Personal history of other diseases of the respiratory system; Z88.8 Allergy status to other drugs, medicaments and biological substances; Z79.84 Long term (current) use of oral hypoglycemic drugs; Z79.899 Other long term (current) drug therapy; Z79.4 Long term (current) use of insulin; Z79.51 Long term (current) use of inhaled steroids; Z79.82 Long term (current) use of aspirin; Z79.85 Long-term (current) use of injectable non-insulin antidiabetic drugs
CPT/HCPCS: 36415; 71045; 80053; 82803; 83036; 83735; 83880; 84100; 84484; 85025; 93005; 93010; 93970; 94640; 94644; 94667; 94668; 94762; 96374; 96375; 99285-25; A9270; A9270-GY; J0456; J1815; J1940; J2060; J2919; J7060; Q0177

== ENCOUNTER 2024-06-14 16:10 | Inpatient (IN) | payer OTHER, MEDICARE ==
[~2024-06-14] VITALS: Ht 175.3 cm; Wt 62.2 kg
[~2024-06-14 16:10] MED LIST changes: +CLOTRIMAZOLE45 G1 TOP; +COLCRYS0.6 MG PO; +INSULIN AS100 UNIT/3 SUB-Q; +IRON325 M1 PO; +METFORMIN HCL500 M3 PO; +ONE DAILY WITH1 EACH PO; +VENTOLIN HFA18 GM INH
[2024-06-14 16:27] LABS: BASOPHILS 0.7 % (0-2); EOSINOPHILS 4.2 % (0-6); HEMOGLOBIN 15.3 g/dL (12.0-18.0); LYMPHOCYTES 9.9 % (24-44); MCHC 33.2 g/dl (30-36); MCV 96.2 fl (81-99); MONOCYTES 8.6 % (0-12); NEUTROPHILS 76.6 % (39-80); PLATELET COUNT 126 K/uL (140-440); RBC 4.78 M/ul (4.3-5.7); RDW 16.7 (10.5-15.0)
[2024-06-14] MEDS ORDERED: ALBUTEROL/IPRATROPIUM 3 ML NEB INH PRN (16:30)
[2024-06-14] MEDS ORDERED: methylPREDNISolone SOD SUCC 125 MG/2 ML VIAL IV ONE (16:45)
[2024-06-14] MEDS ORDERED: ALBUTEROL SULFATE 0.5% 2.5 MG/0.5 ML VIAL INH ONE (16:45)
[2024-06-14 16:46] LABS: ALBUMIN 3.8 g/dL (3.4-5.0); ALBUMIN/GLOBULIN RATIO 1.09 (1.1-2.4); ANION GAP 13.6 (7-21); BILIRUBIN, TOTAL 0.4 mg/dL (0.2-1.0); BUN/CREATININE RATIO 18.62 (6.0-28.6); CALCIUM 8.8 mg/dL (8.5-10.1); CREATININE, SERUM 1.02 mg/dL (0.70-1.30); MAGNESIUM 2.5 mg/dL (1.8-2.4); POTASSIUM 4.6 mmol/L (3.5-5.1); PROTEIN, TOTAL 7.3 g/dL (6.4-8.2)
[2024-06-14] MEDS ORDERED: LORazepam 1 MG TAB PO ONE (18:00)
[2024-06-14] MEDS ORDERED: GLUCAGON,HUMAN RECOMBINANT 1 MG/ML VIAL SUB-Q PRN (19:15)
[2024-06-14] MEDS ORDERED: GABAPENTIN 300 MG CAP PO ONE (19:15)
[2024-06-14] MEDS ORDERED: IBLOOD GLUCOSE TEST STRIP 1 EA TEST XX PRN (19:15)
[2024-06-14] MEDS ORDERED: ROPINIROLE HCL 1 MG TAB PO ONE (19:15)
[2024-06-14] MEDS ORDERED: ondansetron HCL 4 MG/2 ML VIAL IV PRN (19:15)
[2024-06-14] MEDS ORDERED: NICOTINE 21 MG/24 HR 1 EA TDSY TD PRN (19:15)
[2024-06-14] MEDS ORDERED: ACETAMINOPHEN 325 MG TAB PO PRN (19:15)
[2024-06-14] MEDS ORDERED: DEXTROSE 5% 1,000 ML IV PRN (19:15)
[2024-06-14] MEDS ORDERED: DEXTROSE 50% 50 ML SYR IV PRN ×2 (19:15)
[2024-06-14] MEDS ORDERED: BUDESONIDE 0.5 MG/2 ML VIAL INH SCH (20:07)
--- NOTE | 2024-06-14 20:57 | NUR ---
pt TRANSFERRED TO [place] WITH RNS PRATEEK AND CHERYL. THIS RN TRANSPORTS pt TO CT. pt SOB WITH SLIDE TRANSFER AND STAND PIVOT IN CT. 2L OXYGEN BY NC APPLIED. RT IN ROOM AT THIS TIME, SPO2 97% WITH 2L OXYGEN BY NC. pt REPORTS FEELING ANXIOUS, ASKS IF THERES ANYTHING TO HELP HIM RELAX AND SLEEP TONIGHT.
[2024-06-14] MEDS ORDERED: IBLOOD GLUCOSE TEST STRIP 1 EA TEST VI SCH (21:00)
[2024-06-14] MEDS ORDERED: INSULIN LISPRO 100 UNIT/ML ML SUB-Q SCH (21:00)
[2024-06-14] MEDS ORDERED: INSULIN GLARGINE-YFGN 100 UNIT/ML ML SUB-Q SCH (21:00)
[2024-06-14 21:16] VITALS: BP 176/80
[2024-06-14] MEDS ORDERED: AZITHROMYCIN 500 MG in DEXTROSE 5% 250 ML IV SCH (21:19)
[2024-06-14] MEDS ORDERED: DOCUSATE SODIUM 100 MG CAP PO SCH (21:27)
[2024-06-14] MEDS ORDERED: guaiFENesin 600 MG TABCR PO PRN (21:30)
[2024-06-14] MEDS ORDERED: NICOTINE POLACRILEX 4 MG LOZENGE BUCCAL PRN (21:45)
[2024-06-14] MEDS ORDERED: LOSARTAN POTASSIUM 100 MG TAB PO SCH (21:49)
[2024-06-14] MEDS ORDERED: AMLODIPINE BESYLATE 10 MG TAB PO SCH (21:50)
--- NOTE | 2024-06-14 21:53 | NUR ---
TC TO DR. SANCHEZ TO DISCUSS LUNG SOUNDS, BP AND PATIENT REQUEST FOR ANXIETY MEDICATION FOR SLEEP. DR. SANCHEZ TO PLACE ORDERS FOR LASIX, HOME BLOOD PRESSURE MEDICATION AND ANXIETY MEDICATION.
[2024-06-14] MEDS ORDERED: AZITHROMYCIN 500 MG VIAL ONE (21:57)
[2024-06-14] MEDS ORDERED: FUROSEMIDE 40 MG/4 ML VIAL IV ONE (22:00)
[2024-06-14] MEDS ORDERED: LORazepam 2 MG/ML VIAL IV PRN (22:00)
[2024-06-14 22:10] VITALS: BP 154/69
--- NOTE | 2024-06-14 22:30 | NUR ---
SCHEDULED MEDS ADMIN PER MAY. PATIENT SETTLED INTO BED AFTER USING URINAL AT BEDSIDE. ASSESSMENT COMPLETED, NC IN PLACE AT 2L. NO OTHER NEEDS IDENTIFIED, CALL LIGHT IN REACH.
--- NOTE | 2024-06-14 23:10 | NUR ---
RESPONDED TO BED ALARM, PATIENT ATTEMPTED TO STAND AT BEDSIDE TO VOID, PURWICK IN PLACE. PATIENT REMINDED THAT HE CAN VOID USING PURWICK AND DOES NOT HAVE TO STAND UP. COMPLETE BED LINEN CHANGE AND NEW GOWN GIVEN TO PATIENT DUE TO SPILL OF COFFEE AND WATER WHEN PATIENT ATTEMPTED TO STAND. PATIENT BOOSTED IN BED AND REPOSITIONED. NC REMAINS IN PLACE AT 2L. IV MEDICATION INFUSING PER ORDER. NO FURTHER NEEDS IDENTIFIED. CALL LIGHT IN REACH. BED ALARM ON.
[2024-06-14 23:32] LABS: INFLUENZA B NAA NEGATIVE (NEGATIVE); RESPIRATORY SYNCYTIAL VIR NAA NEGATIVE (NEGATIVE)
--- NOTE | 2024-06-14 23:57 | NUR ---
IV MEDICATION COMPLETE. IV SALINE LOCKED AT THIS TIME. PATIENT RESTING WITH EYES CLOSED, RESPIRATIONS EVEN, NAD. NO NEEDS IDENTIFIED, CALL LIGHT IN REACH.
[2024-06-15] VITALS (12 sets, daily range): BP systolic 120–167; BP diastolic 45–94
--- NOTE | 2024-06-15 00:48 | NUR ---
PATIENT RESTING WITH EYES CLOSED, RESP EVEN AND UNLABORED. NC IN PLACE AT 2L. NO NEEDS IDENTIFIED, BED ALARM ON. CALL LIGHT IN REACH.
--- NOTE | 2024-06-15 01:56 | NUR ---
VS OBTAINED AND RECORDED. CPOX IN PLACE. BREATHING TX GIVEN PRN FOR WHEEZING. RESPIRATIONS IN NAD. CALL LIGHT IN REACH. PATIENT BOOSTED IN BED AND RESPOSITIONED. NO NEEDS.
--- NOTE | 2024-06-15 03:40 | NUR ---
ROUNDED ON PATIENT, PATIENT REPORTS THAT HE HAS TO VOID. REMINDED PATIENT THAT HE HAS A PURWICK ON. PATIENT DENIES OTHER NEEDS, CALL LIGHT IN REACH.
--- NOTE | 2024-06-15 04:51 | NUR ---
PATIENT RESTING WITH EYES CLOSED, IN NAD. NO CHANGE IN RESPIRATORY STATUS. NC REMAINS AT 2L. CPOX AT BEDSIDE AND IN PLACE. NO NEEDS IDENTIFIED, CALL LIGHT IN REACH.
[2024-06-15 05:32] LABS: BASOPHILS 0.1 % (0-2); EOSINOPHILS 0.3 % (0-6); HEMATOCRIT 41.7 % (35.0-50.0); LYMPHOCYTES 2.5 % (24-44); MCH 32.1 (27-36); MCHC 33.7 g/dl (30-36); MCV 95.3 fl (81-99); MONOCYTES 0.3 % (0-12); NEUTROPHILS 96.8 % (39-80); RBC 4.37 M/ul (4.3-5.7); RDW 16.1 (10.5-15.0)
--- NOTE | 2024-06-15 05:42 | NUR ---
VS OBTAINED AND RECORDED. NC REMAINS IN PLACE AT 2L. RESPIRATORY ASSESSMENT REMAINS UNCHANGED. PATIENT BOOSTED IN BED, GIVEN FRESH WATER AND BLANKETS. DENIES NEEDS, CALL LIGHT IN REACH.
[2024-06-15 05:54] LABS: ALBUMIN 3.5 g/dL (3.4-5.0); ANION GAP 12.8 (7-21); BILIRUBIN, TOTAL 0.5 mg/dL (0.2-1.0); BUN/CREATININE RATIO 21.05 (6.0-28.6); CALCIUM 8.8 mg/dL (8.5-10.1); CREATININE, SERUM 1.14 mg/dL (0.70-1.30); MAGNESIUM 2.6 mg/dL (1.8-2.4); PHOSPHORUS, INORGANIC 3.5 mg/dL (2.5-4.9); POTASSIUM 4.8 mmol/L (3.5-5.1)
[2024-06-15 06:00] LABS: PLATELET COUNT 122 K/uL (140-440)
--- NOTE | 2024-06-15 06:44 | NUR ---
TC TO DR. SANCHEZ. PATIENT CALLED RN TO ROOM AND REPORTED PAIN AND FEELING LIKE HE HAD A FULL BLADDER, AND WAS UNABLE TO VOID. PROVIDER INFORMED THAT BLADDER SCAN SHOWED >1000ML URINE IN BLADDER. RECEIVED VERBAL ORDER FOR STRAIGHT CATH AT THIS TIME.
[2024-06-15] MEDS ORDERED: LIDOCAINE 2% VISCOUS 6 ML SYR TOP ONE (07:00)
--- NOTE | 2024-06-15 07:01 | NUR ---
STRAIGHT CATH COMPLETE USING STERILE PROCEDURE. PATIENT TOLERATED WELL. DENIES NEEDS. CALL LIGHT IN REACH.
--- NOTE | 2024-06-15 07:10 | NUR ---
REPORT RECEIVED FROM HENRY CHANDRA. SANDRA GROVE PRESENT TO REMOVE STRAIGHT CATHETER. PT IS ON 2LNC. BRICKLAYER APPRENTICE REMAINS IN ROOM AT THIS TIME.
--- NOTE | 2024-06-15 07:36 | NUR ---
PATIENT IN BED AT THIS TIME. TOW BAR DRIVER CHARTED PATIENTS BLOOD SUAGR AND THEN REMOVED PATIENTS UP CATHERTER PER RN CLARIBEL REQUEST. CALL LIGHT WITHIN REACH, NO FURTHER NEEDS AT THIS TIME.
--- NOTE | 2024-06-15 07:43 | NUR ---
STRAIGHT CATH DRAINS 1100CCs CLEAR, YELLOW URINE. PT TOLERATES WELL. PT REQUESTS WARM BLANKET - PROVIDED. NO OTHER REQUESTS, CALL LIGHT IN REACH.
[2024-06-15] MEDS ORDERED: ALBUTEROL/IPRATROPIUM 3 ML NEB INH SCH ×2 (08:00→12:00)
--- NOTE | 2024-06-15 08:16 | NUR ---
MEDICATION ADMINISTERED, SEE MAR. PT SITTING UP IN BED EATING BREAKFAST. ALERT AND ORIENTED, CONVERSING PLEASANTLY WITH THIS RN. 2LNC IN PLACE, CPOX AT BEDSIDE. PT HAS NO REQUESTS AT THIS TIME, CALL LIGHT IN REACH.
[2024-06-15] MEDS ORDERED: BUDESONIDE 0.5 MG/2 ML VIAL INH SCH ×2 (08:30→20:00)
[2024-06-15] MEDS ORDERED: NICOTINE 21 MG/24 HR 1 EA TDSY TD SCH (09:00)
[2024-06-15] MEDS ORDERED: methylPREDNISolone SOD SUCC 125 MG/2 ML VIAL IV SCH (09:00)
[2024-06-15] MEDS ORDERED: ENOXAPARIN SODIUM 40 MG/0.4 ML SYR SUB-Q SCH (09:00)
--- NOTE | 2024-06-15 09:36 | NUR ---
PATIENT IN BED AT THIS TIME. CLAM BED WORKER CHARTED VITALS AND I&O'S. CALL LIGHT WITHIN REACH, NO FURTHER NEEDS AT THIS TIME.
--- NOTE | 2024-06-15 09:46 | NUR ---
UR CLINICAL REVIEW: MCG-PER MCG REVIEW MEETS INPT FOR COPD WITH PERSISTENT DYPNEA AND TACHYPNEA [place] [facility] INPT 06/14/24 @ 1906 ORDER MATCHES REG NO AUTH REQUIRED PER [place] GUIDELINES.CLINICALS SENT FOR REVIEW ANTICIPATE DC IN 1-2 DAYS 06/17/24
--- NOTE | 2024-06-15 09:47 | NUR ---
RA TRIAL 90% AT REST AND 88% WITH EXERTION. HOME REGIMEN IS 2 LPM AT NIGHT AND PRN DURING DAY. RN AWARE AND WILL TITRATE.
--- NOTE | 2024-06-15 09:55 | NUR ---
ASSESSMENT COMPLETE. PT RESTING IN BED. RESPIRATORY THERAPY ALSO ARRIVES TO RE-ASSESS PT, PT PREVIOUSLY TITRATED TO RA WITH CPOX IN PLACE. PTs SPO2 BETWEEN 90-91% THROUGHOUT ASSESSMENT. AMISH FROM RESPIRATORY THERAPY SATISFIED WITH THIS. PT HAS NO COMPLAINTS OF PAIN BUT REPORTS HE IS FEELING SOME ANXIETY JUST FROM BEING IN THE HOSPITAL. PT IS RESTING IN BED ALERT AND ORIENTED, WATCHING TELEVISION AND APPEARS IN NO DISTRESS. REPORTS HIS SHORTNESS OF BREATH FEELS IT ALWAYS DOES, NOT EXACERBATED CURRENTLY. PT HAS CALL LIGHT AND PERSONAL BELONGINGS IN REACH, WAITING FOR TO ARRIVE, NO OTHER REQUESTS AT THIS TIME.
--- NOTE | 2024-06-15 10:02 | NUR ---
VISITED DURING SPIRITUAL CARE ROUNDS. PT UNSURE OF SUPERVISOR STERILE PROCESSING VISIT, WILL DISCUSS WITH WHEN SHE ARRIVES; INDICATED NO OTHER IMMEDIATE NEEDS. BOOKMOBILE DRIVER PROVIDED SUPPORTIVE PRESENCE, HOSPITALITY, PRAYER. PT EXPRESSED GRATITUDE FOR VISIT. WILL FOLLOW UP TO CONFIRM IF SUPERVISOR STERILE PROCESSING VISIT IS DESIRED.
--- NOTE | 2024-06-15 10:40 | NUR ---
Spoke with Pascual. He lives with his in a house with 2 steps and a ramp. He is a and is 10% service connected. He has [facility] in the home 3 x per week. He has a son, but does not want to burden him as he Parkinsons. Pt states he and share backrest assembler. They both drive. Pt has 02 from [place]. Pt denies any needs. They do not have any financial issues. Plans to dc to go home.
--- NOTE | 2024-06-15 10:54 | NUR ---
FRESH ICE WATER AND COFFEE PROVIDED. PT REMAINS ON RA, CPOX AT BEDSIDE 91%. PTs PRESENT VISITING. VALORIE WILLETT, PRESENT AND SPEAKING WITH PT. NO OTHER REQUESTS, CALL LIGHT AND PERSONAL BELONGINGS IN REACH.
--- NOTE | 2024-06-15 10:57 | NUR ---
FOLLOWED UP TO CONFIRM IF DRILLING MANAGER VISIT IS DESIRED. PT DECLINED DRILLING MANAGER VISIT FOR TODAY BUT SEEMED APOLOGETIC ABOUT THAT. BICYCLE REPAIRMAN PROVIDED ASSURANCE OF DIVINE JS, OFFERED TO FOLLOW UP TOMORROW FOR FURTHER CONVERSATION. PT AND ERIN PETERSEN EXPRESSED GRATITUDE.
--- NOTE | 2024-06-15 11:47 | NUR ---
PT REPORTS HE HAS VOIDED X3 THIS MORNING BUT HE IS WONDERING WHY HE HASN'T HEARD THE PUREWICK GOING. PUREWICK NOT IN PLACE AFTER MORNING STRAIGHT CATH, PT DID NOT REALIZE THIS. PTs GOWN, BLANKETS, CHUX, AND BRIEF CHANGED, [facility] PROVIDED, NEW BRIEF PLACED. PT UNDERSTANDS THAT HE DOES NOT HAVE THE PUREWICK ON AND VERBALIZES THAT HE WILL USE THE URINAL WHEN HE NEEDS TO VOID. SANDRA GROVE PRESENT TO ASSIST IN REPOSITIONING PT UP IN BED AND CHECK BLOOD SUGAR. PTs PRESENT IN ROOM THROUGHOUT. RT ARRIVES TO ASSESS AND TREAT PT. RT REMAINS IN ROOM AT THIS TIME.
[2024-06-15] MEDS ORDERED: PHARMACY RENAL DOSE ADJUSTMENT 1 DOSE MISC PO SCH (12:00)
--- NOTE | 2024-06-15 12:47 | NUR ---
PT USES URINAL WHILE STANDING AT BEDSIDE. PT STANDS WITH SBA ONLY. FINISHES VOIDING. PT AMBULATES FROM BEDSIDE TO RECLINER TO SIT UP AWHILE. CPOX REMAINS IN PLACE, LOWEST SPO2 DURING THIS AMBULATION IS 87%. IN RECLINER PT PUTS HIS OXYGEN BACK ON WITHOUT PROMPTING. SPO2 INCREASES TO 89% ON CPOX. PT CONTINUES TO CATCH HIS BREATH. WARM BLANKET PROVIDED, BLE ELEVATED ON A PILLOW. PT HAS NO OTHER REQUESTS AT THIS TIME. LUNCH TRAY REMOVED. CALL LIGHT AND PERSONAL BELONGINGS IN REACH.
--- NOTE | 2024-06-15 13:22 | NUR ---
PATIENT IN CHAIR AT THIS TIME. AUTO WINDER CHARTED VITALS AND I&O'S. CALL LIGHT WITHIN REACH, NO FURTHER NEEDS AT THIS TIME.
--- NOTE | 2024-06-15 13:37 | NUR ---
PT RESTING IN RECLINER WITH EYES CLOSED, RR EVEN AND UNLABORED, MOUTH OPEN. PT IS ON RA WITH CPOX AT CHAIRSIDE SUSTAINING>90%. CALL LIGHT IN LAP.
--- NOTE | 2024-06-15 14:27 | NUR ---
PT UP IN RECLINER WITH BLE ELEVATED. RESTING, BUT WAKES WHEN THIS RN ENTERS. PT IS AWAKE AND ALERT, CONVERSING PLESANTLY WITH THIS RN. LUNG SOUNDS CLEAR BUT DIMINISHED THROUGHOUT. PT IS ON ROOM AIR WITH CPOX AT CHAIRSIDE, DENIES SHORTNESS OF BREATH OR CHEST TIGHTNESS. IV TO R AC FLUSHES WNL, SALINE LOCKED. PT REQUESTS URINAL USE. PT STANDS WITH SBA ONLY, VOIDS IN URINAL, AND SITS BACK INTO RECLINER. CPOX SUSTAINS 90% THROUGHOUT STAND, PT APPLIES 2LNC UPON SITTING, REPORTS HE WILL WEAR THIS FOR "JUST A LITTLE BIT". BLE ELEVATED IN RECLINER, PT DECLINES PILLOW BENEATH HIS FEET, WARM BLANKET PROVIDED. PT HAS NO OTHER REQUESTS, CALL LIGHT AND PERSONAL BELONGINGS IN REACH.
[2024-06-15] MEDS ORDERED: MICONAZOLE 2% 30 GM TUBE TOP SCH (15:00)
--- NOTE | 2024-06-15 15:32 | NUR ---
PT IN RECLINER WITH TWO VISITORS PRESENT, REQUESTING THE URINAL. PT STANDS AT RECLINER WITH SBA ONLY, VOIDS IN URINAL, AND SITS BACK DOWN. PT WANTS TO SIT WITH HIS LEGS DOWN FOR NOW. REQUESTING A SNACK - PROVIDED. NO OTHER REQUESTS, CALL LIGHT AND PERSONAL BELONGINGS IN REACH, VISITORS REMAIN IN ROOM.
--- NOTE | 2024-06-15 16:27 | NUR ---
PT AMBULATES WITH SBA FROM RECLINER TO BED. FRESH WARM BLANKETS PROVIDED. PTs SON AT BEDSIDE. NO REQUESTS, CALL LIGHT IN REACH.
--- NOTE | 2024-06-15 18:01 | NUR ---
PATIENT IN BED AT THIS TIME. VP SOFTWARE ENGINEERING CHARTED I&O'S, RN CLARIBEL CHARTED VITALS. CALL LIGHT WITHIN REACH, NO FURTHER NEEDS AT THIS TIME.
--- NOTE | 2024-06-15 18:24 | NUR ---
MEDICATION ADMINISTERED, SEE MAR. PT REQUESTING HIS BLINDS BE LOWERED - DONE. PT HAS NO OTHER REQUESTS AT THIS TIME, CALL LIGHT AND PERSONAL BELONGINGS IN REACH.
[2024-06-15] MEDS ORDERED: ROPINIROLE HCL 1 MG TAB PO SCH (19:00)
[2024-06-15] MEDS ORDERED: GABAPENTIN 600 MG TAB PO SCH (19:00)
--- NOTE | 2024-06-15 19:26 | NUR ---
PATIENT RESTING IN BED, TALKING WITH AT BEDSIDE. DENIES ANY NEEDS, CALL LIGHT IN REACH.
--- NOTE | 2024-06-15 20:22 | NUR ---
ROSIE IS AWAKE ON A 2L NC WITH HOB ELEVATED TO 36 DEGREES WATCHING TV.
[2024-06-15] MEDS ORDERED: AZITHROMYCIN 500 MG VIAL ONE (20:41)
--- NOTE | 2024-06-15 20:57 | NUR ---
EMBEDDED SOFTWARE DESIGN ENGINEER AND RN IN ROOM. EMBEDDED SOFTWARE DESIGN ENGINEER BLADDER SCANNED PT AT RN REQUEST. BLADDER SCAN SHOWED 80ML. RN NOTIFED.
--- NOTE | 2024-06-15 21:35 | NUR ---
PATIENT RESTING IN BED. VS AND I&Os OBTAINED AND RECORDED. SCHEDULED MEDICATIONS ADMINISTERED. IV FLUSHES WNL. PATIENT REQUESTING ANXIETY MEDICATION. PRN MEDICATION ADMINISTERED. BED ALARM ON. CALL LIGHT IN REACH.
--- NOTE | 2024-06-15 22:39 | NUR ---
PATIENT WOKE TO RN ENTERING ROOM, IV MEDICATION COMPLETED. PATIENT IV SALINE LOCKED. DENIES FURTHER NEEDS, BED ALARM ON, CALL LIGHT IN REACH
[2024-06-16] VITALS (8 sets, daily range): BP systolic 140–147; BP diastolic 64–87
--- NOTE | 2024-06-16 00:52 | NUR ---
PATIENT RESTING WITH EYES CLOSED, RESP EVEN AND UNLABORED. NC IN PLACE 2L, ON CPOX. NO NEEDS IDENTIFIED, CALL LIGHT IN REACH
--- NOTE | 2024-06-16 01:49 | NUR ---
RESPONDED TO BED ALARM, PATIENT REPORTS HAVING TO VOID. STOOD AT BEDSIDE WITH MINIAL SBA TO USE URINAL. RETURNED TO BED, BED ALARM ON. NC IN PLACE AT 2L, CPOX ON AND AT BEDSIDE. PATIENT DENIES FURTHER NEEDS, CALL LIGHT IN REACH
--- NOTE | 2024-06-16 04:21 | NUR ---
ROSIE IS ASLEEP ON A 2L NC. HE ASKED TO NOT BE AWOKEN FOR BREATHING TREATMENTS.
--- NOTE | 2024-06-16 04:34 | NUR ---
ROUNDED ON PATIENT, RESTING WITH EYES CLOSED, RESPIRATIONS EVEN AND UNLABORED, UNCHANGED RESP. STATUS. NO NEEDS IDENTIFIED, CALL LIGHT IN REACH.
--- NOTE | 2024-06-16 04:55 | NUR ---
CALL LIGHT ANSWERED, PATIENT VOIDED USING URINAL WITH SBA BY SANDRA LEVY. VS OBTAINED AND RECORDED. PATIENT REQUESTED BREATHING TX, RT CONTACTED. PATIENT GIVEN WARM BLANKET. NO OTHER NEEDS VOICED, CALL LIGHT IN REACH
[2024-06-16 05:59] LABS: BASOPHILS 0.2 % (0-2); HEMATOCRIT 41.1 % (35.0-50.0); HEMOGLOBIN 13.9 g/dL (12.0-18.0); LYMPHOCYTES 3.3 % (24-44); MCH 32.2 (27-36); MCHC 33.9 g/dl (30-36); MCV 94.8 fl (81-99); MONOCYTES 1.6 % (0-12); NEUTROPHILS 94.9 % (39-80); PLATELET COUNT 112 K/uL (140-440); RBC 4.33 M/ul (4.3-5.7); RDW 16.1 (10.5-15.0)
[2024-06-16 06:04] LABS: ALBUMIN 3.2 g/dL (3.4-5.0); ALBUMIN/GLOBULIN RATIO 1.03 (1.1-2.4); ANION GAP 11.5 (7-21); BILIRUBIN, TOTAL 0.3 mg/dL (0.2-1.0); BUN/CREATININE RATIO 29.62 (6.0-28.6); CALCIUM 8.6 mg/dL (8.5-10.1); CREATININE, SERUM 1.08 mg/dL (0.70-1.30); POTASSIUM 4.5 mmol/L (3.5-5.1); PROTEIN, TOTAL 6.3 g/dL (6.4-8.2)
--- NOTE | 2024-06-16 07:18 | NUR ---
REPORT RECEIVED FROM HENRY CHANDRA. PT RESTING IN BED WITH HOB ELEVATED, EYES CLOSED, RR EVEN AND UNLABORED WITH CPOX AT BEDSIDE AND 2LNC IN PLACE. CALL LIGHT AND PERSONAL BELONGINGS IN REACH.
--- NOTE | 2024-06-16 08:12 | NUR ---
MEDICATION ADMINISTERED, SEE MAY. PT SITTING ON EDGE OF BED, ON ROOM AIR, CPOX IN PLACE. SANDRA CHEN ARRIVES TO TAKE PTs WEIGHT AND SET HIM UP FOR BREAKFAST. SANDRA CHEN REMAINS IN ROOM AT THIS TIME.
[2024-06-16] MEDS ORDERED: NYSTATIN15 GM TOP (08:45)
[2024-06-16] MEDS ORDERED: PREDNISONE5 MG PO (08:46)
[2024-06-16] MEDS ORDERED: ASPIRIN 81 MG TABEC PO SCH (09:00)
--- NOTE | 2024-06-16 10:04 | NUR ---
ASSESSMENT COMPLETE. PT RESTING IN BED WITH HOB ELEVATED, BREAKFAST TRAY FINISHED AND REMOVED. PT IS CURRENTLY WEARING HIS NC AT 2L, REPORTS MILD SHORTNESS OF BREATH UNCHANGED FROM HIS USUAL. CPOX AT BEDSIDE. PT REPORTS HIS COUGH HAS TURNED PRODUCTIVE AND HE IS HAVING A SMALL AMOUNT OF THICK SPUTUM, NOT WITNESSED BY THIS RN. PT REPORTS HE FEELS HE IS ABLE TO BREATHE BETTER WHEN SITTING UP AND SITS UP ON EDGE OF BED. IV TO PTs R AC FLUSHES WNL, SALINE LOCKED. PT DENIES PAIN OR DISCOMFORT AT THIS TIME. SANRDA APRIL ARRIVES AND SETS PT UP TO BRUSH HIS TEETH WHICH HE DOES INDEPENDENTLY. AFTER BRUSHING TEETH, PT DOES FINALLY EXPECTORATE INTO EMESIS BAG, THICK WHITE SECRETIONS. PT REPORTS FEELING HIS BREATHING IMPROVES AFTER CLEARING THIS. PT USES ACAPELLA X10. PT HAS NO OTHER REQUESTS, CALL LIGHT AND PERSONAL BELONGINGS IN REACH.
--- NOTE | 2024-06-16 10:30 | NUR ---
Spoke with Pascual. He denies needs. Plans for dc to home when cleared medically.
--- NOTE | 2024-06-16 10:32 | NUR ---
VISITED DURING SPIRITUAL CARE ROUNDS. PT ON PHONE SO SHORT VISIT. SPRINKLER IRRIGATION EQUIPMENT MECHANIC FACILITATED INTERACTION WITH THERAPY ANIMAL, PROVIDED PRAYER, PT EXPRESSED GRATITUDE.
--- NOTE | 2024-06-16 11:40 | NUR ---
PT STANDING AT NURSE'S STATION REQUESTING UPDATES ON PT. UPDATED ON PTs PLAN OF CARE AND WELL-BEING TODAY. ALL QUESTIONS ANSWERED AND CONCERNS ADDRESSED.
--- NOTE | 2024-06-16 11:41 | NUR ---
RESPIRATORY THERAPY IN WITH PT AT THIS TIME.
--- NOTE | 2024-06-16 12:37 | NUR ---
MEDICATION ADMINISTERED, SEE MAY. LUNCH TRAY REMOVED. PTs REPORTS THAT PT HAS BEEN EXPECTORATING LARGE AMOUNTS OF THICK WHITE SPUTUM. PT REQUESTS FRESH CUP OF COFFEE -PROVIDED. NO OTHER REQUESTS, PTs REMAINS VISITING IN ROOM. CALL LIGHT AND PERSONAL BELONGINGS IN REACH, 2LNC IN PLACE AND CPOX AT BEDSIDE.
--- NOTE | 2024-06-16 14:58 | NUR ---
AFTER DID HIS TWO CLOCK VITALS. PATIENT WANTED TO SIT UP IN HIS CHAIR. I PUT A CHAIR ALARM ON AND BLANKET AND LETTY ON THE CHAIR. CHANGED BED LINENS.
--- NOTE | 2024-06-16 16:03 | NUR ---
PT RESTING UP IN RECLINER WITH BLE ELEVATED, AWAKE AND ALERT WATCHING TELEVISION. 2LNC IN PLACE, CPOX AT CHAIRSIDE. PT LUNG SOUNDS HAVE EXPIRATORY WHEEZES THROUGHOUT AND COARSE TO BUL. PT DENIES SHORTNESS OF BREATH, REPORTS HE IS FEELING BETTER. HE EXPLAINS HE IS CONTINUING TO EXPECTORATE SPUTUM THOUGH THIS IS DIFFICULT AND HE HAS TO WORK AT IT. PT DENIES PAIN OR DISCOMFORT. IF TO R FOREARM FLUSHES WNL, SALINE LOCKED. FRESH ICE WATER AND COFFEE PROVIDED. PT HAS NO OTHER REQUESTS, CALL LIGHT AND PERSONAL BELONGINGS IN REACH.
--- NOTE | 2024-06-16 16:38 | NUR ---
RESPIRATORY THERAPY IN WITH PT AT THIS TIME.
--- NOTE | 2024-06-16 17:58 | NUR ---
medications reconiciled using pharmacy records
--- NOTE | 2024-06-16 19:53 | NUR ---
REPORT RECEIVED FROM DAY SHIFT RN. PATIENT RESTING IN BED WATCHING TV. DENIES NEEDS AT THIS TIME. CALL LIGHT IN REACH.
--- NOTE | 2024-06-16 19:58 | NUR ---
ROSIE IS AWAKE SITTING UP IN BED ON A 2L NC W/HOB ELEVATED TO 24 DEGREES. ROSIE REFUSED HIS BREATHING TREATMENTS THAT ARE DUE AT 1999.
--- NOTE | 2024-06-16 20:34 | NUR ---
PIN GAME MACHINE INSPECTOR OBTAINED VITALS AND I&O. PT STATES NO NEEDS AT THIST JAVIER. CALL LIGHT WITHIN REACH AND BED ALARM ON.
[2024-06-16] MEDS ORDERED: AZITHROMYCIN 500 MG VIAL ONE (20:51)
--- NOTE | 2024-06-16 21:25 | NUR ---
PATIENT RESTING IN BED. SCHEDULED MEDICATION ADMINISTERED. PRN MEDICATION ADMINSITERED PER PATIENT REQUEST. IV FLUSHES WNL. ASSESSMENT COMPLETE. BED ALARM ON. CALL LIGHT IN REACH. CPOX IN PLACE.
--- NOTE | 2024-06-16 22:20 | EKG ---
[facility] [address] [place] [address] Signed Normal sinus rhythm Left axis deviation Nonspecific ST abnormality Abnormal ECG When compared with ECG of 14-MAY-2024 20:17, No significant change was found Confirmed by Bertha Sanchez MD () on 06/16/2024 10:20:37 PM Electronically Signed By: BERTHA SANCHEZ MD 06/16/242219 PATIENT NAME: ROSIE JANE Electrocardiogram DATE OF : 43 PHYSICIAN: BERTHA SANCHEZ MD REPORT #: [id number] REPORT IS CONFIDENTIAL AND NOT TO BE RELEASED WITHOUT AUTHORIZATION
--- NOTE | 2024-06-16 23:44 | NUR ---
PATIENT RESTING IN BED. RESPIRATIONS EVEN AND UNLABORED. CALL LIGHT IN REACH.
--- NOTE | 2024-06-17 01:15 | NUR ---
PATIENT RESTING IN BED ON BACK WITH EYES CLOSED. RESPIRATIONS EVEN AND UNLABORED. CALL LIGHT IN REACH.
--- NOTE | 2024-06-17 03:16 | NUR ---
PATIENT RESTING IN BED ON BACK WITH EYES CLOSED. RESPIRATIONS EVEN AND UNLABORED. CALL LIGHT IN REACH.
[2024-06-17 03:57] VITALS: BP 149/74
[2024-06-17 04:03] VITALS: BP 149/74
--- NOTE | 2024-06-17 04:06 | NUR ---
BED ALARM, ALARMING. PATIENT TRYING TO GET OUT OF BED TO USE URINAL. PATIENT UP AT BEDSIDE USING MINIMAL SBA TO VOID. PATIENT BACK TO BED. VS AND I&Os OBTAINED AND RECORDED. PATIENT REPOSTIONED IN BED. PATIENT DENIES FURTHER NEEDS AT THIS TIME. CALL LIGHT IN REACH. BED ALARM ON.
[2024-06-17 04:34] VITALS: BP 134/66
--- NOTE | 2024-06-17 04:36 | NUR ---
PT STATED NEED TO USE BATHROOM. PUTTER IN 1PA PT TO STAND AT BED SIDE AND USE URINAL. PT VOIDED AND OUTPUT MEASURED. PT STANDING WEIGHT OBTAINED. PT ASSISTED BACK INTO BED. VITALS AND I&O OBTAINED AND DOCUMENTED. PT STATE SNO FURTHER NEEDS AT THIS TIME. CALL LIGHT WITHIN REACH AND BED ALARM ON.
[2024-06-17 05:40] LABS: BASOPHILS 0.2 % (0-2); HEMATOCRIT 40.4 % (35.0-50.0); HEMOGLOBIN 13.9 g/dL (12.0-18.0); LYMPHOCYTES 2.4 % (24-44); MCH 31.9 (27-36); MCHC 34.3 g/dl (30-36); MCV 93.1 fl (81-99); MONOCYTES 1.6 % (0-12); NEUTROPHILS 95.8 % (39-80); PLATELET COUNT 115 K/uL (140-440); RBC 4.34 M/ul (4.3-5.7); RDW 16.2 (10.5-15.0)
[2024-06-17 06:04] LABS: ALBUMIN 3.1 g/dL (3.4-5.0); ALBUMIN/GLOBULIN RATIO 1.03 (1.1-2.4); ANION GAP 11.5 (7-21); BILIRUBIN, TOTAL 0.3 mg/dL (0.2-1.0); BUN/CREATININE RATIO 32.47 (6.0-28.6); CALCIUM 8.2 mg/dL (8.5-10.1); CREATININE, SERUM 1.17 mg/dL (0.70-1.30); POTASSIUM 4.5 mmol/L (3.5-5.1); PROTEIN, TOTAL 6.1 g/dL (6.4-8.2)
--- NOTE | 2024-06-17 06:39 | NUR ---
CALL LIGHT ANSWERED. PT NEEDED TO USE BATHROOM. TREE FELLER 1PA PT TO STAND AT BEDSIDE AND USE URINAL. PT VOIDED AND ASSISTED BACK INTO BED. PT STATES NO FURTHER NEEDS AT THIS TIME. CALL LIGHT WITHIN REACH AND BED ALARM ON.
--- NOTE | 2024-06-17 07:08 | NUR ---
REPORT RECEIVED FROM HENRY LUNA. PT RESTING IN BED WITH EYES CLOSED, WAKES WHEN THIS RN ENTERS. PT REQUESTING COFFEE. 2LNC IN PLACE WITH CPOX AT BEDSIDE. SANDRA LEVY SUPPLIES COFFEE. NO OTHER REQUESTS, CALL LIGHT AND PERSONAL BELONGINGS IN REACH.
[2024-06-17] MEDS ORDERED: ALBUTEROL/IPRATROPIUM 3 ML NEB INH SCH (08:00)
[2024-06-17 09:30] VITALS: BP 140/66
--- NOTE | 2024-06-17 09:30 | NUR ---
Spoke with Pascual. He plans on returning home with when stable. He would like to leave today. Let him know he will need to discuss this with Dr. Noble. He denies any needs to go home.
[2024-06-17 09:31] VITALS: BP 140/66
[2024-06-17 09:32] LABS: HEPATITIS B SURFACE ANTIGEN Negative (Negative)
--- NOTE | 2024-06-17 09:34 | NUR ---
THIS RN IN ROOM TO ADMINISTER SCHEDULED AM MEDICATIONS. PT DENIES RN TO APPLY SCHEDULED CREAM - STATES WILL APPLY "ONCE SHE GETS HERE". LEFT FOREARM IV SITE PATENT. VS STABLE, I/O CHARTED. ROOM TIDIED AND FRESH COFFEE PROVIDED. CALL LIGHT IN REACH.
--- NOTE | 2024-06-17 10:19 | NUR ---
ASSESSMENT COMPLETE. PT AMBULATES FROM BED TO RECLINER WITH SBA ONLY, MANAGES HIS OXYGEN AND CPOX LINES INDEPENDENTLY. WARM BLANKETS PROVIDED. PT LUNG SOUNDS HAVE WHEEZES THROUGHOUT, MILD CRACKLES IN BILAT BASES. PT REPORTS HE DOES HAVE SHORTNESS OF BREATH, WORSE WITH AMBULATION BUT RECOVERS QUICKLY WITH REST. PT HAS WORN 2LNC ALL MORNING TODAY. NO COMPLAINTS OF DISCOMFORT OR PAIN. PT HAS NO REQUESTS, CALL LIGHT AND PERSONAL BELONGINGS IN REACH BY RECLINER.
--- NOTE | 2024-06-17 11:07 | NUR ---
VISITED DURING SPIRITUAL CARE ROUNDS. PT SITTING IN CHAIR WITH LIGHTS OFF, TELEVISION ON. DECLINED OFFER OF LIGHTS ON, STATED "TRYING TO SLEEP." PT EXPRESSED DESIRE TO GO HOME, HOPE OF DOCTOR ARRIVING SOON TO FACILITATE THAT. GARAGE ATTENDANT PROVIDED SUPPORTIVE PRESENCE, HOSPITALITY, PRAYER. PT EXPRESSED GRATITUDE FOR VISIT.
--- NOTE | 2024-06-17 11:32 | NUR ---
PATIENT SET UP ON THE SIDE OF HIS BED FOR BREAKFAST. PATIENT WASHED HIS FACE. SAID HE WILL BRUSH HIS TEETH AFTER BREAKFAST.
--- NOTE | 2024-06-17 12:28 | NUR ---
MEDICATION ADMINISTERED, SEE MAR. PT UP IN RECLINER EATING LUNCH, PRESENT ON COUCH. PT HAS NO REQUESTS AT THIS TIME, CALL LIGHT AND PERSONAL BELONGINGS IN REACH.
[2024-06-17] MEDS ORDERED: ANTIFUNGAL CRE141 GM TOP (13:03)
[2024-06-17] MEDS ORDERED: ATIVAN1 MG PO (13:04)
[2024-06-17] MEDS ORDERED: PREDNISONE20 MG PO (13:05)
[2024-06-17 13:20] VITALS: BP 138/66
--- NOTE | 2024-06-17 13:44 | NUR ---
UR CLINICAL REVIEW: MCG-PER MCG REVIEW INPT FOR COPD WITH PERSISTENT DYPNEA AND TACHYPNEA, MEETS [place] [facility] 06/14/24 @ 1906 ORDER MATCHES REG NO AUTH REQUIRED PER [place] GUID[place]INES.CLINICALS SENT FOR REVIEW DC TODAY.
[2024-06-17 15:54] LABS: HIV 1,2 COMBO ANTIGEN/ANTIBODY Negative (Negative)
[2024-06-17 16:50] LABS: HEPATITIS C AB CIA INTERP Negative (Negative); HEPATITIS C ANTIBODY CIA INDEX 0.03 IV (())
== END 2024-06-17 13:45 | disposition home or self-care (01) | DRG 191 ==
LOC: ED 16:10 → MS 19:30
PROVIDERS: Emergency Medicine; ADMIT Family Medicine; ATTEND Family Medicine
DX: J43.2 Centrilobular emphysema (principal); J44.1 Chronic obstructive pulmonary disease with (acute) exacerbation; G25.81 Restless legs syndrome; R33.9 Retention of urine, unspecified; I10 Essential (primary) hypertension; F17.210 Nicotine dependence, cigarettes, uncomplicated; B35.6 Tinea cruris; E78.00 Pure hypercholesterolemia, unspecified; G47.00 Insomnia, unspecified; E11.9 Type 2 diabetes mellitus without complications; Z71.6 Tobacco abuse counseling; Z88.8 Allergy status to other drugs, medicaments and biological substances; Z88.1 Allergy status to other antibiotic agents; Z85.07 Personal history of malignant neoplasm of pancreas; Z98.890 Other specified postprocedural states; Z79.02 Long term (current) use of antithrombotics/antiplatelets; Z79.899 Other long term (current) drug therapy; Z79.4 Long term (current) use of insulin; Z79.84 Long term (current) use of oral hypoglycemic drugs; Z79.82 Long term (current) use of aspirin
CPT/HCPCS: 36415; 51701; 51798; 71045; 71260; 80053; 83735; 83880; 84100; 84484; 85025; 85060; 86803; 87340; 87502; 93005; 93010; 94640; 94668; 94762; 94799; 99406; A9270; A9270-GY; J0456; J1650; J1815; J1940; J2060; J2919; J7060; Q9967; U0002

== ENCOUNTER 2024-09-07 16:27 | Emergency (ER) | payer OTHER, MEDICARE ==
[~2024-09-07] VITALS: Ht 175.3 cm; Wt 62.2 kg
[~2024-09-07 16:27] MED LIST changes: +ANTIFUNGAL CRE141 GM TOP; +ATIVAN1 MG PO; +NYSTATIN15 GM TOP; +PREDNISONE5 MG PO
[2024-09-07] MEDS ORDERED: ALBUTEROL/IPRATROPIUM 3 ML NEB INH PRN (16:45)
[2024-09-07] MEDS ORDERED: FUROSEMIDE 40 MG/4 ML VIAL IV ONE (17:15)
[2024-09-07 17:21] LABS: PH, VENOUS 7.37 (7.31-7.41)
[2024-09-07 17:23] LABS: BASOPHILS 0.6 % (0.2-1.2); EOSINOPHILS 5.1 % (0.8-7.0); HEMATOCRIT 43.8 % (40.1-51.0); HEMOGLOBIN 14.1 g/dL (13.7-17.5); LYMPHOCYTES 14.4 % (21.8-53.1); MCH 31.5 PG (25.7-32.2); MCHC 32.2 g/dL (32.3-36.5); MCV 97.8 fL (79.0-92.2); MONOCYTES 8.9 % (5.3-12.2); NEUTROPHILS 70.7 % (34.0-67.9); PLATELET COUNT 146 K/uL (163-337); RBC 4.48 M/uL (4.63-6.08)
[2024-09-07 17:45] LABS: ALBUMIN 3.5 g/dL (3.4-5.0); ALBUMIN/GLOBULIN RATIO 1.03 (1.1-2.4); ANION GAP 11.4 (7-21); BILIRUBIN, TOTAL 0.4 mg/dL (0.2-1.0); BUN/CREATININE RATIO 12.72 (6.0-28.6); CALCIUM 9.1 mg/dL (8.5-10.1); CREATININE, SERUM 1.1 mg/dL (0.70-1.30); MAGNESIUM 2.2 mg/dL (1.8-2.4); POTASSIUM 4.4 mmol/L (3.5-5.1); PROTEIN, TOTAL 6.9 g/dL (6.4-8.2)
[2024-09-07] MEDS ORDERED: ALBUTEROL/IPRATROPIUM 3 ML NEB INH ONE (19:00)
[2024-09-07] MEDS ORDERED: methylPREDNISolone SOD SUCC 125 MG/2 ML VIAL IV ONE (19:00)
[2024-09-07] MEDS ORDERED: ROPINIROLE HCL 1 MG TAB PO ONE (20:00)
[2024-09-07] MEDS ORDERED: POTASSIUM CHLO20 ME2 PO (21:12)
[2024-09-07] MEDS ORDERED: LASIX40 MG PO (21:12)
[2024-09-07 21:30] VITALS: BP 136/70
--- NOTE | 2024-09-09 14:05 | EKG ---
[facility] [address] [place] [address] Signed Sinus rhythm with premature atrial complexes Left axis deviation Abnormal ECG When compared with ECG of 14-JUN-2024 16:20, premature atrial complexes are now present ST less depressed in Inferior leads Confirmed by Fredi Britton MD ([id number]) on 09/09/2024 2:05:16 PM Electronically Signed By: FREDI BRITTON MD 09/09/245 PATIENT NAME: ROSIE JANE Electrocardiogram DATE OF : 43 PHYSICIAN: FREDI BRITTON MD REPORT #: [id number] REPORT IS CONFIDENTIAL AND NOT TO BE RELEASED WITHOUT AUTHORIZATION
== END 2024-09-07 21:30 | disposition home or self-care (01) ==
LOC: ED 16:27
PROVIDERS: Emergency Medicine
DX: J44.1 Chronic obstructive pulmonary disease with (acute) exacerbation (principal); E11.649 Type 2 diabetes mellitus with hypoglycemia without coma; I10 Essential (primary) hypertension; Z88.8 Allergy status to other drugs, medicaments and biological substances; Z79.899 Other long term (current) drug therapy
CPT/HCPCS: 36415; 71045; 80053; 82803; 83735; 83880; 84484; 85025; 93005; 93010; 94640; 96374; 96375; 99285-25; J1938; J2919

== ENCOUNTER 2024-10-12 16:47 | Observation (INO) | payer OTHER, MEDICARE ==
[~2024-10-12] VITALS: Ht 175.3 cm; Wt 60.9 kg
[~2024-10-12 16:47] MED LIST changes: +FERROUS GLUCON324 M1 PO; -IRON325 M1 PO; +LASIX40 MG PO; -METFORMIN HCL500 M3 PO; +POTASSIUM CHLO20 ME2 PO
[2024-10-12 17:02] LABS: BASOPHILS 0.3 % (0.2-1.2); EOSINOPHILS 3.7 % (0.8-7.0); LYMPHOCYTES 11.7 % (21.8-53.1); MCH 32.2 PG (25.7-32.2); MCHC 33.2 g/dL (32.3-36.5); MCV 97.1 fL (79.0-92.2); MONOCYTES 9.4 % (5.3-12.2); NEUTROPHILS 74.6 % (34.0-67.9); RBC 4.10 M/uL (4.63-6.08)
[2024-10-12 17:20] LABS: ALT (SGPT) 32.0 U/L (14-59); AST (SGOT) 21.0 U/L (15-37); GLOMERULAR FILTRATION RATE,EST 78.0 mL/min (>60); PROTEIN, TOTAL 6.4 g/dL (6.4-8.2); UREA NITROGEN 14.0 mg/dL (7-18)
[2024-10-12] MEDS ORDERED: ALBUTEROL/IPRATROPIUM 3 ML NEB INH ONE (17:45)
[2024-10-12] MEDS ORDERED: IBLOOD GLUCOSE TEST STRIP 1 EA TEST XX PRN (19:30)
[2024-10-12] MEDS ORDERED: GLUCAGON,HUMAN RECOMBINANT 1 MG/ML VIAL SUB-Q PRN (19:30)
[2024-10-12] MEDS ORDERED: DEXTROSE 5% 1,000 ML IV PRN (19:30)
[2024-10-12] MEDS ORDERED: DEXTROSE 50% 50 ML SYR IV PRN ×2 (19:30)
[2024-10-12] MEDS ORDERED: ACETAMINOPHEN 325 MG TAB PO PRN (19:30)
--- NOTE | 2024-10-12 20:06 | NUR ---
pt ARRIVED FROM ED WITH ED RN CJ, pt UP AND STOOD PIVOT TO MS BED-STEADY ON FEET. A/O, VSS. ADMISSION COMPLETED, pt ORIENTED TO ROOM AND POC FOR THE SHIFT. QUESTIONS ANSWERED. pt REPORTS SOME ANXIETY, ASKING IF THERE IS SOMETHING AVAILABLE, PRIMARY RN MADE AWARE. RT AT BEDSIDE COMPLETING EVAL. pt DENIES ADDITIONAL NEEDS OR CONCERNS, CALL LIGHT IN REACH.
--- NOTE | 2024-10-12 20:10 | NUR ---
REPORT RECEIVED FROM JOINT TERMINAL ATTACK CONTROLLER. pt BROUGHT TO NV VIA STRETCHER AND ABLE TO TRANSFER VIA PIVOT TO BED. IV ASSESSED, WNL. ASSESSMENT AND ADMISSION DONE. COARSE LUNG SOUNDS THROUGH OUT ALL LOBES. pt ON RA AT THIS TIME. pt STATES HE WEARS 3L AT NIGHT. CPOX PLACED ON DUE TO COPD. WATER REFRESHED. AND SNACK PROVIDED. pt DENIES ANY OTHER NEEDS AT THIS TIME. CALL LIGHT WITHIN REACH.
[2024-10-12 20:12] VITALS: BP 161/77
--- NOTE | 2024-10-12 20:45 | NUR ---
pt BG CHECK WITH A RESULTS OF 141. SS INSULIN ADMINISTERED. DENIES ANY OTHER NEEDS AT THIS TIME. CALL LIGHT WITHIN REACH.
[2024-10-12] MEDS ORDERED: BUDESONIDE 0.5 MG/2 ML VIAL INH SCH (20:59)
[2024-10-12] MEDS ORDERED: ALBUTEROL/IPRATROPIUM 3 ML NEB INH PRN (21:00)
[2024-10-12] MEDS ORDERED: INSULIN LISPRO 100 UNIT/ML ML SUB-Q SCH (21:00)
[2024-10-12] MEDS ORDERED: IBLOOD GLUCOSE TEST STRIP 1 EA TEST VI SCH (21:00)
[2024-10-12] MEDS ORDERED: LORazepam 0.5 MG TAB PO PRN (21:00)
--- NOTE | 2024-10-12 21:32 | NUR ---
PRN ATIVAN GIVEN PER pt REQUEST FOR REPORTED ANXIETY-SEE EMAR. SUGAR FREE SODA ALSO PROVIDED. PRIMARY RN UPDATED AND AWARE, CALL LIGHT IN REACH.
--- NOTE | 2024-10-12 23:21 | EKG ---
[facility] [address] [place] [address] Signed Normal sinus rhythm Left axis deviation Abnormal ECG When compared with ECG of 07-SEP-2024 16:49, premature atrial complexes are no longer present Confirmed by Bertha Sanchez MD () on 10/12/2024 11:21:01 PM Electronically Signed By: BERTHA SANCHEZ MD 10/12/242320 PATIENT NAME: ROSIE JANE Electrocardiogram DATE OF : 43 PHYSICIAN: BERTHA SANCHEZ MD REPORT #: [id number] REPORT IS CONFIDENTIAL AND NOT TO BE RELEASED WITHOUT AUTHORIZATION
[2024-10-12] MEDS ORDERED: AZITHROMYCIN 500 MG in DEXTROSE 5% 250 ML IV SCH (23:33)
[2024-10-13] VITALS (7 sets, daily range): BP systolic 132–151; BP diastolic 66–76
[2024-10-13] MEDS ORDERED: AZITHROMYCIN 500 MG in DEXTROSE 5% 250 ML IV SCH (01:30)
--- NOTE | 2024-10-13 01:36 | NUR ---
WEATHER ALGORITHM SCIENTIST OBTAINED VITALS AND I&O. PT STATES NO NEEDS AT THIS TIME. CALL LIGHT WITHIN REACH.
--- NOTE | 2024-10-13 02:00 | NUR ---
IV ABX INFUSED PER ORDER. pt STOOD AT BED SIDE TO USE THE URINAL. pt PUT 3LNC ON PER HIS HOME ROUTINE. pt DENIES ANY OTHER NEEDS AT THIS TIME. CALL LIGHT WITHIN REACH. pt STATES HE WEARS 3L AT NIGHT.
--- NOTE | 2024-10-13 03:50 | NUR ---
pt RESTING IN THE BED WITH EYES CLOSED. RR EVEN AND UNLABORED. CALL LIGHT WITHIN REACH.
--- NOTE | 2024-10-13 04:06 | NUR ---
pt RESTING IN THE BED WITH EYES CLOSED. RR EVEN AND UNLABORED. CALL LIGHT WITHIN REACH.
[2024-10-13 05:18] LABS: BASOPHILS 0.1 % (0.2-1.2); EOSINOPHILS 0 % (0.8-7.0); LYMPHOCYTES 3.3 % (21.8-53.1); MCH 31.8 PG (25.7-32.2); MCHC 32.2 g/dL (32.3-36.5); MCV 98.8 fL (79.0-92.2); MONOCYTES 0.3 % (5.3-12.2); NEUTROPHILS 95.6 % (34.0-67.9); RBC 4.28 M/uL (4.63-6.08)
[2024-10-13 05:35] LABS: ALT (SGPT) 26.0 U/L (14-59); AST (SGOT) 14.0 U/L (15-37); GLOMERULAR FILTRATION RATE,EST 52.0 mL/min (>60); PHOSPHORUS, INORGANIC 3.8 mg/dL (2.5-4.9); PROTEIN, TOTAL 7.0 g/dL (6.4-8.2); UREA NITROGEN 21.0 mg/dL (7-18)
--- NOTE | 2024-10-13 06:43 | NUR ---
pt RESTED THROUGH OUT THE NIGHT. IV ABX ADMINISTERED PER ORDER. pt ON 3LNC AT NIGHT PER PATIENT HOME ROUTINE. pt HAS COARSE LUNG SOUNDS THROUGH OUT.
--- NOTE | 2024-10-13 07:20 | NUR ---
REPORT RECEIVED FROM SERVICE MEMBER. PT STANDING AT BEDSIDE TO USE URINAL. UPDATED ON PLAN OF CARE FOR TODAY. DENIES FURTHER NEEDS, CALL LIGHT IN REACH
--- NOTE | 2024-10-13 07:35 | NUR ---
BLOOD SUGAR 385. DR SANCHEZ NOTIFIED PER PARAMETERS. NEW ORDER RECEIVED
--- NOTE | 2024-10-13 07:45 | NUR ---
PATIENT IN CHAIR AT THIS TIME. CATERING CONVENTION SERVICES MANAGER ASSISTED PATIENT TO CHAIR FROM BED, CATERING CONVENTION SERVICES MANAGER CHARTEED BLOOD SUGAR, CATERING CONVENTION SERVICES MANAGER ALSO PROVIDED PATIENT WITH NEW LINENS. CALL LIGHT WITHIN REACH, NO FURTHER NEEDS AT THIS TIME.
[2024-10-13] MEDS ORDERED: ALBUTEROL/IPRATROPIUM 3 ML NEB INH SCH (08:00)
--- NOTE | 2024-10-13 08:40 | NUR ---
PT RESTING IN CHAIR, WATCHING TV. PT DONE WITH BREAKFAST AT THIS TIME. TRAY CLEARED. CALL LIGHT IN REACH
[2024-10-13] MEDS ORDERED: ENOXAPARIN SODIUM 40 MG/0.4 ML SYR SUB-Q SCH (09:00)
[2024-10-13] MEDS ORDERED: INSULIN GLARGINE-YFGN 100 UNIT/ML ML SUB-Q SCH (09:00)
[2024-10-13] MEDS ORDERED: predniSONE 20 MG TAB PO SCH (09:00)
--- NOTE | 2024-10-13 09:05 | NUR ---
RT AT BEDSIDE FOR BREATHING TREATMENTS. PT AT BEDSIDE. PT SITTING IN CHAIR, DENIES NEEDS
--- NOTE | 2024-10-13 09:05 | NUR ---
USES 2 LPM AT NIGHT AND 3 LPM PRN DAY.
[2024-10-13] MEDS ORDERED: ROPINIROLE HCL 1 MG TAB PO SCH (09:42)
--- NOTE | 2024-10-13 10:06 | NUR ---
PATIENT IN CHAIR AT THIS TIME. EMPLOYEE COMMUNICATIONS COORDINATOR CHARTED VITALS AND I&O'S. CALL LIGHT WITHIN REACH, NO FURTHER NEEDS AT THIS TIME.
--- NOTE | 2024-10-13 10:37 | NUR ---
UR CLINICAL REVIEW: GIGI, MEETS OBSERVATION FOR PNEUMONIA FOR POSSIBLE ASPIRATION PNEUMONIA AND COPD EXACERBATION IV STEROIDS AND IV ANTIBIOTICS, OXYGEN NEEDED OVERNIGHT, PNEUMONIA SEVERITY INDEX CLASS III [id number] OBS 10/12/2024 @ 1927 ORDER MATCHES REG AUTH PENDING, CLINICALS TO BE FAXED TODAY PLAN TO DC TO HOME TODAY.
--- NOTE | 2024-10-13 11:00 | NUR ---
Spoke with Shan and his . He denies needs. Orginally came in as he had cp, he now believes the pain was due to coughing. He uses a wc outside and a walker in the home. He denies any needs. He lives with his and their adult son assists them. He has ramp into the home and a cg in the home 3x weeks. Both pt and deny any needs. They are financially stable and do not have safety concerns. Plan for dc to home when medically cleared by the hospitalist.
--- NOTE | 2024-10-13 11:04 | NUR ---
PT RESTING IN CHAIR, WATCHING TV. X2 VISITORS AT BEDSIDE. PROVIDED PT WITH WARM BLANKET PER REQUEST. URINAL EMPTIED. DENIES FURTHER NEEDS, CALL LIGHT IN REACH
[2024-10-13] MEDS ORDERED: PHARMACY RENAL DOSE ADJUSTMENT 1 DOSE MISC PO SCH (12:00)
--- NOTE | 2024-10-13 12:01 | NUR ---
PATIENT IN CHAIR AT THIS TIME. CLOTHES DRIER ASSEMBLER CHARTED BLOOD SUGAR. CALL LIGHT WITHIN REACH, NO FURTHER NEEDS.
--- NOTE | 2024-10-13 12:12 | NUR ---
PT RESTING IN CHAIR, WATCHING TV, FAMILY MEMBER AT BEDSIDE. INSULIN GIVEN PER ORDER. ICE WATER PROVIDED PER REQUEST. DENIES FURTHER NEEDS AT THIS TIME, CALL LIGHT IN REACH. CPOX IN PLACE, 94% ON RA
--- NOTE | 2024-10-13 12:45 | NUR ---
DR SANCHEZ AT BEDSIDE FOR ROUNDING
[2024-10-13] MEDS ORDERED: CEFDINIR300 MG PO (13:04)
[2024-10-13] MEDS ORDERED: METRONIDAZOLE500 MG PO (13:04)
[2024-10-13] MEDS ORDERED: PREDNISONE20 MG PO (13:06)
[2024-10-13] MEDS ORDERED: AZITHROMYCIN250 MG PO (13:45)
[2024-10-13] MEDS ORDERED: METFORMIN HCL500 M3 PO (13:46)
[2024-10-13] MEDS ORDERED: ROPINIROLE HCL4 MG PO (13:46)
[2024-10-13] MEDS ORDERED: VITAMIN C500 M1 PO (13:49)
[2024-10-13] MEDS ORDERED: VITAMIN D325 MCG PO (13:50)
[2024-10-13] MEDS ORDERED: VITAMIN B-121000 MCG PO (13:51)
[2024-10-13] MEDS ORDERED: FLONASE ALLERG9.9 ML NAS (13:51)
[2024-10-13] MEDS ORDERED: CARBOXYMETHYLC1 EAC1 OU (13:52)
[2024-10-13] MEDS ORDERED: LUBRICANT EYE D15 ML OU (13:53)
[2024-10-13] MEDS ORDERED: DALIRESP250 MCG PO (13:53)
[2024-10-13] MEDS ORDERED: DOXEPIN HCL10 MG PO (13:54)
[2024-10-13] MEDS ORDERED: ZOLOFT50 MG PO (13:55)
--- NOTE | 2024-10-13 13:55 | NUR ---
MED REC COMPLETE
--- NOTE | 2024-10-13 14:20 | NUR ---
PT DRESSED IN OWN CLOTHES. DC PACKET AND EDUCATION GIVEN TO PT AND , PT AND VERBALIZE UNDERSTANDING. ORIGINAL POLST FORM RETURNED TO PT. PT STATES ALL QUESTIONS HAVE BEEN ANSWERED. PT AMBULATES TO WHEELCHAIR WITH SBA, WHEELED TO FRONT OF BUILDING BY NURSING PERSONEL.
== END 2024-10-13 14:34 | disposition home or self-care (01) ==
LOC: ED 16:47 → MS 16:48
PROVIDERS: Emergency Medicine; ADMIT Family Medicine; ATTEND Family Medicine
DX: J43.9 Emphysema, unspecified (principal); R07.89 Other chest pain; E11.9 Type 2 diabetes mellitus without complications; I10 Essential (primary) hypertension; F17.200 Nicotine dependence, unspecified, uncomplicated; E78.5 Hyperlipidemia, unspecified; Z88.1 Allergy status to other antibiotic agents; Z88.8 Allergy status to other drugs, medicaments and biological substances; Z79.899 Other long term (current) drug therapy; Z79.4 Long term (current) use of insulin; Z79.84 Long term (current) use of oral hypoglycemic drugs; Z79.82 Long term (current) use of aspirin
CPT/HCPCS: 36415; 71045; 71260; 80053; 83735; 84100; 84484; 85025; 93005; 93010; 94640; 94668; 94762; 96365; 96366; 96367; 96368; 96372; 96374; 96375; 99285-25; A9270; G0378; J0456; J0696; J1650; J1815; J2919; J7060; J7512; Q9967